=== PATIENT | female | born 1965 | race Caucasian/White ===

== ENCOUNTER → 2017-09-08 11:16 | Outpatient (CLI) | payer MEDICAID, SELFPAY ==
--- NOTE | 2017-09-08 11:21 | XR_ITS ---
XR knee LT 3V HISTORY: ITS.REASON: LEFT KNEE PAIN ORDERING PHYSICIAN: Bruce Ibrahim MD PATIENT AGE: 52 years COMPARISON: FINDINGS: No fracture or dislocation. No lytic or blastic change. Normal mineralization. No significant arthritic changes evident. No other significant findings IMPRESSION: Negative Knee
== END ==
PROVIDERS: PCP Family Medicine; Visit Provider Family Medicine
DX: M25.562 Pain in left knee (principal)
CPT/HCPCS: 73562

== ENCOUNTER → 2017-09-30 09:02 | Outpatient (CLI) | payer MEDICAID, SELFPAY ==
[2017-09-30 13:55] LABS: Alanine Aminotransferase 22 U/L (12-78); Albumin Level 3.8 gm/dL (3.4-5.0); Alkaline Phosphatase 87 U/L (46-116); Aspartate Amino Transferase 7 U/L (15-37); Bilirubin,Direct 0.1 mg/dL (0.0-0.2); Bilirubin,Indirect 0.5 mg/dL (0.0-0.9); Bilirubin,Total 0.6 mg/dL (0.2-1.0); Chol/HDL Ratio 2.7 (1-3.5); Cholesterol 144 mg/dL (140-200); HDL Cholesterol 53 mg/dL (29-89); LDL Cholesterol 63 mg/dL (0-130); Total Protein,Serum 6.8 gm/dL (6.4-8.2); Triglycerides 138 mg/dL (30-200); VLDL Cholesterol 28 mg/dL (0-40)
[2017-09-30 13:58] LABS: Hemoglobin A1C 6.2 % (0.0-7.0)
== END ==
PROVIDERS: PCP Family Medicine; Visit Provider Internal Medicine
DX: I25.10 Atherosclerotic heart disease of native coronary artery without angina pectoris (principal); E11.9 Type 2 diabetes mellitus without complications
CPT/HCPCS: 36415; 80061; 80076; 83036

== ENCOUNTER → 2018-04-13 08:13 | Outpatient (CLI) | payer MEDICAID, SELFPAY ==
[2018-04-13 15:53] LABS: Alanine Aminotransferase 21 U/L (12-78); Albumin Level 3.7 gm/dL (3.4-5.0); Alkaline Phosphatase 88 U/L (46-116); Anion Gap 12.8 mEq/L (5-15); Aspartate Amino Transferase 5 U/L (15-37); Bilirubin,Direct 0.1 mg/dL (0.0-0.2); Bilirubin,Indirect 0.3 mg/dL (0.0-0.9); Bilirubin,Total 0.4 mg/dL (0.2-1.0); Blood Urea Nitrogen 11 mg/dL (7-18); Calcium 9.5 mg/dL (8.5-10.1); Carbon Dioxide 29 mmol/L (21.0-32.0); Chloride 103 mmol/L (98-107); Chol/HDL Ratio 2.6 (1-3.5); Cholesterol 146 mg/dL (140-200); Creatinine,Serum 0.78 mg/dL (0.55-1.02); Estimated Glomerular Filt Rate 78 ml/min (>60); Free Thyroxine Index 3.7 ug/dL (5.93-13.13); GFR (African American) 94 ML/MIN (>60); Glucose 104 mg/dL (74-106); HDL Cholesterol 56 mg/dL (29-89); LDL Cholesterol 60 mg/dL (0-130); Potassium 3.8 mmoL/L (3.5-5.1); Sodium 141 mmol/L (136-145); Total Protein,Serum 6.7 gm/dL (6.4-8.2); Triglycerides 149 mg/dL (30-200); Triiodothryronine (T3) Uptake 34 % (31-39); VLDL Cholesterol 30 mg/dL (0-40)
[2018-04-14 10:20] LABS: Hemoglobin A1C 6.5 % (0.0-7.0)
== END ==
PROVIDERS: PCP Family Medicine; Visit Provider Urology
DX: E03.9 Hypothyroidism, unspecified (principal); E11.9 Type 2 diabetes mellitus without complications; E78.5 Hyperlipidemia, unspecified; I10 Essential (primary) hypertension; I11.9 Hypertensive heart disease without heart failure; I25.10 Atherosclerotic heart disease of native coronary artery without angina pectoris
CPT/HCPCS: 36415; 80048; 80061; 80076; 83036; 84436; 84443; 84479

== ENCOUNTER → 2018-04-14 07:09 | Outpatient (CLI) | payer MEDICAID, SELFPAY ==
--- NOTE | 2018-04-14 07:10 | NM_ITS ---
SPECT MYOCARDIAL PERFUSION SCAN, REST AND STRESS: EXERCISE STRESS: [facility] REVIEW QGS EF AND WALL MOTION EVALUATION: QPS - PERFUSION EVALUATION: HISTORY: CAD, HTN, DM PROCEDURE: Rest imaging performed after administration of10.67 millicuries Tc MIBI. Dose administered at7:20 a.m., with imaging thereafter. Stress imaging was then performed following7 minutes 30 seconds of exercise stress. The patient achieved a heart [id number] with projected heart rate of143 . Resting BP133/67 with stress 164/76. At maximum exercise stress,32.9 millicuries Tc MIBI administered at8:45 a.m. with [id number] minutes thereafter. FINDINGS: Perfusion Evaluation: The single slice spect images as well as the [facility] bull's-eye data summary were reviewed. Wall Motion and Ejection Fraction Evaluation: Gated SPECT review and analysis used to evaluate these features. There is a 48 % left ventricular ejection fraction. There seems to be good wall motion Decreased myocardial activity in the lateral wall with both stress and rest gated images calculated ejection fraction of 48% with lateral wall hypokinesis IMPRESSION: Previous transmural myocardial infarction involving the lateral wall without reversible ischemia accompanied by mild regional wall motion abnormality. Clinical correlation advised
--- NOTE | 2018-04-14 07:24 | HMH.ITSHM ---
Current Home Medications as stated by this patient Sarah Reddy or procurement representative. []LISINOPRIL/HCTZ CRESTOR SYNTHROID ASA METFORMIN VITAMINS LASIX
== END ==
PROVIDERS: PCP Family Medicine; Visit Provider Internal Medicine
DX: I25.10 Atherosclerotic heart disease of native coronary artery without angina pectoris (principal); E11.9 Type 2 diabetes mellitus without complications; E03.9 Hypothyroidism, unspecified; E78.5 Hyperlipidemia, unspecified; I10 Essential (primary) hypertension; I11.9 Hypertensive heart disease without heart failure
CPT/HCPCS: 78452; 93017; A9502

== ENCOUNTER → 2018-05-27 08:47 | Outpatient (CLI) | payer MEDICAID, SELFPAY ==
--- NOTE | 2018-05-27 08:52 | US_ITS ---
US abdomen limited History:Right upper quadrant pain with nausea Ordering Physician:Bruce Ibrahim MD Patient Age: 53 years Comparison:None Findings: Pancreas:Unremarkable. No obvious mass or abnormal fluid collection. No ductal dilatation Liver:Unremarkable. No obvious mass or abnormal fluid collection. No ductal dilatation Right Kidney:Unremarkable. Normal size and echogenicity. No hydronephrosis Gallbladder:No gallstones, gallbladder wall thickening, pericholecystic fluid, or biliary dilatation. Impression:Negative gallbladder/right upper quadrant ultrasound
== END ==
PROVIDERS: PCP Family Medicine; Visit Provider Family Medicine
DX: R10.11 Right upper quadrant pain (principal)
CPT/HCPCS: 76705

== ENCOUNTER → 2018-06-02 10:02 | Outpatient (CLI) | payer MEDICAID, SELFPAY ==
--- NOTE | 2018-06-02 10:06 | NM_ITS ---
NM hepatobiliary wo pharm HISTORY: Right upper quadrant pain ITS.REASON: RUQ PAIN ORDERING PHYSICIAN: Bruce Ibrahim MD PATIENT AGE: 53 years COMPARISON: None DOSE: 8.39 MCI TC Choletec INJ into LT ANT Fatty Meal Ensure FINDINGS: Homogeneous activity is present within the hepatic parenchyma. Activity is present in the gallbladder by 10 minutes. Activity is present in the small bowel by 20 minutes. The gallbladder ejection fraction is calculated to be 49% The patient reported mild pain with fatty meal. IMPRESSION: Unremarkable hepatobiliary scan and gallbladder ejection fraction. No evidence of common or cystic duct obstruction with normal gallbladder ejection fraction Patient did report mild pain with the fatty meal
--- NOTE | 2018-06-02 10:29 | HMH.ITSHM ---
Current Home Medications as stated by this patient Sarah Reddy or telesales representative. []ROSUVASTATIN PANTOPRAZOLE MONTELUKAST METFORMIN MEDROXYPROGESTERONE LISINOPRIL LEVOTHYROXINE FUROSEMIDE ASA
== END ==
PROVIDERS: PCP Family Medicine; Visit Provider Family Medicine
DX: R10.11 Right upper quadrant pain (principal)
CPT/HCPCS: 78226; A9537

== ENCOUNTER → 2018-07-13 10:18 | Outpatient (CLI) | payer MEDICAID, SELFPAY ==
[2018-07-13 13:37] LABS: Basophils # 0.1 K/mm3 (0-0.2); Eosinophils # 0.1 K/mm3 (0.0-0.4); Hematocrit 38.5 % (37.0-47.0); Hemoglobin 12.9 g/dL (12.2-16.2); Lymphocytes # 2.3 K/mm3 (0.7-4.5); Lymphocytes % 37.1 % (10-50); Mean Corpuscular HGB Conc 33.5 g/dL (31.8-35.4); Mean Corpuscular Hemoglobin 29.2 pg (27.0-31.2); Mean Corpuscular Volume 87.1 fl (81-99); Mean Platelet Volume 7.5 fl (7.4-10.4); Monocytes # 0.3 K/mm3 (0.1-1.0); Neutrophils # 3.5 K/mm3 (1.8-7.8); Neutrophils % 54.9 % (37.0-80.0); Platelet Count 454 K/mm3 (142-424); Red Blood Count 4.42 M/mm3 (4.20-5.40); Red Cell Distribution Width 12.9 % (11.5-17.5); White Blood Count 6.3 K/mm3 (4.8-10.8)
[2018-07-13 14:02] LABS: Alanine Aminotransferase 20 U/L (12-78); Albumin Level 3.9 gm/dL (3.4-5.0); Albumin/Globulin Ratio 1.2 (1.1-1.8); Alkaline Phosphatase 82 U/L (46-116); Anion Gap 16.1 mEq/L (5-15); Aspartate Amino Transferase 10 U/L (15-37); Bilirubin,Total 0.5 mg/dL (0.2-1.0); Blood Urea Nitrogen 12 mg/dL (7-18); Calcium 9.9 mg/dL (8.5-10.1); Carbon Dioxide 27 mmol/L (21.0-32.0); Chloride 101 mmol/L (98-107); Creatinine,Serum 0.74 mg/dL (0.55-1.02); Estimated Glomerular Filt Rate 82 ml/min (>60); GFR (African American) 99 ML/MIN (>60); Globulin 3.2 gm/dl (1.3-3.2); Glucose 101 mg/dL (74-106); Potassium 4.1 mmoL/L (3.5-5.1); Sodium 140 mmol/L (136-145); Total Protein,Serum 7.1 gm/dL (6.4-8.2)
== END ==
PROVIDERS: PCP Family Medicine; Visit Provider Surgery
DX: K82.8 Other specified diseases of gallbladder (principal)
CPT/HCPCS: 36415; 80053; 85025

== ENCOUNTER → 2018-10-12 10:19 | Outpatient (CLI) | payer MEDICAID, SELFPAY ==
[2018-10-12 13:58] LABS: Basophils # 0.1 K/mm3 (0-0.2); Basophils % 1.3 % (0.1-2.0); Eosinophils # 0.2 K/mm3 (0.0-0.4); Eosinophils % 3.1 % (0.1-12.0); Hematocrit 36.2 % (37.0-47.0); Hemoglobin 11.7 g/dL (12.2-16.2); Lymphocytes # 2.2 K/mm3 (0.7-4.5); Lymphocytes % 34.5 % (10-50); Mean Corpuscular HGB Conc 32.4 g/dL (31.8-35.4); Mean Corpuscular Hemoglobin 27.6 pg (27.0-31.2); Mean Platelet Volume 8.4 fl (7.4-10.4); Monocytes # 0.3 K/mm3 (0.1-1.0); Neutrophils # 3.5 K/mm3 (1.8-7.8); Neutrophils % 56.1 % (37.0-80.0); Platelet Count 431 K/mm3 (142-424); Red Blood Count 4.26 M/mm3 (4.20-5.40); White Blood Count 6.3 K/mm3 (4.8-10.8)
[2018-10-12 14:30] LABS: Alanine Aminotransferase 23 U/L (12-78); Albumin Level 3.8 gm/dL (3.4-5.0); Alkaline Phosphatase 88 U/L (46-116); Aspartate Amino Transferase 13 U/L (15-37); Bilirubin,Direct 0.1 mg/dL (0.0-0.2); Bilirubin,Indirect 0.3 mg/dL (0.0-0.9); Bilirubin,Total 0.4 mg/dL (0.2-1.0); Blood Urea Nitrogen 10 mg/dL (7-18); Carbon Dioxide 26 mmol/L (21.0-32.0); Chloride 106 mmol/L (98-107); Chol/HDL Ratio 2.7 (1-3.5); Cholesterol 134 mg/dL (140-200); Estimated Glomerular Filt Rate 88 ml/min (>60); Free T4 (Free Thyroxine) 1.25 ng/dl (0.76-1.46); GFR (African American) 106 ML/MIN (>60); Glucose 99 mg/dL (74-106); HDL Cholesterol 50 mg/dL (29-89); LDL Cholesterol 57 mg/dL (0-130); Sodium 142 mmol/L (136-145); Thyroid Stimulating Hormone 1.54 uIU/ml (0.358-3.740); Total Protein,Serum 6.4 gm/dL (6.4-8.2); Triglycerides 137 mg/dL (30-200); VLDL Cholesterol 27 mg/dL (0-40)
[2018-10-12 14:34] LABS: Hemoglobin A1C 6.7 % (0.0-7.0)
== END ==
PROVIDERS: PCP Family Medicine; Visit Provider Nurse Practitioner Family
DX: E07.9 Disorder of thyroid, unspecified (principal); E11.9 Type 2 diabetes mellitus without complications; E78.5 Hyperlipidemia, unspecified
CPT/HCPCS: 36415; 80048; 80061; 80076; 83036; 84439; 84443; 85025

== ENCOUNTER → 2019-04-08 10:05 | Outpatient (CLI) | payer OTHER, SELFPAY ==
--- NOTE | 2019-04-08 10:06 | CA_ITS ---
APPROVED REPORT Principal Librarian: Carol Huitron RVT Laterality: Bilateral Study Quality: Good Indications: DARNELL Risk Factors Diabetes Doppler Spectral Velocity Analysis ECA (R) 116.40/18.40 cm/s ECA (L) 75.80/15.30 cm/s dICA (R) 76.20/23.10 cm/s dICA (L) 97.70/32.10 cm/s Michelle (R) 82.40/34.70 cm/s Michelle (L) 88.90/34.30 cm/s pICA (R) 79.70/29.10 cm/s pICA (L) 75.70/25.80 cm/s dCCA (R) 73.70/24.80 cm/s dCCA (L) 75.80/20.70 cm/s pCCA (R) 97.70/22.30 cm/s pCCA (L) 91.20/24.50 cm/s Vert (R) 53.80/12.90 cm/s Vert (L) 63.40/20.40 cm/s ICA/CCA 1.12 ICA/CCA 1.29 Conclusion Study suggests normal bilateral internal cartoid arteries, no evidence of stenosis. Antegrade flow seen bilateral vertebral arteries. Electronically signed by : Nabor Wu MD 04/08/2019 15:42:07
== END ==
PROVIDERS: PCP Family Medicine; Visit Provider Physician Assistant
DX: I65.23 Occlusion and stenosis of bilateral carotid arteries (principal)
CPT/HCPCS: 93880

== ENCOUNTER → 2019-06-13 09:33 | Outpatient (CLI) | payer OTHER, SELFPAY ==
[2019-06-13 13:43] LABS: Basophils # 0.1 K/mm3 (0-0.2); Basophils % 1.2 % (0.1-2.0); Eosinophils # 0.3 K/mm3 (0.0-0.4); Hematocrit 35.6 % (37.0-47.0); Lymphocytes # 2.3 K/mm3 (0.7-4.5); Lymphocytes % 34.3 % (10-50); Mean Corpuscular HGB Conc 33.7 g/dL (31.8-35.4); Mean Corpuscular Hemoglobin 28.3 pg (27.0-31.2); Mean Platelet Volume 8.3 fl (7.4-10.4); Monocytes # 0.3 K/mm3 (0.1-1.0); Monocytes % 4.6 % (1.7-9.3); Neutrophils # 3.7 K/mm3 (1.8-7.8); Platelet Count 505 K/mm3 (142-424); Red Blood Count 4.24 M/mm3 (4.20-5.40); Red Cell Distribution Width 13.4 % (11.5-17.5); White Blood Count 6.7 K/mm3 (4.8-10.8)
[2019-06-13 13:55] LABS: Alanine Aminotransferase 21 U/L (9-52); Albumin Level 3.8 g/dL (3.4-5.0); Albumin/Globulin Ratio 1.3 (1.1-1.8); Alkaline Phosphatase 81 U/L (46-116); Amylase 63 U/L (25-115); Anion Gap 15.1 mEq/L (5-15); Aspartate Amino Transferase 12 U/L (15-37); Bilirubin,Total 0.4 mg/dL (0.2-1.0); Blood Urea Nitrogen 11 mg/dL (7-18); Calcium 9.6 mg/dL (8.5-10.1); Carbon Dioxide 28 mmol/L (21.0-32.0); Chloride 104 mmol/L (98-107); Creatinine,Serum 0.75 mg/dL (0.55-1.02); Estimated Glomerular Filt Rate 81 ml/min (>60); GFR (African American) 97 ML/MIN (>60); Globulin 2.9 gm/dl (1.3-3.2); Glucose 100 mg/dL (74-106); Lipase 105 u/L (73-393); Potassium 4.1 mmoL/L (3.5-5.1); Sodium 143 mmol/L (137-145); Total Protein,Serum 6.7 g/dL (6.4-8.2)
== END ==
PROVIDERS: Visit Provider Nurse Practitioner Family
DX: R10.11 Right upper quadrant pain (principal); R11.10 Vomiting, unspecified
CPT/HCPCS: 36415; 80053; 82150; 83690; 85025

== ENCOUNTER → 2019-06-14 09:36 | Outpatient (CLI) | payer OTHER, SELFPAY ==
--- NOTE | 2019-06-14 09:38 | MR_ITS ---
PROCEDURE: MR ABDOMEN WO/W CON CLINICAL INDICATION: ABDOMINAL PAIN, VOMITING Nausea COMPARISON: Status post cholecystectomy TECHNIQUE: Routine multiplanar multisequence exam with and without contrast administration was performed. 18 milliliters ProHance was given. FINDINGS: There is some patient motion artifact degradation of images. There is also some associated pulse a mckenzie artifact and artifact associated with bowel peristalsis. No space-occupying organ lesions are apparent. There is some signal loss on the opposed phase images throughout the liver indicating fatty infiltration. No abnormal mass or fluid collection is seen in the gallbladder fossa. No biliary ductal dilatation is apparent. There is no ascites or lymphadenopathy. IMPRESSION: No acute findings status post cholecystectomy. Dictated by: Carl Jensen 06/14/2019 13:22 Electronically signed by Carl Jensen in [place] 06/14/2019 13:22
== END ==
PROVIDERS: PCP Family Medicine; Visit Provider Nurse Practitioner Family
DX: R10.11 Right upper quadrant pain (principal); R11.10 Vomiting, unspecified
CPT/HCPCS: 74183; 76376; A9576

== ENCOUNTER → 2019-10-05 09:51 | Outpatient (CLI) | payer OTHER, SELFPAY ==
[2019-10-05 10:30] LABS: Basophils # 0.1 K/mm3 (0-0.2); Basophils % 0.9 % (0.1-2.0); Eosinophils # 0.1 K/mm3 (0.0-0.4); Eosinophils % 1.6 % (0.1-12.0); Hematocrit 36.8 % (37.0-47.0); Hemoglobin 12.5 g/dL (12.2-16.2); Lymphocytes # 2.5 K/mm3 (0.7-4.5); Lymphocytes % 29.2 % (10-50); Mean Corpuscular Hemoglobin 29.9 pg (27.0-31.2); Mean Platelet Volume 7.5 fl (7.4-10.4); Monocytes # 0.4 K/mm3 (0.1-1.0); Monocytes % 4.9 % (1.7-9.3); Neutrophils # 5.4 K/mm3 (1.8-7.8); Neutrophils % 63.3 % (37.0-80.0); Platelet Count 414 K/mm3 (142-424); Red Blood Count 4.18 M/mm3 (4.20-5.40); Red Cell Distribution Width 13.9 % (11.5-17.5); White Blood Count 8.6 K/mm3 (4.8-10.8)
[2019-10-05 11:18] LABS: Hemoglobin A1C 6.4 % (4.0-6.0)
[2019-10-05 11:32] LABS: Alanine Aminotransferase 18 U/L (12-78); Albumin Level 4.5 g/dl (3.5-5.0); Alkaline Phosphatase 87 U/L (38-126); Anion Gap 14.6 mEq/L (5-15); Aspartate Amino Transferase 17 U/L (14-36); Bilirubin,Indirect 0.4 mg/dL (0.0-0.9); Bilirubin,Total 0.4 mg/dl (0.2-1.3); Bilirubin,Unconjugated 0.4 mg/dL (0.0-1.1); Blood Urea Nitrogen 15 mg/dl (7-17); Calcium 10.7 mg/dl (8.4-10.2); Carbon Dioxide 29 mmol/L (22.0-30.0); Chloride 100 mmol/L (98-107); Chol/HDL Ratio 2.3 (1-3.5); Cholesterol 131 mg/dl (140-200); Estimated Glomerular Filt Rate 75 ml/min (>60); GFR (African American) 90 ML/MIN (>60); Glucose 105 mg/dl (74-100); HDL Cholesterol 58 mg/dl (40-60); Potassium 4.6 mmoL/L (3.5-5.1); Sodium 139 mmol/L (136-145); Triglycerides 208 mg/dl (30-150); VLDL Cholesterol 42 mg/dL (0-40)
[2019-10-05 11:43] LABS: Direct LDL Cholesterol 70.15 mg/dL (100-129)
== END ==
PROVIDERS: Visit Provider Nurse Practitioner Family
DX: E11.9 Type 2 diabetes mellitus without complications (principal); E78.2 Mixed hyperlipidemia; I10 Essential (primary) hypertension; I11.9 Hypertensive heart disease without heart failure; I25.10 Atherosclerotic heart disease of native coronary artery without angina pectoris; I65.23 Occlusion and stenosis of bilateral carotid arteries; Z79.84 Long term (current) use of oral hypoglycemic drugs
CPT/HCPCS: 80048; 80061; 80076; 83036; 85025

== ENCOUNTER → 2019-10-24 14:33 | Outpatient (CLI) | payer OTHER, SELFPAY ==
[2019-10-26 13:30] LABS: Covid-19 Nasal PCR Sendout Lex Not Detected
== END ==
PROVIDERS: Visit Provider Family Medicine
DX: Z03.818 Encounter for observation for suspected exposure to other biological agents ruled out (principal); Z11.59 Encounter for screening for other viral diseases
CPT/HCPCS: U0004

== ENCOUNTER → 2020-10-02 15:21 | Outpatient (CLI) | payer OTHER, SELFPAY ==
--- NOTE | 2020-10-02 15:25 | XR_ITS ---
PROCEDURE: XR HAND LT MIN 3V CLINICAL INDICATION: dropped post on her left hand COMPARISON: No exams were available for comparison FINDINGS: Comminuted fracture involves the tuft of the distal phalanx of the index finger with no displacement. Ring artifact is present along the proximal phalanx of the 4th finger and could obscure an underlying fracture. The joint spaces are well-preserved. No significant degenerative/arthritic changes. No erosive changes evident. Other findings:None. IMPRESSION: Comminuted nondisplaced fracture distal phalanx 2nd digit Dictated by: Nabor Wu MD 10/02/2020 15:56 Nabor Wu MD in [place] 10/02/2020 15:56
== END ==
PROVIDERS: PCP Family Medicine; Visit Provider Urology
DX: M79.642 Pain in left hand (principal)
CPT/HCPCS: 73130

== ENCOUNTER → 2020-10-03 08:24 | Outpatient (CLI) | payer OTHER, SELFPAY ==
[2020-10-03 10:13] LABS: Basophils # 0.1 K/mm3 (0-0.2); Basophils % 1.3 % (0.1-2.0); Eosinophils # 0.2 K/mm3 (0.0-0.4); Eosinophils % 2.4 % (0.1-12.0); Hematocrit 34.9 % (37.0-47.0); Hemoglobin 11.7 g/dL (12.2-16.2); Lymphocytes # 2.4 K/mm3 (0.7-4.5); Lymphocytes % 34.4 % (10-50); Mean Corpuscular HGB Conc 33.6 g/dL (31.8-35.4); Mean Corpuscular Hemoglobin 28.8 pg (27.0-31.2); Mean Corpuscular Volume 85.6 fl (81-99); Mean Platelet Volume 8.6 fl (7.4-10.4); Monocytes # 0.4 K/mm3 (0.1-1.0); Platelet Count 430 K/mm3 (142-424); Red Blood Count 4.07 M/mm3 (4.20-5.40); Red Cell Distribution Width 13.8 % (11.5-17.5); White Blood Count 7.1 K/mm3 (4.8-10.8)
[2020-10-03 10:42] LABS: Hemoglobin A1C 5.8 % (4.0-6.0)
[2020-10-03 10:43] LABS: Chloride 102 mmol/L (98-107); Sodium 138 mmol/L (136-145)
[2020-10-03 10:44] LABS: Potassium 4.3 mmoL/L (3.5-5.1)
[2020-10-03 10:46] LABS: Alanine Aminotransferase 18 U/L (12-78); Albumin Level 4.3 g/dl (3.5-5.0); Alkaline Phosphatase 78 U/L (38-126); Anion Gap 15.3 mEq/L (5-15); Aspartate Amino Transferase 18 U/L (14-36); Bilirubin,Direct 0.2 mg/dl (0.0-0.4); Bilirubin,Indirect 0.4 mg/dL (0.0-0.9); Bilirubin,Total 0.6 mg/dl (0.2-1.3); Bilirubin,Unconjugated 0.4 mg/dL (0.0-1.1); Blood Urea Nitrogen 14 mg/dl (7-17); Carbon Dioxide 25 mmol/L (22.0-30.0); Cholesterol 143 mg/dl (140-200); Estimated Glomerular Filt Rate 74 ml/min (>60); GFR (African American) 90 ML/MIN (>60); Triglycerides 228 mg/dl (30-150); VLDL Cholesterol 46 mg/dL (0-40)
[2020-10-03 10:47] LABS: Calcium 9.5 mg/dl (8.4-10.2); Glucose 94 mg/dl (74-100); HDL Cholesterol 44 mg/dl (40-60); Total Protein,Serum 6.7 g/dl (6.3-8.2)
[2020-10-03 10:58] LABS: Direct LDL Cholesterol 61.48 mg/dL (100-129)
[2020-10-03 11:03] LABS: Free T4 (Free Thyroxine) 1.52 ng/dl (0.78-2.19)
[2020-10-03 11:16] LABS: Thyroid Stimulating Hormone 3.15 uIU/mL (0.465-4.68)
[2020-10-03 12:19] LABS: Hemoglobin A1C 5.9 % (4.0-6.0)
== END ==
PROVIDERS: Visit Provider Urology
DX: I25.10 Atherosclerotic heart disease of native coronary artery without angina pectoris (principal); I11.9 Hypertensive heart disease without heart failure; E78.2 Mixed hyperlipidemia; E11.9 Type 2 diabetes mellitus without complications; Z79.84 Long term (current) use of oral hypoglycemic drugs
CPT/HCPCS: 36415; 80048; 80061; 80076; 83036; 84439; 84443; 85025

== ENCOUNTER → 2020-10-08 12:46 | Outpatient (CLI) | payer OTHER, SELFPAY ==
--- NOTE | 2020-10-08 12:47 | CA_ITS ---
APPROVED REPORT Garment Cutter: LORIN Laterality: Bilateral Study Quality: Good Indications: dizziness, Family hx-DARNELL Doppler Spectral Velocity Analysis ECA (R) 86.00/16.50 cm/s ECA (L) 57.70/14.40 cm/s dICA (R) 86.80/43.40 cm/s dICA (L) 100.20/50.10 cm/s Michelle (R) 88.00/40.00 cm/s Michelle (L) 93.10/44.90 cm/s pICA (R) 75.60/26.90 cm/s pICA (L) 49.70/21.90 cm/s dCCA (R) 72.80/28.30 cm/s dCCA (L) 69.60/28.40 cm/s mCCA (R) 101.60/39.70 cm/s mCCA (L) 93.00/45.00 cm/s pCCA (R) 120.80/34.20 cm/s pCCA (L) 120.50/36.70 cm/s Vert (R) 50.10/19.50 cm/s Vert (L) 57.80/23.10 cm/s ICA/CCA 1.20 ICA/CCA 1.40 Findings Duplex evaluation demonstrates stenosis of the right proximal internal carotid artery in the range of 20-49%. Duplex evaluation demonstrates stenosis of the left proximal internal carotid artery in the range of 20-49%. Spectral broadening present in bilateral Internal Carotid arteries. Duplex evaluation demonstrates antegrade flow of the bilateral Vertebral Arteries. Conclusion Duplex evaluation demonstrates stenosis of the right proximal internal carotid artery in the range of 20-49%. Duplex evaluation demonstrates stenosis of the left proximal internal carotid artery in the range of 20-49%. Spectral broadening present in bilateral Internal Carotid arteries. Duplex evaluation demonstrates antegrade flow of the bilateral Vertebral Arteries. Electronically signed by : Dev Walsh, 10/08/2020 15:25:56
== END ==
PROVIDERS: PCP Family Medicine; Visit Provider Urology
DX: R42 Dizziness and giddiness (principal); I25.10 Atherosclerotic heart disease of native coronary artery without angina pectoris; I11.9 Hypertensive heart disease without heart failure; E78.2 Mixed hyperlipidemia
CPT/HCPCS: 93880

== ENCOUNTER → 2020-10-23 12:22 | Outpatient (CLI) | payer OTHER, SELFPAY ==
--- NOTE | 2020-10-23 12:25 | XR_ITS ---
PROCEDURE: XR FINGER LT MIN 2V CLINICAL INDICATION: left 2nd digit fracture COMPARISON: CR XR HAND LT MIN 3V from 10/02/2020 FINDINGS: There is a nondisplaced comminuted fracture involving the tuft of the distal phalanx the index finger not significantly changed. The joint spaces are well-preserved. No significant degenerative/arthritic changes. No erosive changes evident. Other findings:None. IMPRESSION: No change comminuted fracture distal phalanx index finger Dictated by: Nabor Wu MD 10/23/2020 12:32 Nabor Wu MD in [place] 10/23/2020 12:32
== END ==
PROVIDERS: PCP Family Medicine; Visit Provider Orthopaedic Surgery
DX: S62.609A Fracture of unspecified phalanx of unspecified finger, initial encounter for closed fracture (principal)
CPT/HCPCS: 73140

== ENCOUNTER → 2020-11-16 10:16 | Outpatient (CLI) | payer OTHER, SELFPAY ==
--- NOTE | 2020-11-16 10:20 | XR_ITS ---
PROCEDURE: XR FINGER LT MIN 2V CLINICAL INDICATION: LT 2nd digit fx COMPARISON: CR XR FINGER LT MIN 2V from 10/23/2020 FINDINGS: Healing comminuted undisplaced fracture of the tuft of the distal phalanx of the 2nd digit. Bone density is within normal limits. The interphalangeal joints are unremarkable. No significant soft tissue abnormality is noted. IMPRESSION: Healing comminuted undisplaced fracture of the tuft of the distal phalanx of the 2nd digit. Dictated by: Kathia Andres 11/16/2020 13:52 Kathia Andres in [place] 11/16/2020 13:52
== END ==
PROVIDERS: PCP Family Medicine; Visit Provider Orthopaedic Surgery
DX: S62.609A Fracture of unspecified phalanx of unspecified finger, initial encounter for closed fracture (principal)
CPT/HCPCS: 73140

== ENCOUNTER → 2021-06-06 15:40 | Outpatient (CLI) | payer OTHER, SELFPAY | PROVIDERS: Visit Provider Nurse Practitioner | DX: U07.1 COVID-19 (principal) | CPT/HCPCS: C9803; U0003; U0005 ==

== ENCOUNTER → 2021-07-09 17:07 | Outpatient (CLI) | payer OTHER, SELFPAY ==
--- NOTE | 2021-07-09 17:33 | CT_ITS ---
PROCEDURE INFORMATION: Exam: CTA Chest With Contrast Exam date and time: 07/09/2021 5:33 PM Age: 56 years old Clinical indication: Pain; Chest pressure; Additional info: Chest discomfort TECHNIQUE: Imaging protocol: Computed tomographic angiography of the chest with contrast. 3D rendering (Not supervised by radiologist): MIP and/or 3D reconstructed images were created by the technologist. Radiation optimization: All CT scans at this facility use at least one of these dose optimization techniques: automated exposure control; mA and/or kV adjustment per patient size (includes targeted exams where dose is matched to clinical indication); or iterative reconstruction. Contrast material: ISOVUE 370; Contrast volume: 70 ml; Contrast route: INTRAVENOUS (IV); COMPARISON: CR XR CHEST PORTABLE 05/21/2019 7:01 PM FINDINGS: Pulmonary arteries: No acute pulmonary emboli. There are some motion artifacts. No large, central, or segmental emboli. Aorta: There is no aortic aneurysm. There is no evidence of dissection in the chest. Lungs: No acute findings. There is no pulmonary consolidation. No masses. Pleural spaces: Unremarkable. No significant pleural effusion. No pneumothorax. Heart: The heart is not enlarged. Coronary artery calcification is present. No significant pericardial effusion. Heart RV/LV ratio: RV/LV ratio less than 1, approximate 0.8, within normal limits. There is no reflux of contrast into the IVC and hepatic veins to suggest right heart strain. Lymph nodes: No significantly enlarged lymph nodes by short axis criteria. Gallbladder and bile ducts: Cholecystectomy clips. Biliary tree appears within normal limits, as visualized. Bones/joints: There are spinal degenerative changes, with prominent multilevel disc narrrowing and spondylosis. Mild chronic appearing anterior wedge compression deformities in the mid and lower thoracic spine with mild kyphosis. No acute appearing fracture or high-grade listhesis. Soft tissues: There are no soft tissue masses or fluid collections. IMPRESSION: 1. No acute pulmonary emboli. 2. Coronary artery calcifications. No cardiomegaly or signs of acute right heart strain. 3. No acute cardiopulmonary findings. No pulmonary consolidation or signs of vascular congestion. 4. Prominent thoracic spine degenerative changes. 5. Additional nonemergency and chronic findings as above.
[2021-07-09 18:09] LABS: Blood Urea Nitrogen 15 mg/dl (7-17); Estimated Glomerular Filt Rate 87 ml/min (>60); GFR (African American) 105 ML/MIN (>60)
== END ==
PROVIDERS: PCP Family Medicine; Visit Provider Family Medicine
DX: R06.09 Other forms of dyspnea (principal); U09.9 Post COVID-19 condition, unspecified
CPT/HCPCS: 36415; 71275; 82565; 84520; Q9967

== ENCOUNTER → 2021-08-07 11:45 | Outpatient (CLI) | payer OTHER, SELFPAY ==
--- NOTE | 2021-08-07 11:49 | CT_ITS ---
FINAL REPORT TECHNIQUE: After the administration of oral and intravenous contrast, axial images were obtained through the abdomen and pelvis by computed tomography. The study was performed with techniques to keep radiation dose as low as reasonably achievable, (ALARA). Individual dose reduction techniques using automated exposure control or adjustment of mA and/or kV according to the patient's size were employed. CLINICAL HISTORY: LEFT LOWER QUADRANT ABDOMINAL PAIN COMPARISON: May 21, 2019 FINDINGS: Abdomen: The lung bases are clear. The liver parenchyma is homogeneous. The gallbladder is absent. There are a few scattered calcifications in the pancreas that may be sequela of prior pancreatitis. The spleen, adrenals and kidneys appear unremarkable. The aorta is normal in caliber. There is no free fluid or adenopathy. There is mild prominence of proximal small bowel that is nonspecific. Pelvis: The appendix is not identified. The urinary bladder is unremarkable. There is a 6.6 x 6.2 cm left adnexal cyst that previously measured 5.5 cm. There is abnormal mucosal thickening involving the descending and sigmoid colon junction with pericolonic inflammation and inflammation surrounding a diverticulum consistent with acute uncomplicated diverticulitis. IMPRESSION: Nonspecific prominence of proximal small bowel. Acute uncomplicated diverticulitis at the junction of the descending and sigmoid colon. Interval increase in a left adnexal cyst. Recommend gynecologic evaluation. Endovaginal ultrasound may be of value. Reviewed, Interpreted and Dictated by Lenny Price MD Transcribed by Efren Calderón Authenticated by Lenny Price MD on 08/07/2021 03:26:55 PM [facility]
== END ==
PROVIDERS: PCP Family Medicine; Visit Provider Physician Assistant
DX: R10.32 Left lower quadrant pain (principal)
CPT/HCPCS: 74176

== ENCOUNTER → 2021-08-30 14:08 | Outpatient (CLI) | payer OTHER, SELFPAY ==
[2021-08-30 15:19] LABS: Blood Urea Nitrogen 12 mg/dl (7-17); Estimated Glomerular Filt Rate 74 ml/min (>60); GFR (African American) 90 ML/MIN (>60)
== END ==
PROVIDERS: Internal Medicine Gastroenterology; Visit Provider Nurse Practitioner Family
DX: Z01.812 Encounter for preprocedural laboratory examination (principal)
CPT/HCPCS: 36415; 82565; 84520

== ENCOUNTER → 2021-09-02 10:54 | Outpatient (CLI) | payer OTHER, SELFPAY ==
--- NOTE | 2021-09-02 11:01 | CT_ITS ---
FINAL REPORT CLINICAL HISTORY: LLQ ABD PAIN/BLOATING COMPARISON: August 07, 2021 FINDINGS: CT OF THE ABDOMEN AND PELVIS WITH CONTRAST Axial CT images of the abdomen and pelvis were obtained after the administration of oral and iv contrast. Coronal reformatted images were also obtained and reviewed.This study was performed with techniques to keep radiation doses as low as reasonably achievable (ALARA). Individualized dose reduction techniques using automated exposure control or adjustment of mA and/or kV according to the patient's size were employed. Abdomen: The lung bases are clear. The heart is normal in size. The liver has an unremarkable appearance. There has been cholecystectomy. There is mild biliary duct dilatation favoring post cholecystectomy change. The spleen is unremarkable. No adrenal mass is present. The pancreas has an unremarkable appearance. The kidneys are normal, without evidence of mass or hydronephrosis. The aorta is normal in caliber. There is no free fluid or adenopathy. No mass or abnormal fluid collection is seen. Pelvis: The appendix is not well-visualized. The urinary bladder is unremarkable. There is improved inflammatory change adjacent to the sigmoid colon the consistent with improved diverticulitis with mild persistent stranding. A 6.7 cm left adnexal cystic mass previously measured 6.5 cm. There is no evidence of bowel obstruction. IMPRESSION: Improved sigmoid diverticulitis with mild persistent adjacent fat stranding. 6.7 cm left adnexal cystic mass previously measured 6.5 cm worrisome for cystic neoplasm or other cyst. Reviewed, Interpreted and Dictated by Jassi Graves III, MD Transcribed by Efren Calderón Authenticated by Jassi Graves III, MD on 09/02/2021 12:32:25 PM [facility]
== END ==
PROVIDERS: PCP Family Medicine; Visit Provider Nurse Practitioner Family
DX: R10.32 Left lower quadrant pain (principal); R14.0 Abdominal distension (gaseous); K57.92 Diverticulitis of intestine, part unspecified, without perforation or abscess without bleeding
CPT/HCPCS: 74177; Q9967

== ENCOUNTER → 2021-09-10 14:19 | Outpatient (CLI) | payer OTHER, SELFPAY ==
--- NOTE | 2021-09-10 14:22 | US_ITS ---
FINAL REPORT CLINICAL HISTORY: OVARIAN CYST FINDINGS: Transvaginal sonographic images of the pelvis were obtained. The uterus measures 6.1 x 3.1 x 3.7 cm. The endometrium measures 6 mm, which is mildly thickened in this postmenopausal patient. No uterine mass is identified. The right ovary is not visualized. The left ovary measures 7.4 x 5.9 x 6.6 cm. There is a 6.7 cm cystic left adnexal mass with a small septum within the mass. This may represent a cyst or cystic neoplasm. There is no evidence of free fluid. IMPRESSION: 6.7 cm cystic left adnexal mass may represent a cyst versus cystic neoplasm. Reviewed, Interpreted and Dictated by Jassi Graves III, MD Transcribed by Criss Bear Authenticated by Jassi Graves III, MD on 09/11/2021 08:06:55 AM [facility]
== END ==
PROVIDERS: PCP Family Medicine; Visit Provider Family Medicine
DX: N83.209 Unspecified ovarian cyst, unspecified side (principal)
CPT/HCPCS: 76830

== ENCOUNTER → 2021-09-16 09:56 | Outpatient (CLI) | payer OTHER, SELFPAY | PROVIDERS: Visit Provider Nurse Practitioner Obstetrics & Gynecology | DX: N83.209 Unspecified ovarian cyst, unspecified side (principal) | CPT/HCPCS: 36415; 86316 ==

== ENCOUNTER → 2021-09-18 07:50 | Outpatient (CLI) | payer OTHER, SELFPAY ==
--- NOTE | 2021-09-18 07:51 | MM_ITS ---
PROCEDURE INFORMATION: Exam: MG Bilateral Screening 3D Mammography Exam date and time: 09/18/2021 8:01 AM Age: 56 years old Clinical indication: Screening. No family history of breast cancer. TECHNIQUE: Imaging protocol: Bilateral Screening tomosynthesis and 2D mammography including computer-aided detection (CAD) when performed. COMPARISON: 1. MG DMSB DIGITAL MAMM-SCREEN BILATERAL 07/14/2012 4:06 PM 2. MG DIGMAMMDX MAMMOGRAM DX-SOLE CUTTER N/C 07/14/2005 4:04 PM 3. MG DIGMAMMDX MAMMOGRAM DX-SOLE CUTTER N/C 07/03/2004 4:15 PM 4. MG DIGMAMMDX MAMMOGRAM DX-SOLE CUTTER N/C 03/01/2004 4:15 PM FINDINGS: MAMMOGRAPHY: Breast composition: There are scattered areas of fibroglandular density. Mass: No suspicious mass. X Architectural distortion: None. Calcifications: No suspicious calcifications. Asymmetric density: None. Skin thickening: None. Axillary adenopathy: None. IMPRESSION: No mammographic evidence of malignancy. Annual screening is recommended unless otherwise clinically indicated. ASSESSMENT: BI-RADS Category 1: Negative
== END ==
PROVIDERS: PCP Family Medicine; Visit Provider Nurse Practitioner Obstetrics & Gynecology
DX: Z12.31 Encounter for screening mammogram for malignant neoplasm of breast (principal)
CPT/HCPCS: 77063; 77067

== ENCOUNTER → 2021-10-07 12:42 | Outpatient (CLI) | payer OTHER, SELFPAY ==
--- NOTE | 2021-10-07 12:58 | CA_ITS ---
FINAL REPORT TECHNIQUE: Color Doppler, duplex Doppler and harp scale sonography of the bilateral neck arterial vasculature was performed. Velocities were measured in the carotid arteries. Stenosis evaluation based on the validated velocity criteria. CLINICAL HISTORY: DARNELL FINDINGS: The peak systolic velocity of the right common carotid artery is 95 cm/s. The peak systolic velocity of the right internal carotid artery is 91 cm/s and end diastolic velocity 24 cm/s. The ICA/CCA ratio is 1.16. A mild amount of plaque is present. The right external carotid artery is patent. The right vertebral artery is patent with antegrade flow. The peak systolic velocity of the left common carotid artery is 91 cm/s. The peak systolic velocity of the left internal carotid artery is 106 cm/s and end diastolic velocity 39 cm/s. The ICA/CCA ratio is 1.16. A mild amount of plaque is present. The left external carotid artery is patent.The left vertebral artery is patent with antegrade flow. IMPRESSION: Less than 50% bilateral carotid stenosis. Bilateral patent vertebral arteries with antegrade flow. Reviewed, Interpreted and Dictated by Jassi Graves III, MD Transcribed by Radha Tejada Authenticated and [facility]
== END ==
PROVIDERS: PCP Family Medicine; Visit Provider Nurse Practitioner Family
DX: I65.23 Occlusion and stenosis of bilateral carotid arteries (principal); I25.10 Atherosclerotic heart disease of native coronary artery without angina pectoris; I11.9 Hypertensive heart disease without heart failure; E11.9 Type 2 diabetes mellitus without complications; E78.5 Hyperlipidemia, unspecified; Z79.84 Long term (current) use of oral hypoglycemic drugs
CPT/HCPCS: 93880

== ENCOUNTER → 2021-10-22 08:04 | Outpatient (CLI) | payer OTHER, SELFPAY ==
[2021-10-22 14:27] LABS: Basophils # 0.2 K/mm3 (0-0.2); Basophils % 3.7 % (0.1-2.0); Eosinophils # 0.2 K/mm3 (0.0-0.4); Eosinophils % 3.5 % (0.1-12.0); Hematocrit 37.2 % (37.0-47.0); Hemoglobin 11.9 g/dL (12.2-16.2); Lymphocytes % 33.5 % (10-50); Mean Corpuscular Hemoglobin 29.6 pg (27.0-31.2); Mean Corpuscular Volume 92.6 fl (81-99); Mean Platelet Volume 9.6 fl (7.4-10.4); Monocytes # 0.3 K/mm3 (0.1-1.0); Monocytes % 5.6 % (1.7-9.3); Neutrophils # 3.2 K/mm3 (1.8-7.8); Neutrophils % 53.7 % (37.0-80.0); Platelet Count 451 K/mm3 (142-424); Red Blood Count 4.01 M/mm3 (4.20-5.40); Red Cell Distribution Width 13.9 % (11.5-17.5)
[2021-10-22 15:10] LABS: Alanine Aminotransferase 23 U/L (12-78); Albumin Level 3.7 g/dl (3.5-5.0); Alkaline Phosphatase 74 U/L (38-126); Anion Gap 10.9 mEq/L (5-15); Aspartate Amino Transferase 24 U/L (14-36); Bilirubin,Indirect 0.2 mg/dL (0.0-0.9); Bilirubin,Total 0.2 mg/dl (0.2-1.3); Bilirubin,Unconjugated 0.4 mg/dL (0.0-1.1); Blood Urea Nitrogen 13 mg/dl (7-17); Calcium 9.5 mg/dl (8.4-10.2); Carbon Dioxide 31 mmol/L (22.0-30.0); Chloride 98 mmol/L (98-107); Chol/HDL Ratio 3.1 (1-3.5); Cholesterol 144 mg/dl (140-200); Estimated Glomerular Filt Rate 87 ml/min (>60); GFR (African American) 105 ML/MIN (>60); Glucose 106 mg/dl (74-100); HDL Cholesterol 47 mg/dl (40-60); Magnesium 1.6 mg/dl (1.6-2.3); Potassium 3.9 mmoL/L (3.5-5.1); Sodium 136 mmol/L (136-145); Triglycerides 199 mg/dl (30-150); VLDL Cholesterol 40 mg/dL (0-40)
[2021-10-22 15:20] LABS: Direct LDL Cholesterol 66.19 mg/dL (100-129)
[2021-10-22 15:24] LABS: Free T4 (Free Thyroxine) 1.32 ng/dl (0.78-2.19)
[2021-10-22 15:38] LABS: Thyroid Stimulating Hormone 2.56 uIU/mL (0.465-4.68)
== END ==
PROVIDERS: Visit Provider Nurse Practitioner Family
DX: I25.10 Atherosclerotic heart disease of native coronary artery without angina pectoris (principal); I11.9 Hypertensive heart disease without heart failure; E11.9 Type 2 diabetes mellitus without complications; E78.5 Hyperlipidemia, unspecified; I65.23 Occlusion and stenosis of bilateral carotid arteries; Z79.84 Long term (current) use of oral hypoglycemic drugs
CPT/HCPCS: 36415; 80048; 80061; 80076; 83735; 84439; 84443; 85025

== ENCOUNTER → 2021-10-23 15:51 | Outpatient (CLI) | payer OTHER, SELFPAY ==
--- NOTE | 2021-10-23 17:55 | CT_ITS ---
PROCEDURE INFORMATION: Exam: CT Abdomen And Pelvis Without Contrast Exam date and time: 10/23/2021 6:04 PM Age: 56 years old Clinical indication: Abdominal pain; Localized; Left lower quadrant (llq); Additional info: Llq pain TECHNIQUE: Imaging protocol: Computed tomography of the abdomen and pelvis without contrast. Radiation optimization: All CT scans at this facility use at least one of these dose optimization techniques: automated exposure control; mA and/or kV adjustment per patient size (includes targeted exams where dose is matched to clinical indication); or iterative reconstruction. COMPARISON: CT ABDOMEN PELVIS W CON 09/02/2021 11:35 AM FINDINGS: Liver: Normal. No mass. Gallbladder and bile ducts: Cholecystectomy. Pancreas: Stable mild fullness of the mid body of the pancreas with a 2.4 cm masslike area seen in this region. Spleen: Normal. No splenomegaly. Adrenal glands: Normal. No mass. Kidneys and ureters: Normal. No hydronephrosis. Stomach and bowel: Unremarkable. No obstruction. No mucosal thickening. Appendix: No evidence of appendicitis. Intraperitoneal space: Unremarkable. No free air. No significant fluid collection. Vasculature: Unremarkable. No abdominal aortic aneurysm. Lymph nodes: Unremarkable. No enlarged lymph nodes. Urinary bladder: Unremarkable as visualized. Reproductive: 6.8 cm left ovarian cyst unchanged from previous study. Hysterectomy. Bones/joints: Unremarkable. No acute fracture. Soft tissues: Unremarkable. IMPRESSION: 1. 6.8 cm left ovarian cyst unchanged from previous study. 2. Stable mild fullness of the mid body of the pancreas with a 2.4 cm masslike area seen in this region. Outpatient nonemergent MRI can be obtained to further characterize these findings.
== END ==
PROVIDERS: PCP Family Medicine; Visit Provider Physician Assistant
DX: R10.32 Left lower quadrant pain (principal)
CPT/HCPCS: 74176

== ENCOUNTER → 2021-10-24 10:13 | Outpatient (CLI) | payer OTHER, SELFPAY ==
[2021-10-24 11:27] LABS: Chloride 98 mmol/L (98-107); Potassium 4.4 mmoL/L (3.5-5.1); Sodium 137 mmol/L (136-145)
[2021-10-24 11:29] LABS: Amylase 70 U/L (30-110); Blood Urea Nitrogen 9 mg/dl (7-17); Estimated Glomerular Filt Rate 87 ml/min (>60); GFR (African American) 105 ML/MIN (>60)
[2021-10-24 11:30] LABS: Alanine Aminotransferase 26 U/L (12-78); Albumin Level 4.3 g/dl (3.5-5.0); Alkaline Phosphatase 73 U/L (38-126); Anion Gap 11.4 mEq/L (5-15); Aspartate Amino Transferase 27 U/L (14-36); Bilirubin,Total 0.4 mg/dl (0.2-1.3); Calcium 9.9 mg/dl (8.4-10.2); Carbon Dioxide 32 mmol/L (22.0-30.0); Globulin 2.1 g/dL (1.3-3.2); Glucose 88 mg/dl (74-100); Lipase 68 U/L (23-300); Total Protein,Serum 6.4 g/dl (6.3-8.2)
== END ==
PROVIDERS: PCP Physician Assistant; Visit Provider Physician Assistant
DX: R10.32 Left lower quadrant pain (principal)
CPT/HCPCS: 36415; 80053; 82150; 83690

== ENCOUNTER → 2021-10-30 09:01 | Outpatient (CLI) | payer OTHER, SELFPAY ==
--- NOTE | 2021-10-30 09:05 | MR_ITS ---
FINAL REPORT CLINICAL HISTORY: PANCREATIC MASS ABNORMAL CT SCAN INTERMITTENT ABDOMEN PAIN CHRONIC DIARRHEA 18 ML PROHANCE GVIEN COMPARISON: Abdomen and pelvis CT dated September 02, 2021 FINDINGS: Multiplanar MR imaging of the abdomen was performed without and with contrast. Images of the liver reveal no evidence of mass. There is no evidence of biliary ductal dilatation. There has been cholecystectomy. No pancreatic mass is identified. No other mass or adenopathy is identified. No abnormal fluid collection is seen. No abnormal contrast enhancement is seen on the postcontrast images. IMPRESSION: No mass or abnormal contrast enhancement identified. Reviewed, Interpreted and Dictated by Jassi Graves III, MD Transcribed by Efren Calderón Authenticated and [facility]
== END ==
PROVIDERS: PCP Family Medicine; Visit Provider Physician Assistant
DX: K86.89 Other specified diseases of pancreas (principal)
CPT/HCPCS: 74183; 76376; A9576

== ENCOUNTER → 2021-11-27 12:07 | Outpatient (CLI) | payer OTHER, SELFPAY | PROVIDERS: PCP Family Medicine; Visit Provider Nurse Practitioner Family | DX: Z20.822 Contact with and (suspected) exposure to COVID-19 (principal) | CPT/HCPCS: C9803; U0003; U0005 ==

== ENCOUNTER → 2021-12-02 13:04 | Outpatient (CLI) | payer OTHER, SELFPAY ==
--- NOTE | 2021-12-02 13:54 | CA_ITS ---
APPROVED REPORT EXAM: Comprehensive 2D, Doppler, and color-flow Echocardiogram Warehouse Order Puller: Leisa Walker, LOBITO, RVS Ht: 5 ft 5 in Wt: 203lbs BSA: 1.99 BP: 125/85 mmHg Indications: Pre-op,HTN,HLD,Palpitations,CAD 2D Dimensions Aortic Root 2.77 cm LA Volume 36.40 mL Left Atrium 3.35 cm LA Volume Index 18.838002 mL/m2 (M/F) 16-34 LVOT 1.82 cm (M/F) 1.5-2.5 M-Mode Dimensions RVDd 2.49 cm (0.9-2.6) LA Diam 4.20 cm (1.9-4.0) LVDd 4.21 cm (3.5-5.7) Ao Diam 2.58 cm (2.0-3.7) LVDs 2.91 cm (3.5-5.7) IVSd 0.88 cm (0.6-1.1) PWd 0.92 cm (0.6-1.1) EF (Teich) 56.20% EPSs 0.32 cm FS 29.00% EDV (Teich) 74.20 mL TAPSE 1.11 (<1.7) ESV (Teich) 32.50 mL LV Diastology E Decel Time 193.00 (160-240 msec) E/A Ratio 0.84 MED E' 7.00 (< 7 cm/sec) MED A' 8.20 cm/s E'/MED E' Ratio 8.21 (>14) LAT E' 7.80 (<10 cm/sec) LAT A' 8.90 cm/s E/LAT E' Ratio 7.37 (>14) Aortic Valve LVOT Max 103.00 (70-110 cm/s) LVOT VTI 19.89 cm AoV Peak Waldemar. 148.00 (50-130 cm/s) AO Peak GR. 8.80 mmHg AO Mean GR. 4.80 (<5 mmHg) AO VTI 27.77 (18-25 cm) LEW (VTI) 1.86 (2.5-4.5 cm2) Mitral Valve MV A Velocity 69.00 (40-130 cm/s) E/A Ratio 0.84 MV Decel. Time 193.00 (160-240 ms) MV Mean Gr. 1.10 (<2mmHg) MV PHT 57.00 ms Pulmonary Valve PV Peak Velocity 88.00 (50-150 cm/s) Left Ventricle Technically difficult study because of the patient factors and poor acoustic windows. Left atrium is mildly enlarged, left ventricle is normal size mild concentric left ventricular hypertrophy, estimated ejection fraction 45%, there is moderate hypokinesis involving the basal septum and inferior basal wall. Grade 1 diastolic dysfunction seen without tissue Doppler evidence of reduced left atrial pressure. Right Ventricle Right atrium and right ventricle are normal size and contractility. Aortic Valve Aortic valve is minimally thickened and fibrosed there is no aortic stenosis or aortic insufficiency. Mitral Valve Mitral valve is grossly normal, there is mild mitral regurgitation. Tricuspid Valve Tricuspid valve is grossly normal, there is mild tricuspid regurgitation, tricuspid regurgitation jet velocity is inadequate for calculation of the right ventricular systolic pressure. Pulmonic Valve Pulmonic valve is poorly visualized. Great Vessels Aortic root is normal size. Inferior vena cava is poorly visualized Pericardium No significant pericardial effusion noted. Conclusion 1. Mildly enlarged left ring, normal left ventricular size, estimated ejection fraction 45% with segmental wall motion abnormality described above, grade 1 diastolic dysfunction seen without tissue Doppler evidence of raise left atrial pressure. 2. Mild mitral and tricuspid regurgitation. 3. No significant pericardial effusion. 4. Inferior vena cava is poorly visualized. Electronically signed by : Liam Villaseñor MD 12/03/2021 06:38:48
[2021-12-02 14:04] LABS: Basophils # 0.1 K/mm3 (0-0.2); Basophils % 1.5 % (0.1-2.0); Eosinophils # 0.2 K/mm3 (0.0-0.4); Eosinophils % 1.9 % (0.1-12.0); Hematocrit 39.7 % (37.0-47.0); Hemoglobin 12.6 g/dL (12.2-16.2); Lymphocytes # 2.8 K/mm3 (0.7-4.5); Mean Corpuscular HGB Conc 31.7 g/dL (31.8-35.4); Mean Corpuscular Hemoglobin 28.9 pg (27.0-31.2); Mean Corpuscular Volume 91.4 fl (81-99); Mean Platelet Volume 7.9 fl (7.4-10.4); Monocytes # 0.5 K/mm3 (0.1-1.0); Monocytes % 5.6 % (1.7-9.3); Neutrophils # 5.8 K/mm3 (1.8-7.8); Platelet Count 511 K/mm3 (142-424); Red Blood Count 4.34 M/mm3 (4.20-5.40); Red Cell Distribution Width 14.1 % (11.5-17.5); White Blood Count 9.4 K/mm3 (4.8-10.8)
[2021-12-02 14:30] LABS: Anion Gap 11.8 mEq/L (5-15); Blood Urea Nitrogen 11 mg/dl (7-17); Calcium 10.2 mg/dl (8.4-10.2); Carbon Dioxide 31 mmol/L (22.0-30.0); Chloride 99 mmol/L (98-107); Estimated Glomerular Filt Rate 87 ml/min (>60); GFR (African American) 105 ML/MIN (>60); Glucose 96 mg/dl (74-100); Potassium 3.8 mmoL/L (3.5-5.1); Sodium 138 mmol/L (136-145)
== END ==
PROVIDERS: PCP Family Medicine; Visit Provider Nurse Practitioner Obstetrics & Gynecology
DX: Z01.818 Encounter for other preprocedural examination (principal); Z20.822 Contact with and (suspected) exposure to COVID-19; N83.202 Unspecified ovarian cyst, left side; N92.0 Excessive and frequent menstruation with regular cycle
CPT/HCPCS: 36415; 80048; 85025; 93306; C9803; U0003; U0005

== ENCOUNTER 2021-12-04 06:13 | Day surgery (SDC) | payer OTHER, SELFPAY ==
[2021-11-28 13:50] VITALS: BMI 32.4
[2021-12-04] VITALS (9 sets, daily range): BP systolic 106–150; BP diastolic 64–96; PULSE 83–97; RESP 14–18; TEMP 36.1–43; O2SAT 97–99
[2021-12-04 06:48] LABS: POC Glucose,Bedside 105 (70-110)
[2021-12-04 08:59] LABS: POC Glucose,Bedside 120 (70-110)
--- NOTE | 2021-12-04 09:03 | HMH.OPNOTE ---
Date of procedure: 12/04/21 Pre-op Diagnosis:: Left ovarian cyst, left lower quadrant pain Post-op Diagnosis:: Left ovarian cyst, left lower quadrant pain Procedure performed:: Laparoscopic left ovarian cystectomy, left partial oophorectomy Surgeon:: Serafin Ivan MD HOSPITALIST NOCTURNIST PHYSICIAN:: Other (Dev Valencia) Anesthesia: GETA Estimated blood loss (mL): 25 Clinical Note:: She is a 56-year-old lady who complains of left lower quadrant pain. An ultrasound showed that she had a 6.6 cm left ovarian cyst CA125 was normal. Since she had increasing pain on the left side we elected to perform a laparoscopic left ovarian cystectomy. The risks and benefits of surgery were discussed with the patient prior to surgery. Operative findings:: She had an anteverted small uterus. There were 2 separate fibroids on the uterus. There was a fibroid approximately a centimeter in size on the left cornua and another subserosal fibroid approximately 8 mm in size on the posterior aspect of the uterus. The left ovary was enlarged with a 7 cm simple cyst that was filled with clear serous fluid. The right ovary was normal and atrophic. Both tubes appeared normal. The rest of the pelvis appeared normal. Operative note:: She was taken the operating room where general anesthesia was found to be adequate. She was prepped and draped in normal sterile fashion in the semilithotomy position. A weighted speculum is placed in the vagina and the anterior lip of the cervix was grasped with a tenaculum. The uterus was quite small and anteverted and the os was small so I elected not to place a uterine manipulator. I left the tenaculum on the cervix. I changed gloves and then injected 10 cc of half percent ropivacaine around the umbilicus. I made a small incision and inserted a Veress needle into the abdominal cavity. The abdominal cavity was then insufflated with carbon oxide gas to a pressure of 20 mmHg. I then inserted an 11 mm trocar under direct vision. I injected through and through at the pubic hairline and made a small incision. I then inserted a 5 mm trocar under direct vision. I then injected through and through the left lower quadrant lateral to the inferior epigastric arteries and then placed a 5 mm trocar here under direct vision. The findings were as previously dictated. I then grasped the left ovary and using the active blade of the harmonic scalpel I drilled into the ovarian cyst. I then extended this incision further. The fluid then drained out of the cyst. I then was able to open up the ovary further and stripped out the ovarian cyst wall. There was a tear in the ovarian wall and I elected to remove most of the left ovary with harmonic scalpel. I then inserted an Endo Catch bag through the 11 mm trocar site and placed the ovary and cyst wall in the bag. It was removed through the 11 mm trocar site. We then inspected the pelvis and the remaining base of the left ovary for hemostasis. I then rinsed the pelvis with saline. After assuring hemostasis I then wrapped the left ovarian stop and left tube in Surgicel. The pelvis was completely hemostatic and we then injected approximate 25 cc of ropivacaine into the pelvis. The gas was letter the abdomen and once again hemostasis was assured. We then reinsufflated the abdominal cavity and checked for hemostasis. The secondary trochars were removed under direct vision and the gas was let out of the abdomen. Primary trocar and camera were removed together. No bowel was seen to follow. The primary trocar site was then closed deeply with interrupted 2-0 Vicryl suture after grasping the fascia with a tenaculum. The subcutaneous tissues were then closed with a single 2-0 Vicryl suture. The skin was closed with interrupted subcuticular 4-0 Monocryl sutures. The 5 mm trocar sites were closed with subcuticular 4 Monocryl sutures. Sterile dressings were applied. She tolerated the procedure well and was taken to the [facility]
--- NOTE | 2021-12-04 09:49 | SUR.PHASEI ---
0855- blood sugar at this time is 120. roger Em notfied 0919- detailed report given to vandana guzmán, pt transported to Post op by ramirez at this time in stable condition.
--- NOTE | 2021-12-06 10:49 | HMH.ANESCL ---
[facility] Anesthesia Checklist - Patient Identification Patient Identification: Arm Band - Structural Data Admitted From: Home Planned Operative Procedure/s: laproscopic LSO Consent for Planned Operative Procedure(s) Verified: Yes Verified Documents: Surgical Consent - NPO Status Verified Time NPO: 00:00 - Additional verifications Anesthesia Reactions: No Hx Blood Transfusions: No Blood Transfusion Reaction: No - Airway Assessment C-Spine Mobility Assessed: Yes TMJ Mobility Assessed: Yes Dentition: Good Dentition - Neurological Assessment Level of Consciousness: Awake, Alert, Appropriate Hx Seizures: No Numbness or tingling in extremities: No - Anesthesia Plan Anesthesia Risk discussed: Yes ASA Class: II Anesthesia Type: General [facility] History Medical History: Reports:: Anxiety, Coronary Artery Disease, Diabetes Mellitus Type 2, Gastroesophageal Reflux Disease(GERD), Hyperlipidemia, Hypertension, Palpitations Denies:: Cancer, Diabetes Mellitus Type 1, Internal Pacemaker, MRSA, Seizures *Have you ever received a pneumonia vaccine?: No *Have you received a flu vaccine this season?: No Other Medical History: Reports: Thyroid Disease. Denies: Blood Transfusion Reaction Anesthesia experience/problems:: no problems Laterality Cases: Bilateral: Other Other Surgeries: Yes: Angioplasty, Cholecystectomy, Colonoscopy, Coronary Stent. No: Pacemaker Amputation: No Fractures: No - *Social History Last grade of school completed: Some college Smoking Status: Former smoker Tobacco Type: cigarettes Alcohol Intake: never Alcohol Intake Frequency:: other Substance Use Type: denies use *Occupational Status:: employed Housing: house Household Members: spouse *Travel in the last 8 weeks: Inside the [place] - Psychiatric History Pschychiatric History:: Reports:: Anxiety Family Hx:: Coronary Artery Disease, Diabetes, Heart Attack, Hypertension
--- NOTE | 2021-12-06 12:57 | HMH.ANESI ---
[facility] Anesthesia Record Part I Intake, IV Amount: 900 Estimated blood loss (mL): 25 Urine output (mL): 0 Blood Products used (#): none Blood Pressure: 106/64 SaO2: 98 Pulse Rate: 98 Respiratory Rate: 18 Temperature: 97.4 F Patient is:: Awake, Stable
[2021-12-06 12:59] VITALS: BP 106/64; PULSE 98; RESP 18; TEMP 36.3; O2SAT 98
--- NOTE | 2021-12-06 12:59 | HMH.ANESII ---
[facility] Anesthesia Record Part II Discharge Time: 09:20 Destination: Surgical Day Care (OP Surgery) PACU nurse assessment reviewed?: Yes Patient Condition:: Good Anesthesia Complications:: None Swallowing reflex intact?: Yes Cyanosis?: No Blood Pressure: 141/83 Pulse Rate: 97 Temperature: 97.5 F Mental Status: Alert & Oriented Pain level:: 0 Nausea and/or vomitting:: None Intake, IV Amount: 0
[2021-12-06 13:00] VITALS: BP 141/83; PULSE 97; TEMP 36.4
== END 2021-12-04 10:00 | disposition home or self-care (01) ==
LOC: OR 06:15
PROVIDERS: PCP Family Medicine; Visit Provider Nurse Practitioner Obstetrics & Gynecology
PROC: 0TTB4ZZ Resection of Bladder, Percutaneous Endoscopic Approach (ICD-10-PCS; CPT 51999; principal; 2021-12-04 07:30)
DX: N83.202 Unspecified ovarian cyst, left side (principal); R10.32 Left lower quadrant pain; K21.9 Gastro-esophageal reflux disease without esophagitis; E11.9 Type 2 diabetes mellitus without complications; I10 Essential (primary) hypertension; Z79.899 Other long term (current) drug therapy
CPT/HCPCS: 58662; 58661; 82962; 96374; J2405

== ENCOUNTER → 2022-02-12 11:25 | Outpatient (CLI) | payer OTHER, SELFPAY ==
[2022-02-12 12:25] LABS: Hemoglobin A1C 5.8 % (4.0-6.0)
[2022-02-12 12:46] LABS: Chloride 96 mmol/L (98-107); Potassium 4.2 mmoL/L (3.5-5.1); Sodium 141 mmol/L (136-145)
[2022-02-12 12:48] LABS: Alanine Aminotransferase 15 U/L (12-78); Alkaline Phosphatase 90 U/L (38-126); Anion Gap 17.2 mEq/L (5-15); Aspartate Amino Transferase 18 U/L (14-36); Bilirubin,Total 0.4 mg/dl (0.2-1.3); Blood Urea Nitrogen 19 mg/dl (7-17); Carbon Dioxide 32 mmol/L (22.0-30.0); Estimated Glomerular Filt Rate 87 ml/min (>60); GFR (African American) 105 ML/MIN (>60)
[2022-02-12 12:49] LABS: Albumin Level 4.6 g/dl (3.5-5.0); Albumin/Globulin Ratio 2.1 (1.1-1.8); Calcium 9.9 mg/dl (8.4-10.2); Chol/HDL Ratio 2.5 (1-3.5); Cholesterol 141 mg/dl (140-200); Globulin 2.2 g/dL (1.3-3.2); Glucose 81 mg/dl (74-100); HDL Cholesterol 56 mg/dl (40-60); Total Protein,Serum 6.8 g/dl (6.3-8.2); Triglycerides 167 mg/dl (30-150); VLDL Cholesterol 33 mg/dL (0-40)
[2022-02-12 13:00] LABS: Direct LDL Cholesterol 57.21 mg/dL (100-129)
[2022-02-12 13:19] LABS: Thyroid Stimulating Hormone 2.26 uIU/mL (0.465-4.68)
== END ==
PROVIDERS: PCP Family Medicine; Visit Provider Family Medicine
DX: E11.9 Type 2 diabetes mellitus without complications (principal); E03.9 Hypothyroidism, unspecified; E78.5 Hyperlipidemia, unspecified; I10 Essential (primary) hypertension; Z79.84 Long term (current) use of oral hypoglycemic drugs
CPT/HCPCS: 36415; 80053; 80061; 83036; 84443

== ENCOUNTER → 2022-05-16 12:30 | Outpatient (CLI) | payer OTHER, SELFPAY ==
[2022-05-20 16:39] LABS: Pancreatic Elastase, Fecal >500 (>200)
== END ==
PROVIDERS: PCP Family Medicine; Visit Provider Internal Medicine Gastroenterology
DX: R14.0 Abdominal distension (gaseous) (principal); R19.4 Change in bowel habit
CPT/HCPCS: 82656

== ENCOUNTER 2022-06-09 10:02 | Emergency (ER) | payer OTHER, SELFPAY ==
[2022-06-09 10:52] VITALS: BP 0/0; PULSE 0; RESP 0; TEMP -17.7; TEMP 0
== END 2022-06-09 10:53 | disposition left against medical advice (07) ==
LOC: UTC 10:04
PROVIDERS: Emergency Provider Nurse Practitioner; PCP Family Medicine
DX: Z53.21 Procedure and treatment not carried out due to patient leaving prior to being seen by health care provider (principal)

== ENCOUNTER → 2022-08-25 06:22 | Outpatient (CLI) | payer OTHER, SELFPAY ==
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
--- NOTE | 2022-08-25 | CT_ITS ---
FINAL REPORT TECHNIQUE: Axial CT images were obtained through the sinuses/facial bones. Coronal reformats were obtained. This study was performed with techniques to keep radiation doses as low as reasonably achievable (ALARA). Individualized dose reduction techniques using automated exposure control or adjustment of mA and/or kV according to the patient's size were employed. CLINICAL HISTORY: .chronic sinusitis FINDINGS: There is mucoperiosteal thickening with an air-fluid level in the left maxillary sinus. The left ostiomeatal unit is obstructed. The right ostiomeatal unit is patent. The nasal septum is not significantly deviated. No fractures are identified. IMPRESSION: Left maxillary sinusitis with an air-fluid level and occlusion of the left ostiomeatal unit. Reviewed, Interpreted and Dictated by Lenny Price MD Transcribed by Efren Calderón Authenticated and [facility]
== END ==
PROVIDERS: PCP Family Medicine; Visit Provider Physician Assistant
DX: S06.0X0A Concussion without loss of consciousness, initial encounter (principal); J32.0 Chronic maxillary sinusitis
CPT/HCPCS: 70450; 70486

== ENCOUNTER → 2022-11-21 12:34 | Outpatient (CLI) | payer OTHER, SELFPAY ==
[2022-11-21 13:36] LABS: Blood Urea Nitrogen 15 mg/dl (7-17); Estimated Glomerular Filt Rate 74 ml/min (>60); GFR (African American) 89 ML/MIN (>60)
--- NOTE | 2022-11-21 13:39 | CT_ITS ---
FINAL REPORT TECHNIQUE: Axial images through the abdomen and pelvis were performed without contrast.This study was performed with techniques to keep radiation doses as low as reasonably achievable, (ALARA). Individualized dose reduction techniques using automated exposure control or adjustment of mA and/or kV according to the patient's size were employed. CLINICAL HISTORY: EPIGASTRIC ABD PAIN COMPARISON: 10/23/2021 FINDINGS: Exam is limited without intravenous contrast. ABDOMEN: The lung bases are clear. The heart size is normal. Limited images of the liver are unremarkable. Patient is status post cholecystectomy. The spleen is normal. Previously described fullness in the mid pancreas is stable. No adrenal mass is identified. The aorta is normal in caliber. There is no significant free fluid or adenopathy. There is no nephrolithiasis. There is no hydronephrosis. Bowel is unremarkable. PELVIS: The appendix is normal. Uterus and ovaries are unremarkable. The urinary bladder is unremarkable. There is no significant free fluid or adenopathy. IMPRESSION: No acute process of the abdomen or pelvis. Reviewed, Interpreted and Dictated by Geetha Ibarra MD Transcribed by Cinthya Aguilar Authenticated and [facility]
== END ==
PROVIDERS: PCP Family Medicine; Visit Provider Physician Assistant
DX: R10.13 Epigastric pain (principal)
CPT/HCPCS: 36415; 74176; 82565; 84520

== ENCOUNTER → 2022-12-16 10:33 | Outpatient (CLI) | payer MEDICAID, SELFPAY ==
[2022-12-16 11:13] LABS: Basophils # 0.1 K/mm3 (0-0.2); Eosinophils # 0.1 K/mm3 (0.0-0.4); Eosinophils % 0.9 % (0.1-12.0); Hematocrit 40.9 % (37.0-47.0); Hemoglobin 13.4 g/dL (12.2-16.2); Lymphocytes # 2.5 K/mm3 (0.7-4.5); Lymphocytes % 29.6 % (10-50); Mean Corpuscular HGB Conc 32.8 g/dL (31.8-35.4); Mean Corpuscular Hemoglobin 28.4 pg (27.0-31.2); Mean Corpuscular Volume 86.6 fl (81-99); Mean Platelet Volume 7.8 fl (7.4-10.4); Monocytes # 0.5 K/mm3 (0.1-1.0); Neutrophils # 5.2 K/mm3 (1.8-7.8); Neutrophils % 62.5 % (37.0-80.0); Platelet Count 548 K/mm3 (142-424); Red Blood Count 4.73 M/mm3 (4.20-5.40); Red Cell Distribution Width 15.6 % (11.5-17.5); White Blood Count 8.3 K/mm3 (4.8-10.8)
[2022-12-16 11:40] LABS: Hemoglobin A1C 6.2 % (4.0-6.0)
[2022-12-16 12:20] LABS: Alanine Aminotransferase 30 U/L (12-78); Albumin Level 4.8 g/dl (3.5-5.0); Alkaline Phosphatase 84 U/L (38-126); Aspartate Amino Transferase 26 U/L (14-36); Bilirubin,Indirect 0.4 mg/dL (0.0-0.9); Bilirubin,Total 0.4 mg/dl (0.2-1.3); Bilirubin,Unconjugated 0.5 mg/dL (0.0-1.1); Blood Urea Nitrogen 21 mg/dl (7-17); Calcium 10.2 mg/dl (8.4-10.2); Carbon Dioxide 26 mmol/L (22.0-30.0); Chloride 95 mmol/L (98-107); Chol/HDL Ratio 2.5 (1-3.5); Cholesterol 142 mg/dl (140-200); Estimated Glomerular Filt Rate 65 ml/min (>60); GFR (African American) 78 ML/MIN (>60); Glucose 107 mg/dl (74-100); HDL Cholesterol 56 mg/dl (40-60); Magnesium 1.6 mg/dl (1.6-2.3); Sodium 137 mmol/L (136-145); Total Protein,Serum 7.2 g/dl (6.3-8.2); Triglycerides 159 mg/dl (30-150); VLDL Cholesterol 32 mg/dL (0-40)
[2022-12-16 12:31] LABS: Direct LDL Cholesterol 59.81 mg/dL (100-129)
[2022-12-16 12:36] LABS: Free T4 (Free Thyroxine) 1.45 ng/dl (0.78-2.19)
[2022-12-16 12:52] LABS: Thyroid Stimulating Hormone 3.73 uIU/mL (0.465-4.68)
== END ==
PROVIDERS: PCP Family Medicine; Visit Provider Nurse Practitioner
DX: R00.0 Tachycardia, unspecified (principal); E78.2 Mixed hyperlipidemia; E11.9 Type 2 diabetes mellitus without complications; Z79.84 Long term (current) use of oral hypoglycemic drugs; Z79.899 Other long term (current) drug therapy
CPT/HCPCS: 36415; 80048; 80061; 80076; 83036; 83735; 84439; 84443; 85025

== ENCOUNTER 2023-01-15 10:00 | Outpatient (RCR) | payer OTHER, SELFPAY | END 2023-02-26 10:02 | disposition home or self-care (01) | LOC: PT 10:00 | PROVIDERS: PCP Family Medicine; Visit Provider Podiatrist | DX: M72.2 Plantar fascial fibromatosis (principal); M79.671 Pain in right foot; M79.672 Pain in left foot | CPT/HCPCS: 97010; 97014; 97035; 97110; 97140; 97163; G0283 ==

== ENCOUNTER → 2023-04-17 06:54 | Outpatient (CLI) | payer OTHER, SELFPAY ==
--- NOTE | 2023-04-17 | CA_ITS ---
APPROVED REPORT Exam: Pharmacologic Technologist: Linda Robertson, Ht: 5 ft 5 in Wt: 190 lbs BSA: 1.94 m2 HR: 83 bpm BP: 114/83 mmHg Rhythm: NSR, OLD INFERIOR TN, CANNOT R/O OLD ANT. TN, NS ST ABN IN LEADS I, aVL Medical History Medical History: Hyperlipidemia, Diabetic Medications: Levothyroxine,,,,, Aspirin,,,,, Metformin,,,,, RoSUVASTATIN,,,,, MeDroxyprogesterone,,,,, EMpagliflozin,,,,, Diclofenac Sodium,,,,, Furosemide,,,,, Esomeprazole magnesium,,,,, Lisinopril HYDROCHLOROTHIAZIDE,,,,, Allergies: SULFA, ATORVSTATIN, SIMVASTATIN, DIPHENHYDRAMINE, PEANUTS, BEE VENOM, PENICILLIN Cardiac Risk Factors: Hyperlipidemia, Diabetes , Smoking Stress Test Details Test: LEXISCAN HR Resting HR: 85 bpm Max Heart Rate (APMHR): 163 bpm Max HR Achieved: 106 bpm Target HR (85% APMHR): 139 bpm % of APMHR: 65 Recovery HR: 88 bpm BP Resting BP: 114/83 mmHg Max BP: 146/77 mmHg Recovery BP: 117.0/79.0 mmHg ECG Resting ECG: Normal sinus rhythm, possible old inferior TN, nonspecific ST changes Stress ECG: No significant ST changes Arrhythmia: PVCs Clinical Exercise duration: 04:05 min Highest Stage Achieved: Stress ECG Conclusion PT HAD MILD SOA AND MILD HEAD DISCOMFORT NO CP FREQUENT ISOLATED PVCS NO SIGNIFICANT ST CHANGES CONCLUSION: UNREMARKABLE LEXISCAN STRESS MYOVIEW IMAGES REPORTED SEPARATELY Test Summary REST 04:43 . . 85 . 114/ 83 . . Stage 1 01:00 . . 106 . . . . Stage 2 01:00 . . 88 . . . . Stage 3 01:00 . . 93 . 123/ 82 . . Stage 4 01:00 . . 88 . 146/ 77 . . Stage 4 01:05 . . 93 . 146/ 77 . Stop exercise at 04:05 RECOVERY 01:00 . . 82 . . . . RECOVERY 02:00 . . 87 . 119/ 79 . . RECOVERY 03:00 . . 81 . 144/ 79 . . RECOVERY 04:00 . . 88 . 117/ 79 . . Electronically signed by : Nazanin Tidwell MD 04/21/2023 23:36:47
--- NOTE | 2023-04-17 06:55 | CA_ITS ---
APPROVED REPORT EXAM: Comprehensive 2D, Doppler, and color-flow Echocardiogram Lens Polisher: Kae Berger CRT Ht: 5 ft 5 in Wt: 190lbs BSA: 1.94 BP: 123/88 mmHg Indications: Diabetes, CAD, Hyperlipidemia, Hypertension/HDD 2D Dimensions Left Atrium 4.00 cm LA Volume 25.70 mL LVOT 1.90 cm (M/F) 1.5-2.5 LA Volume Index 13.20 mL/m2 (M/F) 16-34 EF AP4 46.70 % GL Strain -13.7 % M-Mode Dimensions RVDd 2.71 cm (0.9-2.6) LVDd 4.36 cm (3.5-5.7) Ao Diam 3.26 cm (2.0-3.7) LVDs 3.00 cm (3.5-5.7) IVSd 1.79 cm (0.6-1.1) PWd 0.86 cm (0.6-1.1) EF (Teich) 59.20% FS 31.20% EDV (Teich) 85.80 mL ESV (Teich) 35.00 mL LV Diastology E Decel Time 150 (160-240 msec) E/A Ratio 0.93 MED E' 10.2 (>= 7 cm/sec) MED A' 8.90 cm/s E'/MED E' Ratio 7.28 (<= 14) LAT E' 9.4 (>= 10 cm/sec) LAT A' 9.70 cm/s E/LAT E' Ratio 7.90 (<= 14) Mitral Valve MV E Max Waldemar. 74.0 (40-130 cm/s) MV A Velocity 80.0 (40-130 cm/s) E/A Ratio 0.93 MV Decel. Time 150 (160-240 ms) Tricuspid Valve TR P. Velocity 361.00 cm/s RAP Estimate 10.00 mmHg RVSP 62.30 mmHg Left Ventricle The left ventricle is normal size. The left ventricular systolic function is mildly reduced. There is increased LV wall thickness. There is mild global hypokinesis present. There is moderate hypokinesis of the basal anterolateral LV wall. The left ventricular diastolic function is normal. LVEF is 45-50%. Right Ventricle Right ventricle is mildly dilated. The right ventricular systolic function is normal. Atria The left atrium size is normal. The right atrium size is normal. There is no Doppler evidence of interatrial shunt. Aortic Valve The aortic valve is mildly thickened. There is no aortic valvular stenosis. No aortic regurgitation is present. Mitral Valve The mitral valve is normal in structure. No evidence of mitral valve stenosis. Trace mitral regurgitation. Tricuspid Valve The tricuspid valve leaflets are thin and pliable. Trace tricuspid regurgitation. There is insufficient TR jet to estimate RVSP. Pulmonic Valve The pulmonary valve is normal in structure. Trace pulmonic regurgitation. Great Vessels The aortic root is normal in size. The ascending aorta is normal in size. IVC is normal in size and collapses >50% with inspiration. Pericardium There is no pericardial effusion. Other Information Study Quality: Technically Difficult Conclusion Technically difficult study due to poor accoustic windows. Mild reduction in LV systolic function (LVEF 45-50%). Moderate hypokinesis of the basal anterolateral LV wall. Mild RV dilation. No significant valvular stenosis or regurgitation. Electronically signed by : Nazanin Tidwell MD 04/21/2023 19:07:25
--- NOTE | 2023-04-17 07:00 | NM_ITS ---
APPROVED REPORT Exam: Nuclear Stress Test Indication: CAD, 1 STENT, H/O TX, HTN, DM, FM HX, PALPITATIONS Patient Location: Outpatient Stress Tech: Linda Robertson [place] Tech:Sherron FrecnhTIMOTHY RT (R)(N)(M) Ht: 5 ft 5 in Wt: 180 lbs Bra Size: B HR: 83 bpm BP: 114/83 mmHg BSA: 1.89 m2 TID: 0.93 BMI: 29.9 History: CAD, 1 STENT, H/O TX, HTN, DM, FM HX, PALPITATIONS Procedure: Patient received 0.4 mg of intravenous Lexiscan, resting heart rate 83 bpm, resting blood pressure 114/83 mmHg, with Lexiscan maximum heart rate achieved was 106 bpm which is % of the maximum predicted heart rate and blood pressure was 123/82 mmHg. With Lexiscan, patient denied any complaint of chest pain. Cardiac Stress and Resting SPECT Images: Cardiac Stress and Resting SPECT images were obtained using technetium 99m Myoview 31.0 mCi stress and 10.89 mCi at rest. Resting and stress imaging in supine and prone positions demonstrate a medium sized, severe, fixed perfusion defect in the basal to mid lateral LV wall. Gated imaging demonstrates mild reduction in global LV systolic function. There is akinesis in the lateral LV wall. LVEF is calculated at 44%. Conclusion: Medium sized, severe, fixed perfusion defect in the basal to mid lateral LV wall. There is no evidence of reversible ischemia. Gated imaging demonstrates mild reduction in global LV systolic function. There is akinesis in the lateral LV wall. LVEF is calculated at 44%. Electronically signed by : Nazanin Tidwell MD 04/21/2023 23:39:03
== END ==
LOC: RAD 06:55
PROVIDERS: PCP Family Medicine; Visit Provider Nurse Practitioner Family
DX: I11.9 Hypertensive heart disease without heart failure (principal); I25.10 Atherosclerotic heart disease of native coronary artery without angina pectoris; I42.9 Cardiomyopathy, unspecified; I65.29 Occlusion and stenosis of unspecified carotid artery; R00.2 Palpitations; E78.5 Hyperlipidemia, unspecified; E11.9 Type 2 diabetes mellitus without complications; Z79.84 Long term (current) use of oral hypoglycemic drugs; Z87.891 Personal history of nicotine dependence
CPT/HCPCS: 78452; 93017; 93018; 93306; A9502; J2785

== ENCOUNTER 2023-06-05 07:59 | Outpatient (CLI) | payer OTHER, SELFPAY ==
[2023-06-05 08:26] LABS: Basophils # 0.1 K/mm3 (0-0.2); Basophils % 0.9 % (0.1-2.0); Eosinophils # 0.1 K/mm3 (0.0-0.4); Eosinophils % 1.5 % (0.1-12.0); Hematocrit 38.3 % (37.0-47.0); Hemoglobin 12.6 g/dL (12.2-16.2); Lymphocytes # 2.4 K/mm3 (0.7-4.5); Lymphocytes % 29.4 % (10-50); Mean Corpuscular Hemoglobin 28.1 pg (27.0-31.2); Mean Corpuscular Volume 85.2 fl (81-99); Mean Platelet Volume 7.3 fl (7.4-10.4); Monocytes # 0.4 K/mm3 (0.1-1.0); Monocytes % 4.9 % (1.7-9.3); Neutrophils # 5.2 K/mm3 (1.8-7.8); Neutrophils % 63.4 % (37.0-80.0); Platelet Count 434 K/mm3 (142-424); Red Cell Distribution Width 15.5 % (11.5-17.5); White Blood Count 8.2 K/mm3 (4.8-10.8)
[2023-06-05 08:52] LABS: Chloride 102 mmol/L (98-107); Potassium 4.2 mmoL/L (3.5-5.1); Sodium 138 mmol/L (136-145)
[2023-06-05 08:54] LABS: Alanine Aminotransferase 18 U/L (12-78); Aspartate Amino Transferase 20 U/L (14-36); Bilirubin,Unconjugated 0.3 mg/dL (0.0-1.1); Blood Urea Nitrogen 12 mg/dl (7-17); Estimated Glomerular Filt Rate 74 ml/min (>60); GFR (African American) 89 ML/MIN (>60)
[2023-06-05 08:55] LABS: Albumin Level 4.2 g/dl (3.5-5.0); Alkaline Phosphatase 74 U/L (38-126); Anion Gap 9.2 mEq/L (5-15); Bilirubin,Direct 0.1 mg/dl (0.0-0.4); Bilirubin,Indirect 0.3 mg/dL (0.0-0.9); Bilirubin,Total 0.4 mg/dl (0.2-1.3); Calcium 9.6 mg/dl (8.4-10.2); Carbon Dioxide 31 mmol/L (22.0-30.0); Chol/HDL Ratio 3.3 (1-3.5); Cholesterol 142 mg/dl (140-200); Glucose 98 mg/dl (74-100); HDL Cholesterol 43 mg/dl (40-60); Total Protein,Serum 6.2 g/dl (6.3-8.2); Triglycerides 179 mg/dl (30-150); VLDL Cholesterol 36 mg/dL (0-40)
[2023-06-05 09:06] LABS: Direct LDL Cholesterol 67.18 mg/dL (100-129)
[2023-06-05 09:11] LABS: Free T4 (Free Thyroxine) 1.59 ng/dl (0.78-2.19)
[2023-06-05 09:26] LABS: Thyroid Stimulating Hormone 4.65 uIU/mL (0.465-4.68)
== END 2023-06-05 23:59 ==
LOC: LAB 08:00
PROVIDERS: PCP Family Medicine; Visit Provider Nurse Practitioner Family
DX: E11.9 Type 2 diabetes mellitus without complications (principal); E78.5 Hyperlipidemia, unspecified; I11.0 Hypertensive heart disease with heart failure; I25.10 Atherosclerotic heart disease of native coronary artery without angina pectoris; I50.20 Unspecified systolic (congestive) heart failure; I65.29 Occlusion and stenosis of unspecified carotid artery; R06.00 Dyspnea, unspecified; Z79.84 Long term (current) use of oral hypoglycemic drugs; Z87.891 Personal history of nicotine dependence
CPT/HCPCS: 36415; 80048; 80061; 80076; 83036; 84439; 84443; 85025

== ENCOUNTER 2023-07-07 09:38 | Emergency (ER) | payer OTHER, SELFPAY ==
[2023-07-07 09:39] VITALS: BP 141/89; PULSE 100; RESP 16; TEMP 36.4; O2SAT 99; BMI 28.3
[2023-07-07 09:42] VITALS: BP 141/89; PULSE 101; O2SAT 100
[2023-07-07 09:46] VITALS: BP 134/109; PULSE 97; O2SAT 100
[2023-07-07 09:58] VITALS: BP 119/75; PULSE 94; O2SAT 98
[2023-07-07] MEDS: LACTATED RINGERS 1000ML 1,000 ML 999 ML IV (10:13)
[2023-07-07 10:17] LABS: Basophils # 0.2 K/mm3 (0-0.2); Basophils % 1.3 % (0.1-2.0); Eosinophils # 0.2 K/mm3 (0.0-0.4); Eosinophils % 1.7 % (0.1-12.0); Hemoglobin 15.1 g/dL (12.2-16.2); Lymphocytes # 2.2 K/mm3 (0.7-4.5); Lymphocytes % 19.3 % (10-50); Mean Corpuscular HGB Conc 32.9 g/dL (31.8-35.4); Mean Corpuscular Hemoglobin 29.3 pg (27.0-31.2); Mean Corpuscular Volume 88.9 fl (81-99); Mean Platelet Volume 7.5 fl (7.4-10.4); Monocytes # 0.5 K/mm3 (0.1-1.0); Monocytes % 4.3 % (1.7-9.3); Neutrophils # 8.3 K/mm3 (1.8-7.8); Neutrophils % 73.4 % (37.0-80.0); Platelet Count 540 K/mm3 (142-424); Red Blood Count 5.17 M/mm3 (4.20-5.40); Red Cell Distribution Width 15.2 % (11.5-17.5); White Blood Count 11.3 K/mm3 (4.8-10.8)
[2023-07-07] MEDS: METOCLOPRAMIDE HCL 10MG/2ML VIAL 10 MG IVP (10:18)
[2023-07-07 10:26] LABS: Chloride 95 mmol/L (98-107)
[2023-07-07 10:27] LABS: Potassium 4.4 mmoL/L (3.5-5.1); Sodium 134 mmol/L (136-145)
[2023-07-07 10:29] LABS: Alanine Aminotransferase 32 U/L (12-78); Alkaline Phosphatase 89 U/L (38-126); Anion Gap 12.4 mEq/L (5-15); Aspartate Amino Transferase 27 U/L (14-36); Bilirubin,Total 0.7 mg/dl (0.2-1.3); Blood Urea Nitrogen 17 mg/dl (7-17); Carbon Dioxide 31 mmol/L (22.0-30.0); Creatinine Clearance Estimated 68 mL/min (50-200); Estimated Glomerular Filt Rate 51 ml/min (>60); GFR (African American) 62 ML/MIN (>60); Lactic Acid 1.8 mmol/L (0.7-2.1)
[2023-07-07 10:30] LABS: Albumin Level 4.7 g/dl (3.5-5.0); Albumin/Globulin Ratio 1.9 (1.1-1.8); Calcium 10.2 mg/dl (8.4-10.2); Globulin 2.5 g/dL (1.3-3.2); Glucose 114 mg/dl (74-100); Lipase 95 U/L (23-300); Magnesium 1.7 mg/dl (1.6-2.3); Total Protein,Serum 7.2 g/dl (6.3-8.2)
--- NOTE | 2023-07-07 10:33 | HMH.EDGENADL ---
Discharge Plan Disposition Patient Disposition: Home, Self-Care Prescriptions Prescriptions: New ondansetron 4 mg tablet,disintegrating 4 mg PO Q6H PRN (Reason: nausea and vomiting) Qty: 10 0RF metoclopramide HCl [Reglan] 10 mg tablet 10 mg PO Q6H PRN (Reason: nausea and vomiting) Qty: 20 0RF No Action furosemide 40 mg tablet 40 mg PO DAILY Qty: 90 3RF rosuvastatin 10 mg tablet 10 mg PO DAILY Qty: 90 3RF Jardiance 10 mg tablet 10 mg PO DAILY omeprazole 40 mg capsule,delayed release(DR/EC) PO montelukast 10 mg tablet PO Entresto 49-51 mg tablet 1 tab PO BID Qty: 60 6RF diclofenac sodium 75 mg tablet,delayed release (DR/EC) 75 mg PO BID Patient Comments: TAKE ONE TABLET BY MOUTH TWICE DAILY --TAKE WITH FOOD-- esomeprazole magnesium [Nexium] 40 mg capsule,delayed release(DR/EC) 40 mg PO DAILY metformin 1,000 mg tablet 1,000 mg PO BID Qty: 180 4RF lisinopril-hydrochlorothiazide 10-12.5 mg tablet 1 tab PO DAILY Qty: 90 3RF levothyroxine 100 mcg capsule 100 mcg PO DAILY Qty: 90 4RF medroxyprogesterone 10 mg tablet 10 mg PO DAILY Qty: 90 3RF aspirin 81 mg tablet,delayed release (DR/EC) See Rx Instructions .ROUTE .COMPLEX Qty: 90 5RF Dose Instruction: TAKE ONE TABLET BY MOUTH EVERY DAY Rx Instructions: TAKE ONE TABLET BY MOUTH EVERY DAY Referrals Follow up/Referrals: Bruce Ibrahim MD [Primary Care Provider] - See instructions Activity Restrictions/Add. Instructions Additional Instructions/Restrictions: Talk your wildlife conservationist about decreasing your tirzepatide or your Jardiance, versus spacing out the doses up to his appetite. Zofran and Reglan have both been sent to the pharmacy. Try Reglan first if you are not actively vomiting. If you are actively vomiting, just move straight to Zofran and stick it on your tongue and allow it to dissolve to decrease nausea. You can do either 1 of these medications every 6 hours. Call your family doctor to establish care for this visit to the emergency department and schedule follow-up within 48 hours to ensure improvement. If you have any worsening of your condition or any other concerning signs or symptoms, return to the emergency department or your primary care doctor for further evaluation. Reglan can cause restlessness and anxiety. If you start exhibiting the symptoms, discontinue taking Reglan, or space out the doses to every 8-10 hours. Clinical Impressions Clinical Impression: Gastroparesis, Medication side effect, Dehydration, mild, Vomiting Instructions Patient Instructions: DI for Diarrhea and Traveler's Diarrhea -- Adult, DI for Diarrhea and Traveler's Diarrhea -- Child, DI for Nausea -- Adult, DI for Nausea -- Child Discharge ED Provider: Rhys Atkinson General Adult HPI General Chief complaint: Nausea/Vomiting/Diarrhea Stated complaint: allergic reaction to medicine Time Seen by Provider: 07/07/23 09:39 Mode of Arrival: Ambulatory Source of Information: Patient Limitations: No Limitations Description of Symptoms (Recalled from ER Triage Doc. by RN): Patient states that she began taking Monjauro on June 25. Complaint of vomiting and nausea for 12 days and her head not feeling right. States her physician told her to come to the ER if she began having these symptoms. History of Present Illness HPI narrative: 58-year-old female history of hypertension, hyperlipidemia, diabetes, CAD who recently started taking tirzepatide injections presenting with abdominal pain and vomiting. Patient states that she got her first injections of tirzepatide on 06/25. At that time, also went up and her Jardiance. Since that time, patient states that she is had vomiting with very little p.o. intake. She states that over the past 12 days she is basically eaten 3 tablespoons or less of food a day, but is tolerating liquid p.o. intake intermittently. Vomiting is always nonbloody, nonbilious, looks like what she has ingested. Still having bowel movements and urinating without issue. Denies fevers, chills, or any infectious symptoms. No urinary symptoms. She has epigastric fullness without overt pain or pressure. States that since this time, she is also been feeling lightheaded and weak and sleeping more than usual. Related Data Home Medications Medication Instructions Recorded Confirmed diclofenac sodium 75 mg 75 mg PO BID . 10/04/19 06/08/23 tablet,delayed release esomeprazole magnesium 40 mg 40 mg PO DAILY GERD 10/04/19 06/08/23 capsule,delayed release (Nexium) empagliflozin 10 mg tablet 10 mg PO DAILY 12/16/22 06/08/23 (Jardiance) montelukast 10 mg tablet mg PO 04/30/23 06/08/23 omeprazole 40 mg capsule,delayed mg PO 04/30/23 06/08/23 release Previous Rx's Medication Instructions Recorded metformin 1,000 mg tablet 1,000 mg PO BID SUAGR #180 tabs 10/04/19 levothyroxine 100 mcg capsule 100 mcg PO DAILY THYROID #90 caps 08/22/20 medroxyprogesterone 10 mg tablet 10 mg PO DAILY HORMONES #90 tabs 08/25/22 aspirin 81 mg tablet,delayed See Rx Instructions .Route 09/08/22 release .COMPLEX #90 tabs furosemide 40 mg tablet 40 mg PO DAILY Edema #90 tabs 10/08/22 rosuvastatin 10 mg tablet 10 mg PO DAILY Cholesterol #90 tabs 10/08/22 sacubitril 49 mg-valsartan 51 mg 1 tab PO BID #60 tabs 04/30/23 tablet (Entresto) lisinopril 10 1 tab PO DAILY #90 tabs 06/08/23 mg-hydrochlorothiazide 12.5 mg tablet metoclopramide HCl 10 mg tablet 10 mg PO Q6H PRN nausea and 07/07/23 (Reglan) vomiting #20 tabs ondansetron 4 mg disintegrating 4 mg PO Q6H PRN nausea and 07/07/23 tablet vomiting #10 tabs Allergies Allergy/AdvReac Type Severity Reaction Status Date / Time diphenhydramine Allergy Mild Drowsy Verified 06/08/23 08:38 [From Benadryl] peanut Allergy Mild Verified 06/08/23 08:38 bee venom protein (honey bee) Allergy Verified 06/08/23 08:38 Penicillins Allergy Verified 06/08/23 08:38 Sulfa (Sulfonamide Allergy Verified 06/08/23 08:38 Antibiotics) atorvastatin AdvReac Intermediate Verified 06/08/23 08:38 simvastatin AdvReac Verified 06/08/23 08:38 [facility] Disclaimer: The information contained in this section may have been updated after the patient was seen, as this information can be updated by other users. Medical History CAD (coronary artery disease) Carotid artery stenosis Coronary arteriosclerosis Diabetes mellitus Disorder of thyroid gland Hyperlipidemia Hypertensive disorder Hypertensive heart disease Hypokalemia Palpitations Sinus tachycardia Surgical History H/O oophorectomy History of ovarian cystectomy History of partial hysterectomy Family History Other No significant family history Social History Smoking Status: Never smoker second hand exposure: No alcohol intake: never substance use type: denies use current occupational status: employed Travel in the last 8 weeks: None household members: spouse housing: house lives independently: No marital status: education level: high school service: No [place] [facility]: No current occupation: [employer] current occupational exposures/hazards: No caffeine: Yes special saira needs: No agree to transfusion: No do you feel safe at home: Yes victim of physical abuse: No victim of emotional abuse: No victim of sexual abuse: No would you like helpful sources: No ROS Obtained: Yes All systems reviewed & no additional complaints except as documented Physical Exam General General appearance: alert and in no apparent distress Head Head exam: atraumatic and normocephalic Eye Eye exam: Present normal appearance, PERRL and EOMI ENT ENT exam: Present mucous membranes moist Neck Neck exam: Present normal inspection, full ROM and trachea midline Respiratory Respiratory exam: Present normal lung sounds bilaterally; Absent respiratory distress, wheezes, stridor, accessory muscle use or prolonged expiratory phase Cardiovascular Cardiovascular exam: Present normal rhythm and tachycardia Abdominal Exam Abdominal exam: Present soft; Absent distention, tenderness, guarding, rebound or rigidity Extremities Exam Extremities exam: Absent edema Neurological Exam Neurological exam: Present alert, oriented X3, CN II-XII intact and normal gait; Absent motor sensory deficit Skin Skin exam: Present warm and dry; Absent diaphoresis or erythema Medical Decision Making Medical Records Medical records reviewed: Yes I reviewed the patient's medical records. Kirk Inquiry Pt receiving controlled substance: No Kirk was queried for this patient: No Vital Signs: 07/07/23 09:39 07/07/23 09:42 07/07/23 09:46 Temperature 97.5 F L Temperature Source Oral Pulse Rate 101 H 97 H Pulse Rate [Radial] 100 H Respiratory Rate 16 Blood Pressure 141/89 H 134/109 H Blood Pressure [Right Arm] 141/89 H Blood Pressure Mean [Right Arm] 106 Blood Pressure Source [Right Arm] Automatic Cuff Blood Pressure Position [Right Arm] Sitting 02 Sat by Pulse Oximetry 99 100 100 Oxygen Delivery Method Room Air Room Air Room Air 07/07/23 09:58 Temperature Temperature Source Pulse Rate 94 H Pulse Rate [Radial] Respiratory Rate Blood Pressure 119/75 Blood Pressure [Right Arm] Blood Pressure Mean [Right Arm] Blood Pressure Source [Right Arm] Blood Pressure Position [Right Arm] 02 Sat by Pulse Oximetry 98 Oxygen Delivery Method Room Air Lab Data Lab Results 07/07/23 10:07: WBC 11.3 H, RBC 5.17, Hgb 15.1, Hct 46.0, MCV 88.9, MCH 29.3, MCHC 32.9, RDW 15.2, Plt Count 540 H, MPV 7.5, Neut % (Auto) 73.4, Lymph % (Auto) 19.3, Ross % (Auto) 4.3, Eos % (Auto) 1.7, Baso % (Auto) 1.3, Neut # (Auto) 8.3 H, Lymph # (Auto) 2.2, Ross # (Auto) 0.5, Eos # (Auto) 0.2, Baso # (Auto) 0.2, Sodium 134 L, Potassium 4.4, Chloride 95 L, Carbon Dioxide 31 H, Anion Gap 12.4, BUN 17, Creatinine 1.10 H, Estimated Creat Clear 68, Estimated GFR 51 L, Est GFR ( Amer) 62, Glucose 114 H, Lactate 1.8, Calcium 10.2, Magnesium 1.7, Total Bilirubin 0.7, AST 27, ALT 32, Alkaline Phosphatase 89, Total Protein 7.2, Albumin 4.7, Globulin 2.5, Albumin/Globulin Ratio 1.9 H, Lipase 95, 25-OH Vitamin D Total 60.1 07/07/23 10:07 07/07/23 10:07 Orders (Tests/Meds): ED MEDICATIONS Discontinued Medications Generic Name Dose Route Start Last Admin Trade Name Freq PRN Reason Stop Dose Admin Lactated Ringer's 1,000 mls @ 999 mls/hr 07/07/23 09:57 07/07/23 10:13 Lactated Ringer's 1000 Ml Bag IV 07/07/23 10:57 999 mls/hr .Q1H1M ONE Administration Metoclopramide HCl 10 mg 07/07/23 09:57 07/07/23 10:18 Metoclopramide Hcl 10mg/2ml Vial IVP 07/07/23 09:58 10 mg ONCE ONE Administration ORDERS Category Date Time Status 25-OH Vitamin D, Total Stat Lab 07/07/23 10:07 Completed CBC w/Auto Diff [Complete Blood Count Auto Diff] Stat Lab 07/07/23 10:07 Completed CK [Creatine Kinase] Stat Lab 07/07/23 10:07 Received CMP [Comprehensive Metabolic Panel] Stat Lab 07/07/23 10:07 Completed Lactic Acid Stat Lab 07/07/23 10:07 Completed Lipase Stat Lab 07/07/23 10:07 Completed Magnesium Stat Lab 07/07/23 10:07 Completed Trop I [Troponin I] Stat Lab 07/07/23 10:07 Received Troponin I Q3H Lab 07/07/23 13:45 Ordered Troponin I Q3H Lab 07/07/23 16:45 Ordered HEART Score History (anamnesis): Slightly suspicious ECG: Non-specific disturbance Age: 45-65 years Risk factors: 1-2 risk factors Troponin: </= normal limit HEART Score: 3 Medical Decision Narrative: 58-year-old female history of hypertension, hyperlipidemia, diabetes, CAD who recently started taking tirzepatide injections presenting with abdominal pain and vomiting. Patient states that she got her first injections of tirzepatide on 06/25. At that time, also went up and her Jardiance. Since that time, patient states that she is had vomiting with very little p.o. intake. She states that over the past 12 days she is basically eaten 3 tablespoons or less of food a day, but is tolerating liquid p.o. intake intermittently. Vomiting is always nonbloody, nonbilious, looks like what she has ingested. Still having bowel movements and urinating without issue. Denies fevers, chills, or any infectious symptoms. No urinary symptoms. She has epigastric fullness without overt pain or pressure. States that since this time, she is also been feeling lightheaded and weak and sleeping more than usual. History was obtained via conversation with patient and . On arrival, patient hemodynamically stable, alert, oriented x4, appropriate, GCS 15, moving all extremities spontaneously, pupils equal and reactive to light. Full physical exam performed and significant for well-appearing woman in no acute distress. Abdomen is soft, nontender, nondistended. No flank tenderness. No overlying skin changes. Patient is mildly tachycardic and normotensive. Afebrile. Differential includes medication side effect, gastritis, enteritis, medication intolerance, UTI, pancreatitis, ACS, AL, chronic mesenteric ischemia, gastroparesis, among others. Patient was give fluids, Reglan, fluids, Pepcid for symptomatic management and correction of underlying abnormalities. Workup independently interpreted and significant for nonactionable CBC. Chemistry with hypochloremic metabolic alkalosis with respiratory compensation. Creatinine 1.1, A1c 6.0 on last check just last month, so not deemed necessary today. Lactate was negative, calcium and magnesium are also normal. LFTs nonactionable and lipase normal. Troponin and CK nonactionable. See radiology read for full review of final results. Independent interpretation of EKG shows sinus rhythm 84 beats a minute with T wave inversions in 1 and aVL without reciprocal change. TN, QRS, QT intervals within normal limits. Normal axis Heart score 3. On reevaluation, patient resting comfortably, requesting to leave stating she feels much better after Reglan and fluids. Given patient presentation, workup, history, this most likely represents gastroparesis in the setting of numerous diabetic medication changes. Because patient at baseline without signs or symptoms of clinical decompensation, deemed appropriate for discharge. Results were relayed to patient who voiced understanding and were agreeable to outpatient management and follow up. At the time of discharge the patient was hemodynamically stable, tolerating PO, and mobilizing appropriately. Critical Care Critical Care Time Critical Care Time: No
--- NOTE | 2023-07-07 10:41 | ECG_ITS ---
APPROVED REPORT Exam: Resting ECG HR:84 bpm ECG Measurements Heart Rate 84 AXES DE 122 P 135 QRSd 97 QRS 203 QT 394 T 149 QTc 435 Conclusion SINUS RHYTHM T wave inversions in I and aVL, consider subendocardial ischemia. No reciprocal change Electronically signed by : VIRIDIANA GREENFIELD, 07/08/2023 11:27:28
[2023-07-07 10:48] LABS: 25-OH Vitamin D, Total 60.1 ng/mL (30-100)
[2023-07-07 11:20] VITALS: BP 122/82; PULSE 88; RESP 15; TEMP 36.4; O2SAT 100
[2023-07-07 11:22] LABS: Troponin I < 0.01 ng/ml (0.00-0.034)
[2023-07-07 11:32] LABS: Creatine Kinase 87 U/L (30-135)
== END 2023-07-07 11:21 | disposition home or self-care (01) ==
PROVIDERS: Emergency Provider Emergency Medicine; PCP Family Medicine
DX: R10.9 Unspecified abdominal pain (principal); R11.2 Nausea with vomiting, unspecified; E86.0 Dehydration; E11.43 Type 2 diabetes mellitus with diabetic autonomic (poly)neuropathy; K31.84 Gastroparesis; I25.10 Atherosclerotic heart disease of native coronary artery without angina pectoris; I65.29 Occlusion and stenosis of unspecified carotid artery; I11.9 Hypertensive heart disease without heart failure; E78.5 Hyperlipidemia, unspecified; E07.9 Disorder of thyroid, unspecified; T38.3X5A Adverse effect of insulin and oral hypoglycemic [antidiabetic] drugs, initial encounter
CPT/HCPCS: 80053; 82306; 82550; 83605; 83690; 83735; 84484; 85025; 93005; 96361; 96374; 99285

== ENCOUNTER 2023-11-05 07:42 | Outpatient (CLI) | payer OTHER, SELFPAY ==
--- NOTE | 2023-11-05 07:43 | CA_ITS ---
FINAL REPORT TECHNIQUE: Color Doppler, duplex Doppler and harp scale sonography of the bilateral neck arterial vasculature was performed. Velocities were measured in the carotid arteries. Stenosis evaluation based on the validated velocity criteria. CLINICAL HISTORY: DM, family H/O-DARNELL COMPARISON: None FINDINGS: The peak systolic velocity of the right common carotid artery is 82 cm/s. The peak systolic velocity of the right internal carotid artery is 100 cm/s and end diastolic velocity 25 cm/s. The ICA/CCA ratio is 1.49. A mild amount of plaque is present. The right external carotid artery is patent. The right vertebral artery is patent with antegrade flow. The peak systolic velocity of the left common carotid artery is 71 cm/s. The peak systolic velocity of the left internal carotid artery is 121 cm/s and end diastolic velocity 51 cm/s. The ICA/CCA ratio is 1.78. A mild amount of plaque is present. The left external carotid artery is patent.The left vertebral artery is patent with antegrade flow. IMPRESSION: Less than 50% bilateral carotid stenoses. Bilateral patent vertebral arteries with antegrade flow. If indicated, CTA or MRA could further evaluate. Reviewed, Interpreted and Dictated by Jassi Graves III, MD Transcribed by Louise Lloyd Authenticated and [facility]
== END 2023-11-05 23:59 | disposition home or self-care (01) ==
LOC: RT 07:43
PROVIDERS: PCP Family Medicine; Visit Provider Nurse Practitioner Family
DX: I65.23 Occlusion and stenosis of bilateral carotid arteries (principal)
CPT/HCPCS: 93880

== ENCOUNTER 2024-11-29 08:47 | Outpatient (CLI) | payer OTHER, SELFPAY ==
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
--- OUTSIDE RECORDS SUMMARY | 2024-11-08 07:41 | XMS_ITS ---
Author Organization [facility] Address [address] [facility] [address] [facility] [address] [place] [id number] Care Team Providers Care Hvac Installer Name Role Phone Norma Ibrahim Primary Care Provider [phone] REASON FOR VISIT due chidi Encounters Encounter Location Date Provider Diagnosis [facility] [address] [place] [id number] 11/08/2024 Norma Ibrahim Screening for breast cancer Z12.39 Assessments Encounter Date Diagnosis (ICD Code) Assessment Notes Treatment Notes Treatment Clinical Notes Section Notes 11/08/2024 Screening for breast cancer (ICD-10 - Z12.39) Plan Of Treatment Pending Test Test Name Order Date Mammogram 11/08/2024 Next Appt Details Provider Name:Norma Julio et, 11/29/2024 11:45:00 AM, [address], [address], [place], [id number], Progress Notes * MEGGRISELDACRISTINOB:1965 (59 yo F)Acc No.[id number]:11/08/2024 Patient: CINDA BERRIOS :1965 A ge:59 Y S ex:Female Address:[address] [place] [address] [place] [address] Subjective: * Chief Complaints: * D ue chidi * Medical History: * Surgical History: * Hospitalization/Major Diagno stic Procedure: * Medications: Objective: * Vitals: * Physical Examination: Assessment: * Assessment: 1. S creening for breast cancer - Z12.39 (Primary) Plan: * Treatment: * Procedure Codes: * true * Date: Generated for Char kevin/Nanci/Aman on: 0 11/29/2024 08:49 AM EDT
--- NOTE | 2024-11-29 08:45 | CA_ITS ---
APPROVED REPORT EXAM: Comprehensive 2D, Doppler, and color-flow Echocardiogram Open Hearth Worker: Kae Berger CRT Ht: 5 ft 5 in Wt: 172lbs BSA: 1.86 BP: 117/83 mmHg Indications: Diabetes, CAD, Hyperlipidemia, Cardiomyopathy, Hypertension/HDD 2D Dimensions LA Volume 34.20 mL LA Volume Index 18.00 mL/m2 (M/F) 16-34 M-Mode Dimensions RVDd 2.85 cm (0.9-2.6) LA Diam 3.16 cm (1.9-4.0) LVDd 4.59 cm (3.5-5.7) LVDs 3.67 cm (3.5-5.7) IVSd 1.14 cm (0.6-1.1) PWd 0.96 cm (0.6-1.1) EF (Teich) 41.10% FS 20.00% EDV (Teich) 96.80 mL TAPSE 1.72 (<1.7) ESV (Teich) 57.00 mL LV Diastology E Decel Time 183 (160-240 msec) E/A Ratio 0.83 MED A' 11.80 cm/s LAT A' 9.20 cm/s Aortic Valve AO Peak GR. 7.90 mmHg Mitral Valve MV E Max Waldemar. 71.0 (40-130 cm/s) MV A Velocity 85.0 (40-130 cm/s) E/A Ratio 0.83 MV PHT 54.0 ms Pulmonary Valve PV Peak Velocity 85.0 (50-150 cm/s) Tricuspid Valve TR P. Velocity 176.00 cm/s RAP Estimate 10.00 mmHg RVSP 22.40 mmHg Left Ventricle The left ventricle is normal size. Left ventricular systolic function is normal. The left ventricular ejection fraction is within the normal range. There is increased left ventricular wall thickness. There is normal LV segmental wall motion. Transmitral Doppler flow pattern suggests impaired LV relaxation. LVEF is 55%. Right Ventricle The right ventricle is normal size. The right ventricular systolic function is normal. Atria The left atrium size is normal. The right atrium size is normal. There is no color Doppler evidence of interatrial shunt. Aortic Valve The aortic valve is mildly thickened. There is no hemodynamically significant aortic valvular stenosis. No aortic regurgitation is present. Mitral Valve The mitral valve is normal in structure. No evidence of mitral valve stenosis. Trace mitral regurgitation is present. Tricuspid Valve The tricuspid valve leaflets are thin and pliable. Trace tricuspid regurgitation. There is insufficient TR jet to estimate RVSP. Pulmonic Valve The pulmonary valve is grossly normal in structure. Trace pulmonic valve regurgitation is present. Great Vessels The aortic root is normal in size. IVC is normal in size and collapses >50% with inspiration. Pericardium There is no pericardial effusion. Other Information Study Quality: Fair Conclusion Normal biventricular systolic function. No significant valvular stenosis or regurgitation. Electronically signed by : Nazanin Tidwell MD 11/29/2024 20:05:32
--- OUTSIDE RECORDS SUMMARY | 2024-11-29 08:49 | XMS_ITS | Clinical Summary ---
Author Organization [facility] Address [address] [place] [address] Care Team Providers Care Planning Technician Name Role Phone Bruce Ibrahim MD Primary Care Provider [phone] Allergies Active Allergy Reactions Criticality Noted Date Comments Penicillins Hives Medium 06/24/2023 Sacubitril-Valsartan Nausea And Vomiting 2023 Sulfa Drugs Hives Medium 06/24/2023 Tirzepatide Nausea And Vomiting High 07/28/2023 Medications Aspirin Low Dose 81 MG EC tablet 5 Active lisinopril-hyd roCHLOROthiazi de 10-12.5 MG tablet Take 1 tablet by mouth daily. 5 Active Trulicity 0.75 MG/0.5ML solution auto-injector inject 0.5 ml (0.75 mg) subcutaneously once a week 5 Active Jardiance 25 MG 5 Active metFORMIN (Glucophage) 1000 MG tablet 5 Active levothyroxine (Synthroid, Levoxyl) 100 MCG tablet 5 Active rosuvastatin (Crestor) 10 MG tablet Take 1 tablet by mouth daily. for cholesterol 5 Active furosemide (Lasix) 40 MG tablet TAKE ONE TABLET BY MOUTH EVERY DAY FOR EDEMA 5 Active diclofenac (Voltaren) 75 MG EC tablet 5 Active potassium chloride ER (Micro-K) 10 MEQ ER capsule Take 1 capsule by mouth daily. with food 5 Active fluticasone (Flonase) 50 MCG/ACT nasal spray instill 1 spray in each nostril twice daily 5 Active MEDROL, ANDRES, 4 MG tablets take according to package instructions 5 Active montelukast (Singulair) 10 MG tablet 5 Active Active Problems Problem Noted Date Diagnosed Date Venous reflux 09/28/2024 Symptomatic varicose veins of both lower extremi ties 09/21/2024 Primary hypertension 09/21/2024 Coronary artery disease invo lving [place] heart without angina pectoris 09/21/2024 Encounters Date Type Department Care Team Description 09/28/2024 10:00 AM EDT Office Visit [facility] [address] [place] [address] Rossy Fernandez PA Symptomatic varicose veins of both lower extremities (Primary Dx); Venous reflux 09/28/2024 8:52 AM EDT - 09/28/2024 11:59 PM EDT Hospital Encounter [facility] [address] [place] [address] Symptomatic varicose veins of both lower extremities Discharge Disposition: Home or Self Care 09/28/2024 Travel 09/21/2024 8:20 AM EDT Office Visit [facility] [address] [place] [address] Rossy Fernandez PA Symptomatic varicose veins of both lower extremities (Primary Dx); Coronary artery disease involving [place] heart without angina pectoris, unspecified vessel or lesion type 09/21/2024 Travel from Last 3 Months Family History Medical History Relation Name Comments Heart disease Father Diabetes Mother Relation Name Status Comments Father Mother Social History Tobacco Use Types Packs/Day Years Used Date Smoking Tobacco: Former Cigarettes Smokeless Tobacco: Never Tobacco Cessation:Counseling Given: Not Answered Alcohol Use Standard Drinks/Week Comments Not Currently 0 (1 standard drink = 0.6 oz pur e alcohol) AUDIT-C Answer Date Recorded Q1: How often do you have a drink containing alcohol? Never 09/28/2024 Q2: How many drinks containi ng alcohol do you have on a typical day when you are drinking? Patient does not drink Q3: How often do you have si x or more drinks on one occasion? Never 09/28/2024 Comments Unknown Sex and Gender Information Value Date Recorded Sex Assigned at Not on file Legal Sex Female 8:41 PM EDT Gender Identity Not on file Sexual Orientation Not on file Last Filed Vital Signs Vital Sign Reading Time Taken Comments Blood Pressure 113/78 09/28/2024 9:57 AM EDT Pulse 80 09/28/2024 9:53 AM EDT Temperature 37.1 C (98.8 F) 09/28/2024 9:53 AM EDT Respiratory Rate - - Oxygen Saturation 99% 09/28/2024 9:53 AM EDT Inhaled Oxygen Concentration - - Weight 81.3 kg (179 lb 3.7 oz) 09/28/2024 9:53 A M EDT Height 165.1 cm (5' 5 ) 09/28/2024 9:53 AM EDT Body Mass Index 29.83 09/28/2024 9:53 AM EDT Plan of Treatment Health Maintenance Due Date Last Done Comments [facility]-Depression Screening 1965 [facility]-Diabetes: Hemoglobin A1C 1965 [facility]-HIV Screening 1965 [facility]-Hepatitis C Screening 1965 [facility]-/Child/Adol SDOH Screenings 1965 Diabetes: Dental Exam 1975 [facility]- SDOH Screenings 1983 [facility]-Adult SDOH Screenings 1983 [facility]-Pneumococcal Vaccine: 50+ Years (1 of 2 - PCV) 1984 CT Colonography 2010 Colonoscopy 2010 FIT-DNA 2010 FIT 2010 FOBT 2010 Sigmoidoscopy 2010 [facility]-Colorectal Cancer Screening 2010 [facility]-Breast Cancer Screening 2015 [facility]-Zoster Vaccines (1 of 2) 2015 LMB-SCHBO-00 Vaccine ( season) 2023 05/02/2023, 03/11/2022, 01/10/2021, Additional history exists [facility]-Influenza Vaccine (#1) 2024 [facility]-DTaP,Tdap,and Td Vaccines (2 - Td or Tdap) 05/24/2028 05/24/2018 [facility]-Cervical Cancer Screening Discontinued [facility]-HPV/Cotest Discontinued 06/20/1994, 07/1993, 12/13/1993, Additional history exists [facility]-Pap Smear Discontinued 06/20/1994, 07/1993, 12/13/1993, Additional history exists [facility]-Hepatitis B Vaccines Completed 005, 12/11/2003, 11/09/2003 [facility]-Obesity Intervention Completed 09/28/2024, 08/26 HPV Vaccines Aged Out No longer eligi ble based on patient's age to complete this topic [facility]-HIB Vaccines Aged Out No longer e ligible based on patient's age to complete this topic [facility]-Hepatitis A Vaccines Aged Out No longer eligible based on patient's age to complete this topic [facility]-IPV Vaccines Aged Out No longer e ligible based on patient's age to complete this topic [facility]-Rotavirus Vaccines Aged Out No lo nger eligible based on patient's age to complete this topic Procedures Procedure Name Priority Date/Time Associated Diagnosis Comments VAS US VENOUS DUPLEX LOWER EXTREMITY BILATERAL Routine 09/28/2024 9:44 AM EDT Symptomatic varicose veins of both lower extremities CYTO DATA CONVERSION Routine 06/20/1994 12:00 AM EST from Last 3 Months or Most Recently Relevant to Health Maintenance Results * VAS US Venous Duplex Lower Extremity Bilateral Reflux (09/28/2024 9:44 AM EDT) Anatomical Region Laterality Modality Lower Extremities Bilateral Ultrasound Impressions 09/28/2024 10:33 PM EDT Right: Limited, abnormal study; Greater saphenous venous valvular insufficiency is noted at the segment of the prox thigh and knee. No evidence of DVT is identified. Left: Normal study; No greater saphenous venous valvular insufficiency is noted. No evidence of DVT is identified. COMMUNICATION: Per this written report. Preliminary report signed by Julia Horan RVT on 09/28/2024 9:59 AM By electronically signing this report, I, the attending physician, attest that I have personally reviewed the images/data for the above examination(s) and I agree with the final edited report. Drafted by Julia Horan RVT on 09/28/2024 9:54 AM Final report signed by Anupam Chappell MD on 09/28/2024 10:33 PM Narrative 09/28/2024 10:33 PM EDT CLINICAL INDICATION: Symptomatic Varicose Veins. TECHNIQUE: Non-invasive, real time duplex exam of the lower extremity venous circulation with Doppler ultrasonic waveform and spectral analysis was performed with the patient in a reverse Trendelenburg position using valsalva maneuver. COMPARISON: None. FINDINGS: Right: Venous duplex demonstrates compressible common femoral, femoral, popliteal, posterior tibial and peroneal veins. The venous spectral analysis demonstrates a spontaneous, phasic, augmentable and nonpulsatile flow signal. Valsalva maneuvers demonstrate abnormal venous valvular function. The GSV courses straight throughout the thigh and calf and does not cross the superficial fascial plane. The following transverse measurements in cm and insufficiency times in seconds were obtained: GSV AT SFJ: 0.90 x 0.96 cm; 0 sec GSV PROX THIGH: 0.41 x 0.59 cm cm; 4.6 sec GSV AT KNEE: 0.33 x 0.39 cm; 4.0 sec GSV MID CALF: 0.10 x 0.16 cm; 0 sec SSV AT SPJ: not visualized cm; not visualized sec Left: Venous duplex demonstrates compressible common femoral, femoral, popliteal, posterior tibial and peroneal veins. The venous spectral analysis demonstrates a spontaneous, phasic, augmentable and nonpulsatile flow signal. Valsalva maneuvers demonstrate normal venous valvular function. The GSV courses straight throughout the thigh and calf and does not cross the superficial fascial plane. The following transverse measurements in cm and insufficiency times in seconds were obtained: GSV AT SFJ: 0.61 x 0.67 cm; 0 sec GSV PROX THIGH: 0.33 x 0.34 cm; 0 sec GSV AT KNEE: 0.27 x 0.29 cm; 0 sec GSV MID CALF: 0.08 x 0.12 cm; 0 sec SSV AT SPJ: 0.17 x 0.16 cm; 0 sec Procedure Note Anupam Chappell MD - 09/28/2024 CLINICAL INDICATION: Symptomatic Varicose Veins. TECHNIQUE: Non-invasive, real time duplex exam of the lower extremity venouscirculation with Doppler ultrasonic waveform and spectral analysis wasperformed with the patient in a reverse Trendelenburg position usingvalsalva maneuver. COMPARISON: None. FINDINGS: Right: Venous duplex demonstrates compressible common femoral, femoral,popliteal, posterior tibial and peroneal veins. The venous spectralanalysis demonstrates a spontaneous, phasic, augmentable and nonpulsatileflow signal. Valsalva maneuvers demonstrate abnormal venous valvular function. The GSV courses straight throughout the thigh and calf and does not crossthe superficial fascial plane. The following transverse measurements in cm and insufficiency times inseconds were obtained: GSV AT SFJ: 0.90 x 0.96 cm; 0 sec GSV PROX THIGH: 0.41 x 0.59 cm cm; 4.6 sec GSV AT KNEE: 0.33 x 0.39 cm; 4.0 sec GSV MID CALF: 0.10 x 0.16 cm; 0 sec SSV AT SPJ: not visualized cm; not visualized sec Left: Venous duplex demonstrates compressible common femoral, femoral,popliteal, posterior tibial and peroneal veins. The venous spectralanalysis demonstrates a spontaneous, phasic, augmentable and nonpulsatileflow signal. Valsalva maneuvers demonstrate normal venous valvular function. The GSV courses straight throughout the thigh and calf and does not crossthe superficial fascial plane. The following transverse measurements in cm and insufficiency times inseconds were obtained: GSV AT SFJ: 0.61 x 0.67 cm; 0 sec GSV PROX THIGH: 0.33 x 0.34 cm; 0 sec GSV AT KNEE: 0.27 x 0.29 cm; 0 sec GSV MID CALF: 0.08 x 0.12 cm; 0 sec SSV AT SPJ: 0.17 x 0.16 cm; 0 sec IMPRESSION: Right: Limited, abnormal study; Greater saphenous venous valvularinsufficiency is noted at the segment of the prox thigh and knee. Noevidence of DVT is identified. Left: Normal study; No greater saphenous venous valvular insufficiency isnoted. No evidence of DVT is identified. COMMUNICATION: Per this written report. Preliminary report signed by Julia Horan RVT on 09/28/2024 9:59 AM By electronically signing this report, I, the attending physician, attestthat I have personally reviewed the images/data for the aboveexamination(s) and I agree with the final edited report. Drafted by Julia Horan RVT on 09/28/2024 9:54 AM Final report signed by Anupam Chappell MD on 09/28/2024 10:33 PM Rossy RESTREPO CV VASCULAR PROCEDURES Final Result * Cytology (06/20/1994 12:00 AM EST) 06/20/1994 06/23/1994 Narrative SUNQUEST - 07/01/1994 12:00 AM EST [facility] MR #: [facility] [address] [place], [place] [address] 1965 (Age: 29) F Collect Date: 06/20/1994 00:00 Receipt Date: 06/23/1994 00:00 Page 1 DEPARTMENT OF PATHOLOGY AND LABORATORY MEDICINE CYTOPATHOLOGY REPORT Email: [email or web address] * Converted Case * This report may not match the original report format ATTENDING MD/Practitioner: Carli Ramsey MD Service: Location: Reported: 07/01/1994 00:00 Collected: 06/20/1994 00:00 INTERPRETATION CERVICAL SCRAPE/ENDOCERVICAL SWAB WITHIN NORMAL LIMITS. SATISFACTORY BUT LIMITED BY SPARSE TO NO ENDOCERVICAL CELLS. Electronically Signed Out By Carline Snyder GLORIA Nix (ASCP) MD Geetha Soliman CT (ASCP) Cervical cytology is a screening test primarily for squamous cancers and precursors and has associated false negative and positive results. New technologies such as liquid based sampling may decrease but will not eliminate all false negative results. Regular screening and follow-up of unexplained clinical signs and symptoms are recommended to minimize false negative results. Please see the ASCCP website (www.asccp.org) for followup recommendations. If HPV testing was requested, correlation with the results is suggested (please call Microbiology at [phone] for results). CLINICAL INFORMATION: Menstrual History: {Not Provided} Date of Last Menstrual Period: {Not Provided} SPECIMEN DESCRIPTION: A: CERVICAL/VAGINAL SMEAR, PAP ICD: F: {Not Entered} SNOMED CODES: 1; G2S162 [id number] In cases where a pathologist has signed out the report, the service has been rendered in part by a resident. The signing pathologist has performed and is responsible for the reported pathologic evaluation. us Historical Provider MD LAB PATHOLOGY ORDERABLES Final Result SUNQUEST from Last 3 Months or Most Recently Relevant to Health Maintenance Insurance [place] [id number] [employer] [facility] MEDICAID Care Teams Planning Technician Relationship Specialty Start Date End Date Bruce Ibrahim MD [address] [place] [id number] PCP - General 08/30/24
--- OUTSIDE RECORDS SUMMARY | 2024-11-29 08:49 | XMS_ITS | Clinical Summary ---
[facility] Address [address] [place] [address] Care Team Providers Care Security Compliance Specialist Name Role Phone Provider, No Known Primary Care Provider Unavail able Immunizations Immunization Administration Dates Next Due COVID-19 (PFIZER) Purple Cap Monovalent 07/12/19 21,06/20/2020 Social History Tobacco Use Types Packs/Day Years Used Date Smoking Tobacco: Never Assessed Abuse Screen Answer Date Recorded Unsafe at Home or Work/School Not on file Feels Threatened by Someone? Not on file 03/2023 Does Anyone Keep You from Co ntacting Others or Doint Things Outside the Home? Not on file 02/05/2023 Physical Sign of Abuse Present Not on file 1 Housing Stability Answer Date Recorded Current Living Arrangements Not on file 01/25 Potentially Unsafe Housing Conditions Not on liz e 02/05/2023 Family and Community Support Answer Augustus e Recorded Help with Day-to-Day Activities Not on file 02/05/2023 Lonely or Isolated Not on file 02/05/2023 Employment Answer Date Recorded Do you want help finding or keeping work or a sveta b? Not on file 02/05/2023 Disabilities Answer Date Recorded Concentrating, Remembering, or Making Decisions Difficulty Not on file 02/05/2023 Doing Errands Independently Difficulty Not on fi le 02/05/2023 Education Answer Date Recorded Help with school or training? Not on file Preferred Language Not on file 02/05/2023 Comments Unknown Sex and Gender Information Value Date Recorded Sex Assigned at Not on file Legal Sex Female 11:02 PM EST Gender Identity Not on file Sexual Orientation Not on file Plan of Treatment Health Maintenance Due Date Last Done Comments ANNUAL PHYSICAL 1965 Annual Gynecologic Pelvic and Breast Exam 1965 HEPATITIS C SCREENING 1965 MAMMOGRAM 2005 COLOGUARD 2010 COLON CANCER SCREENING 5 YEA R SIGMOIDOSCOPY 2010 COLONOSCOPY 2010 [address]AL CANCER SCREENING 2010 CT COLONOGRAPHY 2010 FECAL OCCULT BLOOD TEST 2010 FIT Testing (1 year) 2010 Pneumococcal Vaccine 50+ (1 of 1 - PCV) 2015 ZOSTER VACCINE (1 of 2) 2015 COVID-19 Vaccine (3 - season) 2023, 06/20/2020 INFLUENZA VACCINE 01/25/2025 TDAP/TD VACCINES (2 - Td or Tdap) 05/24/[address] [place] [address] Care Teams Security Compliance Specialist Relationship Specialty Start Date End Date Provider, [place] [address] PCP - General 06/20/20
--- OUTSIDE RECORDS SUMMARY | 2024-11-29 08:49 | XMS_ITS | Clinical Summary ---
Author Organization [facility] Address [address] [place] [address] Phone Care Team Providers Care Program Evaluation Consultant Name Role Phone Norma Ibrahim Primary Care Provider [phone] Allergies Active Allergy Reactions Criticality Noted Date Comments Sacubitril-Valsartan Nausea And Vomiting 2023 Tirzepatide Nausea And Vomiting High 07/28/2023 Penicillins Hives 06/24/2023 Sulfa (Sulfonamide Antibiotics) Hives 05/29 Medications aspirin 81 mg Oral Tablet, Delayed Release (E.C.) Take 81 mg by mouth daily. 4 Active LEVOthyroxine (SYNTHROID) 100 mcg Oral Tablet Take 100 mcg by mouth daily. 4 Active lisinopriL-hydr ochlorothiazide (PRINZIDE;ZESTO RETIC) 10-12.5 mg Oral Tablet Take 1 Tablet by mouth daily. 4 Active rosuvastatin (CRESTOR) 10 mg Oral Tablet Take 10 mg by mouth daily. for cholesterol 4 Active diclofenac (VOLTAREN) 75 mg Oral Tablet, Delayed Release (E.C.) Take 75 mg by mouth 2 times daily. 4 Active fUROsemide (LASIX) 40 mg Oral Tablet Take 40 mg by mouth daily. for edema 3 Active medroxyPROGESTE [place] (PROVERA) 10 mg Oral Tablet First 10 days of every month 4 Active metFORMIN (GLUCOPHAGE) 1,000 mg Oral Tablet Take 1,000 mg by mouth 2 times daily. 4 Active omeprazole (PRILOSEC) 40 mg Oral Capsule, Delayed Release(E.C.) Take 40 mg by mouth daily. 4 Active empagliflozin (JARDIANCE) 25 mg Oral Tablet Take 1 Tablet by mouth daily. 30 Tablet 11 4 Active Active Problems Problem Noted Date Diagnosed Date Type 2 diabetes mellitus wit h hyperglycemia, without long-term current use of insulin 06/24/2023 Primary hypothyroidism 06/24/2023 Hypertension associated with type 2 diabetes alexey litus 06/24/2023 Hyperlipidemia associated with type 2 diabetes m ellitus 06/24/2023 Surgical History Surgery Date Site/Laterality Comments CHOLECYSTECTOMY HYSTERECTOMY CORONARY ANGIOPLASTY WITH STENT PLACEMENT Medical History Medical History Date Comments Heart attack (HCC) Diabetes mellitus (HCC) Family History Medical History Relation Name Comments High Blood Pressure Father Diabetes Maternal Aunt Diabetes Maternal Grandmother Diabetes Maternal Uncle Diabetes Mother High Blood Pressure Mother Diabetes Paternal Grandfather High Blood Pressure Paternal Grandfather Relation Name Status Comments Father Maternal Aunt Maternal Grandmother Maternal Uncle Mother Paternal Grandfather Social History Tobacco Use Types Packs/Day Years Used Date Smoking Tobacco: Never Smokeless Tobacco: Never Tobacco Cessation:Counseling Given: Not Answered Alcohol Use Standard Drinks/Week Comments Not Currently 0 (1 standard drink = 0.6 oz pur e alcohol) Comments Unknown Sex and Gender Information Value Date Recorded Sex Assigned at Not on file Legal Sex Female 1:38 PM EST Gender Identity Not on file Sexual Orientation Not on file Obstetrics History Last Filed Vital Signs Vital Sign Reading Time Taken Comments Blood Pressure 100/68 06/24/2023 7:58 AM EST Pulse 83 06/24/2023 7:58 AM EST Temperature - - Respiratory Rate 16 06/24/2023 7:58 AM EST Oxygen Saturation - - Inhaled Oxygen Concentration - - Weight 83.7 kg (184 lb 8 oz) 06/24/2023 7:58 AM EST Height 165.1 cm (5' 5 ) 06/24/2023 7:58 AM EST Body Mass Index 30.7 06/24/2023 7:58 AM EST Plan of Treatment Health Maintenance Due Date Last Done Comments Annual Wellness Exam 1968 Kidney Health: uACR 1975 Lipids 1975 Diabetic Eye Exam 1983 Hemoglobin A1c 1983 Pneumococcal Vaccine 50+ (1 of 2 - PCV) 1984 Cervical Cancer Screening 1986 Pap Smear 1986 HPV/Pap Cotest 1995 Breast Cancer Screening 2005 Cologuard 2010 Colon Cancer Screening 2010 Colonoscopy 2010 FIT 2010 Sigmoidoscopy 2010 Virtual Colonography 2010 Zoster (1 of 2) 2015 COVID-19 Vaccine ( season) 2023 05/02/2023, 03/11/2022, 01/10/2021, Additional history exists Kidney Health: eGFR 06/24/2024 06/24/2023 Influenza Vaccine (#1) 2024 DTaP/TDaP/Td (2 - Td or Tdap) 05/24/2028 05/24/2018 Hepatitis B Vaccine Completed 05/15/2004, 12/11/2003, 11/09/2003 Meningococcal B Vaccine Aged Out No l onger eligible based on patient's age to complete this topic Procedures Procedure Name Priority Date/Time Associated Diagnosis Comments BASIC METABOLIC PANEL Routine 06/24/2023 9:04 AM EST Type 2 diabetes mellitus with hyperglycemia, without long-term current use of insulin (HCC) from Last 3 Months or Most Recently Relevant to Health Maintenance Results * (ABNORMAL) BASIC METABOLIC PANEL (06/24/2023 9:04 AM EST) Sodium 141 136 - 145 mmol/L 06/24/2023 2:04 PM EST [facility] Potassium 4.2 3.5 - 5.0 mmol/L 06/24/2023 2:04 PM EST [facility] Chloride 98 98 - 107 mmol/L 06/24/2023 2:04 PM EST [facility] Total CO2 30(H) 22 - 29 mmol/L 06/24/2023 2:04 PM EST [facility] Anion Gap 13 7 - 16 mmol/L 06/24/2023 2:04 PM EST [facility] Calcium 10.8(H) 8.6 - 10.4 mg/dL 06/24/2023 2:04 PM EST [facility] Glucose Lvl 103(H) 70 - 99 mg/dL 06/24/2023 2:04 PM EST [facility] BUN 14 6 - 20 mg/dL 06/24/2023 2:04 PM EST [facility] Creatinine 0.90 0.51 - 1.30 mg/dL 06/24/2023 2:04 PM EST [facility], [facility] eGFR (CKD-EPIcr 2020) 74 >=60 mL/min/1.7 3 m2 06/24/2023 2:04 PM EST [facility] Comment:Estimated GFR was ca lculated using the CKD-EPIcr (2020) equation refit without race. The equation is recommended by the [employer] Kid[employer] - [place] [employer] Task Force. Blood VENOUS BLOOD / Unknown Venipuncture / Unknown 06/24/2023 9:04 AM EST 06/24/2023 9:04 AM EST us Edd Garcia MD CHEMISTRY ORDERABLES Final Re sult [facility], [facility] [address] [facility], [place] [address] [facility] [address] [place] [address] from Last 3 Months or Most Recently Relevant to Health Maintenance Insurance [facility] [address] [facility] Care Teams Program Evaluation Consultant Relationship Specialty Start Date End Date Norma Ibrahim [address] [place] [address] [address] [place] [id number] PCP - General Family Medicine 06/24/23
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
== END 2024-11-29 23:59 | disposition home or self-care (01) ==
LOC: RT 08:47
PROVIDERS: PCP Family Medicine; Visit Provider Nurse Practitioner Family
DX: I25.10 Atherosclerotic heart disease of native coronary artery without angina pectoris (principal); I42.9 Cardiomyopathy, unspecified; I11.9 Hypertensive heart disease without heart failure; E11.9 Type 2 diabetes mellitus without complications; E78.5 Hyperlipidemia, unspecified
CPT/HCPCS: 93306

== ENCOUNTER 2025-01-11 15:52 | Outpatient (CLI) | payer OTHER, SELFPAY ==
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
--- OUTSIDE RECORDS SUMMARY | 2024-12-20 06:00 | XMS_ITS ---
Author Organization [facility] Address [address] [place] [phone] Care Team Providers Care Diabetes Trainer Name Role Phone Norma Ibrahim Primary Care [...] food Active Mupirocin 2 % 1 application Assistant Women'S Tennis Coach ally Twice a day 07/20/2024 Active Jardiance [...] 12/20/2024 Encounters Encounter Location Date Provider Diagnosis [facility] [address] [facility] [address] [place] [address], [place] [phone] 12/20/2024 Norma Ibrahim Seasonal allergies J30.2 and [...] Appt Details Follow Up: 1 Week, Reason: Progress Notes * DIONE WEAVEROB:1965 (59 yo F)Acc No.[id number]:12/20/2024 Patient: CINDA BERRIOS Provider: Norma Ibrahim M.D. :1965 A ge:59 Y S ex:Female Date:12/20/2024 Address:[address] [place] [address], [place], [id number] Subjective: * Chief Complaints: * 1 . [...] * Images: Billing Information: * Visit Code: 58541 Office Visit, Est Pt., Level 3. * Procedure Codes: * Electronic signature of Norma Ibrahim MD on 01/11/2025 at 03:55 PM EDT Sign off status: Pending * Provider: Norma Ibrahim M.D. Date: 0 12/20/2024 Generated for Bradeni dorita/Nanci/eTransmitting on: 0 01/11/2025 03:55 PM EDT History [...]
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
--- OUTSIDE RECORDS SUMMARY | 2025-01-11 15:55 | XMS_ITS | Clinical Summary ---
Author Organization [facility] Address [address] [place] [address] Phone Care Team Providers Care Hose Inspector Name Role Phone Norma Ibrahim Primary Care Provider [phone] Allergies Active Allergy Reactions Criticality Noted Date [...] Release(E.C.) Take 40 mg by mouth daily. Active empagliflozin (JARDIANCE) 25 mg Oral Tablet [...] Last Done Comments Annual Wellness Exam 1968 Lipids 1975 Diabetic Eye Exam 1983 Hemoglobin A1c 1983 Kidney Health: uACR 1983 Pneumococcal Vaccine 50+ (1 of 2 - PCV) 1984 Cervical Cancer Screening 1986 Pap Smear 1986 HPV/Pap Cotest 1995 Breast Cancer Screening 2005 Cologuard 2010 Colon Cancer Screening 2010 Colonoscopy 2010 FIT 2010 Sigmoidoscopy 2010 Virtual Colonography 2010 Zoster (1 of 2) 2015 Kidney Health: eGFR 06/24/2024 06/24/2023 COVID-19 Vaccine ( season) 2024 05/02/2023, 03/11/2022, 01/10/2021, Additional history exists Influenza Vaccine (#1) 2024 DTaP/TDaP/Td (2 - [...] mg/dL 06/24/2023 2:04 PM EST PREFERRED LAB [facility], [facility] Glucose Lvl 103(H) 70 - 99 mg/dL 06/24/2023 2:04 PM EST PREFERRED LAB [facility], [facility] BUN 14 6 - 20 mg/dL 06/24/2023 2:04 PM EST PREFERRED LAB [facility], [facility] Creatinine 0.90 0.51 - 1.30 mg/dL 06/24/2023 2:[address] [facility], [facility] eGFR (CKD-EPIcr 2020) 74 >=60 mL/min/1.7 3 m2 06/24/2023 2:04 PM EST [facility] Comment:Estimated GFR was ca lculated using the CKD-EPIcr (2020) equation refit without race. The equation is recommended by the National Kidney Foundation - [place] [employer] of Nephrology Task Force. Blood VENOUS BLOOD / Unknown Venipuncture / Unknown 06/24/2023 9:04 AM EST 06/24/2023 9:04 AM EST us Edd Garcia MD CHEMISTRY ORDERABLES Final Re sult PREFERRED LAB [facility], [facility] [address] [facility], [place] [address] [facility] [address] [place] [address] from Last 3 Months or Most Recently Relevant to Health Maintenance Insurance [facility] [address] [facility] [place] Care Teams Hose Inspector Relationship Specialty Start Date End Date Norma Ibrahim [address] [place] [address] [address] [place] [address] PCP - General Family Medicine 06/24/23
--- OUTSIDE RECORDS SUMMARY | 2025-01-11 15:55 | XMS_ITS | Clinical Summary ---
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 09/21/2024 Encounters Date Type Department Care Team Description 01/11/2025 Telephone [facility] [address] [facility] 5th Floor [address] [place] [address] Rossy Fernandez PA from Last 3 Months Family History Medical [...] [facility]-HIV Screening 1965 [facility]-Hepatitis C Screening 1965 [facility]-Infant/Child/Adol SDOH Screenings 1965 Diabetes: Dental Exam 1975 [facility]- SDOH Screenings 1983 [facility]-Adult SDOH Screenings 1983 [facility]-Pneumococcal Vaccine: 50+ Years (1 of 2 - PCV) 1984 CT Colonography 2010 Colonoscopy 2010 FIT-DNA 2010 FIT 2010 FOBT 2010 Sigmoidoscopy 2010 [facility]-Colorectal Cancer Screening 2010 [facility]-Breast Cancer Screening 2015 [facility]-Zoster Vaccines (1 of 2) 2015 [id number]-37 Vaccine ( season) 2024 05/02/2023, 03/11/2022, 01/10/2021, Additional history exists [facility]-Influenza Vaccine (#1) 2024 [facility]-DTaP,Tdap,and Td Vaccines (2 - Td or Tdap) 05/24/2028 05/24/2018 [facility]-Cervical Cancer Screening Discontinued [facility]-HPV/Cotest Discontinued 06/20/1994, 0 07/1993, 12/13/1993, Additional history exists [facility]-Pap Smear Discontinued 06/20/1994, 0 07/1993, 12/13/1993, Additional history exists [facility]-Hepatitis B [...] Procedure Name Priority Date/Time Associated Diagnosis Comments CYTO DATA CONVERSION Routine 06/20/1994 12:00 AM EST from Last 3 Months or Most Recently Relevant to Health Maintenance Results * Cytology (06/20/1994 12:00 AM EST) 06/20/1994 06/23/1994 Narrative SUNQUEST - 07/01/1994 12:00 AM EST [facility] MR #: [facility] [address] [place], [place] [address] 1965 (Age: 29) F Collect Date: 06/20/1994 00:00 Receipt Date: 06/23/1994 00:00 Page 1 DEPARTMENT OF PATHOLOGY AND LABORATORY MEDICINE CYTOPATHOLOGY REPORT Email: [email or web address] [phone] * Converted Case * This report may [...] results is suggested (please call Microbiology at [phone] for results). CLINICAL INFORMATION: Menstrual History: {Not Provided} Date of Last Menstrual Period: {Not Provided} SPECIMEN DESCRIPTION: A: CERVICAL/VAGINAL SMEAR, PAP ICD: F: {Not Entered} SNOMED CODES: 1; [id number] In cases where a pathologist has signed out the report, the service has been rendered in part by a resident. The signing pathologist has performed and is responsible for the reported pathologic evaluation. us Historical Provider LAB PATHOLOGY ORDERABLES Fin al Result SUNQUEST from Last 3 Months or Most Recently Relevant to Health Maintenance Insurance [employer] [facility] MEDICAID Care Teams Pan Tank Worker Relationship Specialty Start Date End Date Bruce Ibrahim MD [address] [place] [address] PCP - General 08/30/24
--- OUTSIDE RECORDS SUMMARY | 2025-01-11 15:55 | XMS_ITS | Clinical Summary ---
[facility] Organization [facility] Address [address] [place] [address] Care Team Providers Care Lamination Spinner Name Role Phone Provider, No Known Primary [...] of 2) 2015 COVID-19 Vaccine (3 - 2024- season) 2024, 06/20/2020 INFLUENZA VACCINE 01/25/2025 TDAP/TD VACCINES (2 - Td or Tdap) 05/24/[address] [place] [address] Care Teams Lamination Spinner Relationship Specialty Start Date End Date Provider, [place] [address] PCP - General 06/20/20
--- OUTSIDE RECORDS SUMMARY | 2025-01-11 15:55 | XMS_ITS | Encounter Summary ---
Author Organization Healthcare Address [address] [place] [address] Care Team Providers Care Buckle Attacher Name Role Phone Bruce Ibrahim MD Primary Care Provider [phone]- [phone] Encounter Details Date Type Department Care Team (Late st Contact Info) Description 01/11/2025 Telephone [place] [facility] [address] [facility] 5th Floor [address], [address] [place] [address] Rossy Fernandez, LAURO [address] [facility] [address] [place] [address] Social History Tobacco Use Types Packs/Day Years Used Date Smoking Tobacco: Former Cigarettes Smokeless Tobacco: Never Alcohol Use Standard Drinks/Week Comments Not Currently [...] on file Sexual Orientation Not on file documented as of this encounter Miscellaneous Notes * Telephone Encounter - Torrie Beltre - 01/11/2025 10:35 AM EDT Spoke w/pt. She is not ready to schedule surgery yet. Set appt schedule reminder out 6 months. Let her know that if she is ready to schedule before we contact her, she is welcome to call us. No otherneeds at this time. documented in this encounter Plan of Treatment Not on file documented as of this encounter Visit Diagnoses Not on filedocumented in this encounter Additional Health Concerns Assessment Noted Time A Body Mass Index follow-up plan has been documented for the patient 09/28/2024 10:24 AM EDT documented as of this encounter Care Teams Buckle Attacher Relationship Specialty Start Date End Date Bruce Ibrahim MD [address] [place] [address] PCP - General 08/30/24 documented as of this encounter
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
[2025-01-11 16:46] LABS: Magnesium 1.6 mg/dl (1.6-2.3)
== END 2025-01-11 23:59 | disposition home or self-care (01) ==
LOC: LAB 15:53
PROVIDERS: PCP Family Medicine; Visit Provider Family Medicine
DX: E83.42 Hypomagnesemia (principal)
CPT/HCPCS: 36415; 83735

== ENCOUNTER 2025-01-26 09:59 | Outpatient (CLI) | payer OTHER, SELFPAY ==
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
--- OUTSIDE RECORDS SUMMARY | 2024-12-13 11:00 | XMS_ITS ---
Author Organization [facility] [address] [place] [phone] Care Team Providers Care Sterile Supply Technician Name Role Phone Norma Ibrahim Primary Care [...] 09/27/2013 Active Mupirocin 2 % 1 application Lead Javascript Engineer ally Twice a day 07/20/2024 Active Rosuvastatin [...] once a day prn Active Vital Signs Blood pressure systolic 116 mm Hg 12/14/19 25 Blood pressure diastolic 76 mm Hg 025 Heart Rate 70 /min 12/13/2024 Height 64.50 in 12/13/2024 Weight 171.8 lbs 12/13/2024 BMI 29.03 kg/m2 12/13/2024 Encounters Encounter Location Date Provider Diagnosis [facility] [address] [phone] 12/13/2024 Norma Ibrahim Sebaceous cyst L72.3 ; [...] Appt Details Follow Up: 1 week, Reason: Procedure Notes * Category Sub-Category Detail Notes [...] Notes * DIONE WEAVEROB:1965 (59 yo F)Acc No.[id number]:12/13/2024 Progress Notes Patient: CINDA BERRIOS Provider: Norma Ibrahim M.D. :1965 A ge:59 Y S ex:Female Date:12/13/2024 Address:[address] [place] [address], [place], [id number] Subjective: * Chief Complaints: * 1 . [...] with no induration or drainage today. Is table tender to palpation. Just above this area there is a 3 mm skin tag.. Assessment: * Assessment: 1. S ebaceous cyst - L72.3 (Primary) 2 . L ocal infection of the skin and subcutaneous tissue, unspecified - L08.9 3 . I rritation symptom of skin - R23.8? 4. B MN 29.0-29.9,adult - Z68.29 Plan: * Treatment: * [...] was snipped at the base. . Post-op: Johnny resendiz post-procedure care instructions were reviewed. * Procedure Codes: 1 1401 EXCISION BENIGN LESION, TRUNK,ARMS,LEG, 0.6 TO 1.0 CM, 33604 SHAVE LESION,TRUNK,ARMS,LEGS 0.5 CM OR LESS, 1036F TOBACCO NON-USER, 3074F SYST BP LT 130 MM HG, 3078F DIAST BP < 80 MM HG * Follow Up: 1 week * Images: Billing Information: * Visit Code: 62608 Office Visit, Est Pt., Level 2. Modifiers: 25 * Procedure Codes: 38376 EXCISION BENIGN LESION, TRUNK,ARMS,LEG, 0.6 TO 1.0 CM. 35579 SHAVE LESION,TRUNK,ARMS,LEGS 0.5 CM OR LESS. 1036F TOBACCO NON-USER. 3074F SYST BP LT 130 MM HG. 3078F DIAST BP < 80 MM HG. * Electronic signature of Norma Ibrahim MD on 01/26/2025 at 10:02 AM EDT Sign off status: Pending * Provider: Norma Ibrahim M.D. Date: 0 12/13/2024 Generated for Char kevin/Nanci/Sherryitting on: 10:02 AM EDT History and Physical [...] with no induration or drainage today. Is table tender to palpation. Just above this area there is a 3 mm skin tag.
--- OUTSIDE RECORDS SUMMARY | 2024-12-20 06:00 | XMS_ITS ---
[facility] Organization [facility] Address [address] [place] [phone] Care Team Providers Care Records Assistant Name Role Phone Norma Ibrahim Primary [...] food Active Mupirocin 2 % 1 application Press Service Reader ally Twice a day 07/20/2024 Active Jardiance [...] Duration: 30 days 11/03/2024 Active Vital Signs Blood pressure systolic 124 mm Hg 12/21/19 25 Blood pressure diastolic 70 mm Hg 025 Heart Rate 88 /min 12/20/2024 Height 64.50 in 12/20/2024 Weight 171.4 lbs 12/20/2024 BMI 28.96 kg/m2 12/20/2024 Encounters Encounter Location Date Provider Diagnosis [facility] [address], [place] [phone] 12/20/2024 Norma Ibrahim Seasonal allergies J30.2 and [...] Notes * DIONE WEAVEROB:1965 (59 yo F)Acc No.[id number]:12/20/2024 Patient: CINDA BERRIOS Provider: Norma Ibrahim M.D. :1965 A ge:59 Y S ex:Female Date:12/20/2024 Address:[address] [place] [address], [place], [phone] Subjective: * Chief Complaints: * 1 . [...] * Images: Billing Information: * Visit Code: 51473 Office Visit, Est Pt., Level 3. * Procedure Codes: * Electronic signature of Norma Ibrahim MD on 01/26/2025 at 10:02 AM EDT Sign off status: Pending * Provider: Norma Ibrahim M.D. Date: 0 12/20/2024 Generated for Bradeni dorita/Nanci/eTransmitting on: 10:02 AM EDT History and Physical [...]
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
--- OUTSIDE RECORDS SUMMARY | 2025-01-26 10:02 | XMS_ITS | Clinical Summary ---
[facility] Address [address] [place] [address] Care Team Providers Care Food Service Lead Name Role Phone Provider, No Known Primary [...] 2005 COLOGUARD 2010 COLON CANCER SCREENING 5 YEAR SIGMOIDOSCOPY 2010 COLONOSCOPY 2010 [address] CANCER SCREENING 2010 CT COLONOGRAPHY 2010 FECAL OCCULT BLOOD TEST 2010 FIT Testing (1 year) 2010 Pneumococcal Vaccine 50+ (1 of 1 - PCV) 2015 ZOSTER VACCINE (1 of 2) 2015 INFLUENZA VACCINE 11/25/2024 TDAP/TD VACCINES (2 - Td or Tdap) 05/24/[address] [place] [address] Care Teams Food Service Lead Relationship Specialty Start Date End Date Provider, No Known [facility] [place] [address] PCP - General 06/20/20
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
--- OUTSIDE RECORDS SUMMARY | 2025-01-26 10:03 | XMS_ITS | Encounter Summary ---
Author Organization Healthcare Address [address] [place] [address] Care Team Providers Care Laborer Operator Name Role Phone Bruce Ibrahim MD Primary Care Provider [phone]- [phone] Encounter Details Date Type Department Care Team (Late st Contact Info) Description 01/11/2025 Telephone [facility] [address] [facility] 5th Floor [address] [place] [address] Rossy Fernandez, LAURO [address] [facility] [address] [place] [address] Social History Tobacco Use Types [...] documented as of this encounter Care Teams Laborer Operator Relationship Specialty Start Date End Date Bruce Ibrahim MD [address] [place] [address] PCP - General 08/30/24 documented as of this encounter
--- OUTSIDE RECORDS SUMMARY | 2025-01-26 10:03 | XMS_ITS | Clinical Summary ---
Author Organization [facility] Address [address] [place] [address] Care Team Providers Care Sewage Disposal Worker Name Role Phone Bruce Ibrahim MD Primary Care Provider [phone]- [phone] Allergies Active Allergy Reactions Criticality Noted Date [...] hypertension 09/21/2024 Coronary artery disease invo lving [place] heart without angina pectoris 09/21/2024 Encounters Date Type Department Care Team Description 01/11/2025 Telephone [place] [facility] [address] [facility] 5th Floor [address] [place] [address] Rossy Fernandez PA from Last [...] 2015 UKY-Zoster Vaccines (1 of 2) 2015 [id number] Vaccine ( season) 2024 05/02/2023, 03/11/2022, 01/10/2021, [...] Narrative SUNQUEST - 07/01/1994 12:00 AM EST [facility] MR #: [facility] SARAH WEAVER [place], [place] [address] 1965 (Age: 29) F Collect Date: 06/20/1994 00:00 Receipt Date: 06/23/1994 00:00 Page 1 DEPARTMENT OF PATHOLOGY AND LABORATORY MEDICINE CYTOPATHOLOGY REPORT Email: [email or web address] [phone] * Converted Case * This report may [...] results is suggested (please call Microbiology at [phone] for results). CLINICAL INFORMATION: Menstrual History: {Not Provided} Date of Last Menstrual Period: {Not Provided} SPECIMEN DESCRIPTION: A: CERVICAL/VAGINAL SMEAR, PAP ICD: F: {Not Entered} SNOMED CODES: 1; A5A313 [id number] In cases where a pathologist has signed out the report, the service has been rendered in part by a resident. The signing pathologist has performed and is responsible for the reported pathologic evaluation. us Historical Provider LAB PATHOLOGY ORDERABLES Fin al Result SUNQUEST from Last 3 Months or Most Recently Relevant to Health Maintenance Insurance AETNA [facility] MEDICAID Care Teams Sewage Disposal Worker Relationship Specialty Start Date End Date Bruce Ibrahim MD [address] [place] [address] PCP - General 08/30/24
--- OUTSIDE RECORDS SUMMARY | 2025-01-26 10:03 | XMS_ITS | Clinical Summary ---
Author Organization [facility] Address [address] [place] [address] Phone Care Team Providers Care Occupational Therapy Aide Name Role Phone Norma Ibrahim Primary Care Provider Allergies Active Allergy Reactions Criticality Noted Date [...] Tablet by mouth daily. 30 Tablet 11 Active Active Problems Problem Noted Date Diagnosed [...] mg/dL 06/24/2023 2:04 PM EST [facility] Glucose Lvl 103(H) 70 - 99 mg/dL 06/24/2023 2:04 PM EST [facility] BUN 14 6 - 20 mg/dL 06/24/2023 2:04 PM EST [facility] Creatinine 0.90 0.51 - 1.30 mg/dL 06/24/2023 2:04 PM EST [facility] eGFR (CKD-EPIcr 2020) 74 >=60 mL/min/1.7 3 m2 06/24/2023 2:04 PM EST [facility] Comment:Estimated GFR was ca lculated using the CKD-EPIcr (2020) equation refit without race. The equation is recommended by the National Kidney Foundation - [place] Society of Nephrology Task Force. Blood VENOUS BLOOD / Unknown Venipuncture / Unknown 06/24/2023 9:04 AM EST 06/24/2023 9:04 AM EST us Edd Garcia MD CHEMISTRY ORDERABLES Final Re sult [facility] [address] [facility], [place] [address] [facility] [address] [place] [phone] from Last 3 Months or Most Recently Relevant to Health Maintenance Insurance AETNA [facility] [place] [address] [facility] [address] Care Teams Occupational Therapy Aide Relationship Specialty Start Date End Date Norma Ibrahim [address] [place] [address] [address] [place] [address] PCP - General Family Medicine 06/24/23
[2025-01-26 10:33] LABS: Hematocrit 39.2 % (37.0-47.0); Hemoglobin 12.4 g/dL (12.2-16.2); Immature Granulocytes % 0.3 %; Mean Corpuscular HGB Conc 31.6 g/dL (31.8-35.4); Mean Corpuscular Hemoglobin 28.1 pg (27.0-31.2); Mean Corpuscular Volume 88.9 fl (81-99); Nucleated Red Blood Cells % 0 %; Platelet Count 473 K/mm3 (142-424); Red Blood Count 4.41 M/mm3 (4.20-5.40); Red Cell Distribution Width-SD 45.3 fL; White Blood Count 8.8 K/mm3 (4.8-10.8)
[2025-01-26 11:15] LABS: Alanine Aminotransferase 26 U/L (12-78); Albumin Level 4.2 g/dl (3.5-5.0); Alkaline Phosphatase 86 U/L (38-126); Anion Gap 15.1 mEq/L (5-15); Aspartate Amino Transferase 21 U/L (14-36); Bilirubin,Direct 0.2 mg/dl (0.0-0.4); Bilirubin,Indirect 0.3 mg/dL (0.0-0.9); Bilirubin,Total 0.5 mg/dl (0.2-1.3); Bilirubin,Unconjugated 0.3 mg/dL (0.0-1.1); Blood Urea Nitrogen 17 mg/dl (7-17); Calcium 9.9 mg/dl (8.4-10.2); Carbon Dioxide 31 mmol/L (22.0-30.0); Chloride 95 mmol/L (98-107); Cholesterol 126 mg/dl (140-200); Creatinine,Serum 0.80 mg/dl (0.52-1.04); Estimated Glomerular Filt Rate 73 ml/min (>60); GFR (African American) 89 ML/MIN (>60); Glucose 96 mg/dl (74-100); HDL Cholesterol 55 mg/dl (40-60); Magnesium 2.3 mg/dl (1.6-2.3); Potassium 4.1 mmoL/L (3.5-5.1); Sodium 137 mmol/L (136-145); Total Protein,Serum 6.2 g/dl (6.3-8.2); Triglycerides 164 mg/dl (30-150)
[2025-01-26 11:29] LABS: Free T4 (Free Thyroxine) 1.74 ng/dl (0.78-2.19)
[2025-01-26 11:32] LABS: 25-OH Vitamin D, Total 50.8 ng/mL (30-100)
[2025-01-26 11:44] LABS: Thyroid Stimulating Hormone 2.57 uIU/mL (0.465-4.68)
[2025-01-26 12:03] LABS: Vitamin B12 211 pg/mL (239-931)
== END 2025-01-26 23:59 | disposition home or self-care (01) ==
LOC: LAB 10:00
PROVIDERS: PCP Family Medicine; Visit Provider Nurse Practitioner Family
DX: I25.10 Atherosclerotic heart disease of native coronary artery without angina pectoris (principal); E78.5 Hyperlipidemia, unspecified; E11.9 Type 2 diabetes mellitus without complications
CPT/HCPCS: 80048; 80061; 80076; 82306; 82607; 83735; 84439; 84443; 85025

== ENCOUNTER 2025-02-22 12:33 | Outpatient (CLI) | payer OTHER, SELFPAY ==
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
--- OUTSIDE RECORDS SUMMARY | 2024-12-08 07:15 | XMS_ITS ---
Author Organization [facility] Address [facility] [address] [place] [phone] Care Team Providers Care Pyrotechnist Name Role Phone Norma Ibrahim Primary Care [...] Unknown Drug Allergy Active REASON FOR VISIT cyst on inside of thigh Medications Medication SIG (Take, Route, Frequency, Duration) Notes Start Date End Date Status Clindamycin HCl 300 MG 1 capsule Orally twice a day 12/08/2024 Active Montelukast Sodium 10 mg TAKE ONE TABLET BY MOUTH EVERY DAY Active Trulicity 0.75 MG/0.5ML 0.5 mL Subcutane ous once a week; Duration: 28 days Active metFORMIN HCl 1000 MG 1 tablet with a me al Orally twice a day; Duration: 30 days Active Fluticasone Propionate 50 MCG/ACT instill 1 SPRAY IN EACH NOSTRIL TWICE DAILY Active Diclofenac Sodium 75 mg TAKE ONE TABLET BY MOUTH TWICE DAILY - TAKE WITH FOOD-; Duration: 90 Active Jardiance 25 mg 1 tablet Orally Once a day; Duration: 90 days Active Medrol 4 MG as directed Orally 11/29/2024 Not-Taking Magnesium Oxide 400 MG 1 tablet with tiffany d Orally Once a day; Duration: 30 days 11/03/2024 Active Doxycycline Hyclate 100 MG 1 capsule Orally twice a day; Duration: 10 days 11/01/2024 Active Mupirocin 2 % 1 application Block Trimmer ally Twice a day 07/20/2024 Active Potassium Chloride ER 10 mEq take one capsule by mouth every day with food Active Levothyroxine Sodium 100 mcg take one tablet by mouth every day in the morning on an empty stomach Active EPINEPHrine 0.3 MG/0.3ML INJECT THE CONT ENTS OF 1 AUTO-INJECTOR INTRAMUSCULARLY ONCE NEEDED FOR ANAPHYLAXIS REACTION; Duration: 1 Active Lisinopril-hydroCHLOROth iazide 10-12.5 MG 1 tab(s) orally once a day 09/27/2013 Active Omeprazole 40 mg TAKE ONE CAPSULE BY MOUTH 30 minutes BEFORE morning meal EVERY DAY; Duration: 30 Active Metoclopramide HCl 10 MG 1 tablet before meals Orally q6h prn nausea 07/23/2023 Active Ondansetron HCl 4 MG 1 tablet Orally thr ee times a day as needed 06/30/2023 Active Provera 10 MG 1 tab(s) orally firs t 10 days of each month; Duration: 10 Active Rosuvastatin Calcium 10 MG 1 tab(s) orally once a day (at bedtime) 12/16/2016 Active Lasix 40 MG 1 tab(s) orally once a day prn Active Aspirin 81 MG 1 tab(s) orally once a day 06/03/2013 Active Vital Signs Weight 169.8 lbs 12/08/2024 Blood pressure systolic 118 mm Hg 12/09/19 25 Blood pressure diastolic 70 mm Hg 025 Heart Rate 97 /min 12/08/2024 Height 64.50 in 12/08/2024 BMI 28.69 kg/m2 12/08/2024 Encounters Encounter Location Date Provider Diagnosis [facility] [address], [place] [phone] 12/08/2024 R Naga Ibrahim Sebaceous cyst L72.3 and BMI 28.0-28.9,adult Z68.28 Assessments Encounter Date Diagnosis (ICD Code) Assessment Notes Treatment Notes Treatment Clinical Notes Section Notes 12/08/2024 Sebaceous cyst (ICD-10 - L72.3) Schedule follow-up for excision 12/08/2024 BMI 28.0-28.9,adult (ICD-10 - Z68.28) Plan Of Treatment Medication Medication Name Sig Start Date Stop Date Notes Clindamycin HCl 300 MG 1 capsule Orally twice a day 2024 Treatment Notes Assessment Notes Sebaceous cyst Schedule follow-up f or excision Next Appt Details Follow Up: 30 min for proced ure, Reason: Provider Name:Norma Nielson Walterelvin calixto, 02/23/2025 10:15:00 AM, [address], [address], [place], [place], [phone], Progress Notes * DIONE WEAVEROB:1965 (59 yo F)Acc No.[id number]:12/08/2024 Progress Notes Patient: CINDA BERRIOS Provider: Norma Ibrahim M.D. :1965 A ge:59 Y S ex:Female Date:12/08/2024 Address:[address] [place] [address], [place], [id number] Subjective: * Chief Complaints: * 1 . Cyst on inside of thigh. * HPI: D ermatology: 59 year old female presents with c/o cyst O n right proximal thigh that she noticed 6 days ago. It has gotten slightly larger and more tender and had some drainage yesterday.. * ROS: D ERMATOLOGY: no R palmira. [...] meals Orally q6h prn nausea , Taking Omeprazole 40 mg Capsule Delayed [...] tablet Orally Once a day , Taking Diclofenac Sodium 75 mg Tablet Delayed Release TAKE ONE TABLET BY MOUTH TWICE DAILY - TAKE WITH FOOD- , Taking Doxycycline Hyclate 100 MG Capsule 1 capsule Orally twice a day , Taking Magnesium Oxide 400 MG Tablet 1 tablet with food Orally Once a day , Taking Montelukast Sodium 10 mg Tablet TAKE ONE TABLET BY MOUTH EVERY DAY , Taking Fluticasone Propionate 50 MCG/ACT Suspension instill 1 SPRAY IN EACH NOSTRIL TWICE DAILY , Taking metFORMIN HCl 1000 MG Tablet 1 tablet with a meal Orally twice a day , Taking Trulicity 0.75 MG/0.5ML Solution Auto-injector 0.5 mL Subcutaneous once a week , Not-Taking Medrol 4 MG Tablet Therapy Pack as directed Orally , Medication List reviewed and reconciled with the patient * Allergies: P enicillin, Sulfa Antibiotics, Peanut (Diagnostic): anaphylaxis, Cefdinir: nausea - Side Effects, Levaquin: stomach upset - Side Effects. Objective: * Vitals: W t: 169.8, Temp: 98.4, BP: 118/70, HR: 97, Nurse: tavon, Ht: 64.50, BMI:28.69. * Examination: G eneral Examination: M ildly tender sebaceous cyst on the right proximal thigh measuring about 1 cm in size. No drainage. Assessment: * Assessment: 1. S ebaceous cyst - L72.3 (Primary) 2 . B MN 28.0-28.9,adult - Z68.28 Plan: * Treatment: * Procedure Codes: 1 036F TOBACCO NON-USER, 3074F SYST BP LT 130 MM HG, 3078F DIAST BP < 80 MM HG * Follow Up: 3 0 min for procedure * Images: Billing Information: * Visit Code: 88977 Office Visit, Est Pt., Level 3. * Procedure Codes: 1036F TOBACCO NON-USER. 3074F SYST BP LT 130 MM HG. 3078F DIAST BP < 80 MM HG. * Electronic signature of Norma Ibrahim MD on 02/22/2025 at 12:38 PM EDT Sign off status: Pending * Provider: Norma Ibrahim M.D. Date: 0 12/08/2024 Generated for Char kevin/Nanci/Brianaransmitting on: 1 12:38 PM EDT History and Physical Notes * HPI (History of Present Illness) Category Sub-Category Detail Notes Category Not es Dermatology cyst On right proxima l thigh that she noticed 6 days ago. It has gotten slightly larger and more tender and had some drainage yesterday. Examination Category Sub-Category Detail Notes Category Not es General Examination Mildly t caitlin sebaceous cyst on the right proximal thigh measuring about 1 cm in size. No drainage
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
--- OUTSIDE RECORDS SUMMARY | 2025-02-02 06:05 | XMS_ITS ---
Author Organization [facility] Address [facility] [address] [place] [id number] Care Team Providers Care Clinical Engineering Director Name Role Phone Norma Ibrahim Primary Care [...] DAY Active Mupirocin 2 % 1 application Tube Turner ally Twice a day 07/20/2024 Active Potassium [...] Active Encounters Encounter Location Date Provider Diagnosis [facility] 1210 [facility] 36 [facility] [address] [place] [phone] 02/02/2025 Norma Ibrahim Vitamin B12 deficien cy E53.8 Assessments Encounter Date Diagnosis (ICD Code) Assessment Notes Treatment Notes Treatment Clinical Notes Section Notes 02/02/2025 Vitamin B12 deficiency (ICD-10 - E53.8) Plan Of Treatment Next Appt Details Provider Name:Norma Ortiz, 02/23/2025 10:15:00 AM, 1210 [facility] 36 [facility], [address], [place], [phone], Medications Administered Medication Instructions Date of Administration Dosage Notes B-12 02/02/2025 1 mL Progress Notes * DIONE WEAVEROB:1965 (59 yo F)Acc No.[id number]:02/02/2025 Patient: CINDA BERRIOS Provider: Norma Ibrahim M.D. :1965 A ge:59 Y S ex:Female Date:02/02/2025 Address:[address] [place] [address], [place], [id number] Subjective: * Chief Complaints: * 1 . [...] deficiency) * Procedure Codes: J 3420 B-12, 64891 ADMINISTRATION OF INJECTION * Images: Billing Information: * Visit Code: * Procedure Codes: J3420 B-12. 00066 ADMINISTRATION OF INJECTION. * Electronic signature of Norma Ibrahim MD on 02/22/2025 at 12:37 PM EDT Sign off status: Pending * Provider: Norma Ibrahim M.D. Date: 1 Generated for Char kevin/Nanci/Aman on: 12:37 PM EDT
--- OUTSIDE RECORDS SUMMARY | 2025-02-09 06:00 | XMS_ITS ---
Author Organization [facility] Address 1210 [facility] 36 [facility] [address] [place] [phone] Care Team Providers Care Certified Medication Aide Name Role Phone Norma Ibrahim Primary Care Provider REASON FOR VISIT B12 Encounters Encounter Location Date Provider Diagnosis [facility] [address] [facility] [address] [place] [phone] 02/09/2025 Norma Ibrahim Vitamin B12 deficien cy E53.8 Assessments Encounter Date Diagnosis (ICD Code) Assessment Notes Treatment Notes Treatment Clinical Notes Section Notes 02/09/2025 Vitamin B12 deficiency (ICD-10 - E53.8) Plan Of Treatment Next Appt Details Follow Up: 1 Week, Reason: Provider Name:Norma Ortiz, 02/23/2025 10:15:00 AM, [address] [facility], [address], [place], [phone], Medications Administered Medication Instructions Date of Administration Dosage Notes B-12 02/09/2025 1 mL Progress Notes * DIONE WEAVEROB:1965 (59 yo F)Acc No.[id number]:02/09/2025 Patient: CINDA BERRIOS Provider: Norma Ibrahim M.D. :1965 A ge:59 Y S ex:Female Date:02/09/2025 Address:[address] [place] [address] [place] [id number] Subjective: * Chief Complaints: * 1 . B12. * Medical History: Objective: * Vitals: Assessment: * Assessment: 1. V itamin B12 deficiency - E53.8 (Primary) Plan: * Treatment: * Therapeutic Injections: B-12 : 1 mL (Route: Intramuscular) given by KENDAL Oliveira on right deltoid (Vitamin B12 deficiency) * Procedure Codes: J 3420 B-12, 52420 ADMINISTRATION OF INJECTION * Follow Up: 1 Week * Images: Billing Information: * Visit Code: * Procedure Codes: J3420 B-12. 16417 ADMINISTRATION OF INJECTION. * Electronic signature of Norma Ibrahim MD on 02/22/2025 at 12:37 PM EDT Sign off status: Pending * Provider: Norma Ibrahim M.D. Date: Generated for Char kevin/Nanci/Aman on: 12:37 PM EDT
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
--- OUTSIDE RECORDS SUMMARY | 2025-02-21 11:26 | XMS_ITS ---
Author Organization [facility] Address 1210 [facility] 36 [facility] [address] [place] [phone] Care Team Providers Care Junior Sales Representative Name Role Phone Norma Ibrahim Primary Care Provider REASON FOR VISIT Lab Order Encounters Encounter Location Date Provider Diagnosis [facility] 1210 [facility] 36 [facility] [address] [place] [phone] 02/21/2025 Norma Ibrahim Hypomagnesemia E83.4 2 and Vitamin B12 deficiency E53.8 Assessments Encounter Date Diagnosis (ICD Code) Assessment Notes Treatment Notes Treatment Clinical Notes Section Notes 02/21/2025 Hypomagnesemia (ICD-10 - E83.42) 02/21/2025 Vitamin B12 deficiency (ICD-10 - E53.8) Plan Of Treatment Pending Test Test Name Order Date H-Magnesium 02/21/2025 H-VITAMIN B12 02/21/2025 Next Appt Details Provider Name:Norma Julio et, 02/23/2025 10:15:00 AM, [address] [facility], [address], [place], [phone], Progress Notes * MEG DIONEOB:1965 (59 yo F)Acc No.[id number]:02/21/2025 Patient: CINDA BERRIOS :1965 A ge:59 Y S ex:Female Address:[address] [place], [place] [address] [address] Subjective: * Chief Complaints: * L ab Order * Medical History: * Surgical History: * Hospitalization/Major Diagno stic Procedure: * Medications: Objective: * Vitals: * Physical Examination: Assessment: * Assessment: 1. H ypomagnesemia - E83.42 2 . V itamin B12 deficiency - E53.8 ? Plan: * Treatment: 2. V itamin B12 deficiency L AB: H-VITAMIN B12 * Procedure Codes: * true * Date: Generated for Char kevin/Nanci/Sherryitting on: 12:37 PM EDT
--- OUTSIDE RECORDS SUMMARY | 2025-02-22 12:37 | XMS_ITS | Clinical Summary ---
Author Organization [facility] Address [address] [place] [address] Phone Care Team Providers Care Drafter Automotive Design Layout Name Role Phone Norma Ibrahim Primary Care Provider [phone] Allergies Active Allergy Reactions Criticality Noted Date [...] mg/dL 06/24/2023 2:04 PM EST [facility]REFERRED [facility], [facility] Glucose Lvl 103(H) 70 - 99 mg/dL 06/24/2023 2:04 PM EST [facility], [facility] BUN 14 6 - 20 mg/dL 06/24/2023 2:04 PM EST [facility], [facility] Creatinine 0.90 0.51 - 1.30 mg/dL 06/24/2023 2:04 PM EST [facility], [facility] eGFR (CKD-EPIcr 2020) 74 >=60 mL/min/1.7 3 m2 06/24/2023 2:04 PM EST [facility] Comment:Estimated GFR was ca lculated using the CKD-EPIcr (2020) equation refit without race. The equation is recommended by the National Kidney Foundation - [place] Society of Nephrology Task Force. Blood VENOUS BLOOD / Unknown Venipuncture / Unknown 06/24/2023 9:04 AM EST 06/24/2023 9:04 AM EST us Edd Garcia MD CHEMISTRY ORDERABLES Final Re sult [facility]REFERRED [facility], [facility] [address] [facility] [place] [address] [facility] [address] [place] [phone] from Last 3 Months or Most Recently Relevant to Health Maintenance Insurance [employer] [facility] [place] [address] [facility] [address] Care Teams Drafter Automotive Design Layout Relationship Specialty Start Date End Date Norma Ibrahim [address] [place] [address] [address] [place] [address] PCP - General Family Medicine 06/24/23
--- OUTSIDE RECORDS SUMMARY | 2025-02-22 12:37 | XMS_ITS | Clinical Summary ---
[facility] Address [address] [place] [address] Care Team Providers Care Boilermaker Mechanic Name Role Phone Provider, No Known Primary [...] - Td or Tdap) 05/24/[address] [place] [address] Care Teams Boilermaker Mechanic Relationship Specialty Start Date End Date Provider, No Known [facility] [place] [address] PCP - General 06/20/20
--- OUTSIDE RECORDS SUMMARY | 2025-02-22 12:37 | XMS_ITS | Encounter Summary ---
Author Organization Healthcare Address [address] [place] [address] Care Team Providers Care Mixer Operator Raw Salt Name Role Phone Bruce Ibrahim MD Primary Care Provider +1- [phone] Encounter Details Date Type Department Care Team (Late st Contact Info) Description 01/11/2025 Telephone [place] [facility] [address] [facility] 5th Floor [address], [address] [place] [address] Rossy Fernandez, LAURO [address] [facility] [address] [place] [address] Social History Tobacco Use Types [...] documented as of this encounter Care Teams Mixer Operator Raw Salt Relationship Specialty Start Date End Date Bruce Ibrahim MD [address] [place] [address] PCP - General 08/30/24 documented as of this encounter
--- OUTSIDE RECORDS SUMMARY | 2025-02-22 12:39 | XMS_ITS | Clinical Summary ---
Author Organization [facility] Address [address] [place] [address] Care Team Providers Care Natural Resource Officer Name Role Phone Bruce Ibrahim MD Primary Care Provider +1- [phone] Allergies Active Allergy Reactions Criticality Noted Date [...] hypertension 09/21/2024 Coronary artery disease invo lving [place] heart without angina pectoris 09/21/2024 Encounters Date Type Department Care Team Description 01/11/2025 [facility]phone [facility] [address] [place] [facility] 5th Floor [address], [address] [place] [address] Rossy Fernandez PA from Last [...] 2015 UKY-Zoster Vaccines (1 of 2) 2015 [id number] Vaccine ( season) 2024 05/02/2023, 03/11/2022, 01/10/2021, [...] Narrative SUNQUEST - 07/01/1994 12:00 AM EST [facility] MR #: [facility] SARAH WE[place], [place] [address] 1965 (Age: 29) F Collect Date: 06/20/1994 00:00 Receipt Date: 06/23/1994 00:00 Page 1 DEPARTMENT OF PATHOLOGY AND LABORATORY MEDICINE CYTOPATHOLOGY REPORT Email: [email or web address] [phone] * Converted Case * This report may [...] results is suggested (please call Microbiology at [phone] for results). CLINICAL INFORMATION: Menstrual History: {Not Provided} Date of Last Menstrual Period: {Not Provided} SPECIMEN DESCRIPTION: A: CERVICAL/VAGINAL SMEAR, PAP ICD: F: {Not Entered} SNOMED CODES: 1; I8M482 [id number] [id number] In cases where a pathologist has signed out the report, the service has been rendered in part by a resident. The signing pathologist has performed and is responsible for the reported pathologic evaluation. us Historical Provider LAB PATHOLOGY ORDERABLES Fin al Result SUNQUEST from Last 3 Months or Most Recently Relevant to Health Maintenance Insurance AETNA [facility] MEDICAID Care Teams Natural Resource Officer Relationship Specialty Start Date End Date Bruce Ibrahim MD [address] [place] [address] PCP - General 08/30/24
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
[2025-02-22 14:14] LABS: Magnesium 1.5 mg/dl (1.6-2.3)
[2025-02-22 15:07] LABS: Vitamin B12 936 pg/mL (239-931)
== END 2025-02-22 23:59 | disposition home or self-care (01) ==
LOC: LAB 12:35
PROVIDERS: PCP Family Medicine; Visit Provider Family Medicine
DX: E83.42 Hypomagnesemia (principal); E53.8 Deficiency of other specified B group vitamins
CPT/HCPCS: 82607; 83735

== ENCOUNTER 2025-04-11 08:55 | Outpatient (CLI) | payer OTHER, SELFPAY ==
--- OUTSIDE RECORDS SUMMARY | 2024-12-13 10:00 | XMS_ITS ---
Author Organization [facility] [address] [place] [phone] Care Team Providers Care Call Center Manager Name Role Phone Norma Ibrahim Primary Care Provider Allergies Allergen (clinical drug ingredient) Drug/Non Drug Allergy documented on EMR Reaction Allergy Type Onset Date Status Cefdinir nausea Drug Allergy Active Levaquin stomach upset Drug Allergy Act ita peanut allergenic extract Peanut (Diagnostic) anaphylaxis Drug Allergy Active Penicillin Unknown Drug Allergy Active Substance with sulfonamide structure and antibacterial mechanism of action (substance) Sulfa Antibiotics Unknown Drug Allergy Active REASON FOR VISIT Cyst Removal from Thigh Medications Medication SIG (Take, Route, Frequency, Duration) Notes Start Date End Date Status Clindamycin HCl 300 MG 1 capsule Orally twice a day 12/08/2024 Active Fluticasone Propionate 50 MCG/ACT instill 1 SPRAY IN EACH NOSTRIL TWICE DAILY Active Trulicity 0.75 MG/0.5ML 0.5 mL Subcutane ous once a week; Duration: 28 days Active metFORMIN HCl 1000 MG 1 tablet with a me al Orally twice a day; Duration: 30 days Active Montelukast Sodium 10 mg TAKE ONE TABLET BY MOUTH EVERY DAY Active Diclofenac Sodium 75 mg TAKE ONE TABLET BY MOUTH TWICE DAILY - TAKE WITH FOOD-; Duration: 90 Active Jardiance 25 mg 1 tablet Orally Once a day; Duration: 90 days Active Magnesium Oxide 400 MG 1 tablet with tiffany d Orally Once a day; Duration: 30 days 11/03/2024 Active Potassium Chloride ER 10 mEq take one capsule by mouth every day with food Active Levothyroxine Sodium 100 mcg take one tablet by mouth every day in the morning on an empty stomach Active EPINEPHrine 0.3 MG/0.3ML INJECT THE CONT ENTS OF 1 AUTO-INJECTOR INTRAMUSCULARLY ONCE NEEDED FOR ANAPHYLAXIS REACTION; Duration: 1 Active Lisinopril-hydroCHLOROthia zide 10-12.5 MG 1 tab(s) orally once a day 09/27/2013 Active Mupirocin 2 % 1 application Lump Maker ally Twice a day 07/20/2024 Active Rosuvastatin Calcium 10 MG 1 tab(s) oral ly once a day (at bedtime) 12/16/2016 Active Omeprazole 40 mg TAKE ONE CAPSULE BY MOUTH 30 minutes BEFORE morning meal EVERY DAY; Duration: 30 Active Provera 10 MG 1 tab(s) orally firs t 10 days of each month; Duration: 10 Active Metoclopramide HCl 10 MG 1 tablet before meals Orally q6h prn nausea 07/23/2023 Active Ondansetron HCl 4 MG 1 tablet Orally thr ee times a day as needed 06/30/2023 Active Aspirin 81 MG 1 tab(s) orally once a day 4 Active Lasix 40 MG 1 tab(s) orally once a day prn Active Vital Signs Weight 171.8 lbs 12/13/2024 Blood pressure systolic 116 mm Hg 12/14/19 25 Blood pressure diastolic 76 mm Hg 025 Heart Rate 70 /min 12/13/2024 Height 64.50 in 12/13/2024 BMI 29.03 kg/m2 12/13/2024 Encounters Encounter Location Date Provider Diagnosis [facility] [address] [phone] 12/13/2024 R Naga Ibrahim Sebaceous cyst L72.3 ; Local infection of the skin and subcutaneous tissue, unspecified L08.9 ; Irritation symptom of skin R23.8 and BMI 29.0-29.9,adult Z68.29 Assessments Encounter Date Diagnosis (ICD Code) Assessment Notes Treatment Notes Treatment Clinical Notes Section Notes 12/13/2024 Sebaceous cyst (ICD-10 - L72.3) 12/13/2024 Local infection of the skin and subcutaneous tissue, unspecified (ICD-10 - L08.9) 12/13/2024 Irritation symptom of skin (ICD-10 - R23.8) 12/13/2024 BMI 29.0-29.9,adult (ICD-10 - Z68.29) Plan Of Treatment Next Appt Details Follow Up: 1 week, Reason: Provider Name:Norma Ortiz, 04/25/2025 09:45:00 AM, [address], [place], [place], [phone], Procedure Notes * Category Sub-Category Detail Notes Excision, skin lesion Consent: informed c onsent obtained, Photo taken of lesion Prep: usual sterile fashio n, Betadine Anesthesia: 1% lidocaine w epine phrine, local Incision type: full thickness ellip tical, full thickness elliptical, cyst dissected out in it's entirety and excised Hemostasis: direct pressure Reapproximated with: nylon suture 4-0, i nterrupted Number of sutures placed: 2 Post-procedure: JOSE ANGEL Cohen appli ed, instructed in wound care, patient tolerated procedure well Scissor Snip Indication(s): Acrochordon (ski n tag) Locations: Right proximal inner thigh Method: The area was prepped with Betadine. 1% Lidocaine with epi. Utilizing an Adson's forceps and curved scissor, the lesion was snipped at the base. Post-op: The post-procedure c are instructions were reviewed Progress Notes * DIONE WEAVEROB:1965 (59 yo F)Acc No.[id number]:12/13/2024 Progress Notes Patient: CINDA BERRIOS Provider: Norma Ibrahim M.D. :1965 A ge:59 Y S ex:Female Date:12/13/2024 Address:[address] [place] [address], [place], [id number] Subjective: * Chief Complaints: * 1 . Cyst Removal from Thigh. * HPI: D ermatology: 59 year old female presents with c/o cyst P t here for minor surgery to remove a sebaceous cyst of the right thigh. Pt states the cyst is not as tender. Pt states she has finished the antibiotic. However, because of the location of the cyst it constantly rubs on her clothing and is irritating when walking.. * ROS: D ERMATOLOGY: no R palmira. [...] DAILY - TAKE WITH FOOD- , Taking Magnesium Oxide 400 MG Tablet [...] day , Taking Trulicity 0.75 MG/0.5ML Solution Auto- injector 0.5 mL Subcutaneous once a week , Taking Clindamycin HCl 300 MG Capsule 1 capsule Orally twice a day , Discontinued Doxycycline Hyclate 100 MG Capsule 1 capsule Orally twice a day , Discontinued Medrol 4 MG Tablet Therapy Pack as directed Orally , Medication List reviewed and reconciled with the patient * Allergies: P enicillin, Sulfa Antibiotics, Peanut (Diagnostic): anaphylaxis, Cefdinir: nausea - Side Effects, Levaquin: stomach upset - Side Effects. Objective: * Vitals: W t: 171.8, Temp: 98.5, BP: 116/76, HR: 70, Nurse: pauline, Ht: 64.50, BMI:29.03. * Examination: G eneral Examination: Skin: 1 cm sebaceous cyst on right inner proximal thigh with no induration or drainage today. Is press tender smoke signal to palpation. Just above this area there is a 3 mm skin tag.. Assessment: * Assessment: 1. S ebaceous cyst - L72.3 (Primary) 2 . L ocal infection of the skin and subcutaneous tissue, unspecified - L08.9 3 . I rritation symptom of skin - R23.8? 4. B MD 29.0-29.9,adult - Z68.29 Plan: * Treatment: * Procedures: E xcision, skin lesion: Consent: i nformed consent obtained, Photo taken of lesion.?Prep: u sual sterile fashion, Betadine. A nesthesia: 1 % lidocaine w epinephrine, local. I ncision type: f ull thickness elliptical, full thickness elliptical, cyst dissected out in it's entirety and excised. H emostasis: d irect pressure. R eapproximated with:?nylon suture 4-0, interrupted. N umber of sutures placed: 2 . P ost-procedure: N eosporin, DSD applied, instructed in wound care, patient tolerated procedure well. ? S cissor Snip: Indication(s): A crochordon (skin tag). L ocations:?Right proximal inner thigh. M ethod: T he area was prepped with Betadine. 1% Lidocaine with epi. Utilizing an Adson's forceps and curved scissor, the lesion was snipped at the base. . Post-op: T martín post-procedure care instructions were reviewed. * Procedure Codes: 1 1401 EXCISION BENIGN LESION, TRUNK,ARMS,LEG, 0.6 TO 1.0 CM, 44595 SHAVE LESION,TRUNK,ARMS,LEGS 0.5 CM OR LESS, 1036F TOBACCO NON-USER, 3074F SYST BP LT 130 MM HG, 3078F DIAST BP < 80 MM HG * Follow Up: 1 week * Images: Billing Information: * Visit Code: 64397 Office Visit, Est Pt., Level 2. Modifiers: 25 * Procedure Codes: 50200 EXCISION BENIGN LESION, TRUNK,ARMS,LEG, 0.6 TO 1.0 CM. 48212 SHAVE LESION,TRUNK,ARMS,LEGS 0.5 CM OR LESS. 1036F TOBACCO NON-USER. 3074F SYST BP LT 130 MM HG. 3078F DIAST BP < 80 MM HG. * Electronic signature of Norma Ibrahim MD on 04/11/2025 at 08:58 AM EST Sign off status: Pending * Provider: Norma Ibrahim M.D. Date: 0 12/13/2024 Generated for Char kevin/aNnci/Sherryitting on: 1 06/12/2024 08:58 AM EST History and Physical Notes * HPI (History of Present Illness) Category Sub-Category Detail Notes Category Not es Dermatology cyst Pt here for matilde r surgery to remove a sebaceous cyst of the right thigh. Pt states the cyst is not as tender. Pt states she has finished the antibiotic. However, because of the location of the cyst it constantly rubs on her clothing and is irritating when walking. Examination Category Sub-Category Detail Notes Category Not es General Examination Skin: 1 cm sebaceo us cyst on right inner proximal thigh with no induration or drainage today. Is press tender smoke signal to palpation. Just above this area there is a 3 mm skin tag.
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
--- OUTSIDE RECORDS SUMMARY | 2025-02-02 05:05 | XMS_ITS ---
Author Organization [facility] Address [facility] [address] [place] [phone] Care Team Providers Care Plate Drying Machine Tender Name Role Phone Norma Ibrahim Primary Care Provider REASON FOR VISIT B12 injection Medications Medication SIG (Take, Route, Frequency, Duration) Notes Start Date End Date Status Levothyroxine Sodium 100 mcg 1 tablet orally once a day; Duration: 90 days Active Trulicity 0.75 MG/0.5ML 0.5 mL Subcutane ous once a week; Duration: 28 days Active metFORMIN HCl 1000 MG 1 tablet with a me al Orally twice a day; Duration: 30 days Active Fluticasone Propionate 50 MCG/ACT instill 1 SPRAY IN EACH NOSTRIL TWICE DAILY Active Montelukast Sodium 10 mg TAKE ONE TABLET BY MOUTH EVERY DAY Active Mupirocin 2 % 1 application Enterprise Integration Architect ally Twice a day 07/20/2024 Active Potassium Chloride ER 10 mEq take one capsule by mouth every day with food Active EPINEPHrine 0.3 MG/0.3ML INJECT THE CONT ENTS OF 1 AUTO-INJECTOR INTRAMUSCULARLY ONCE NEEDED FOR ANAPHYLAXIS REACTION; Duration: 1 Active Diclofenac Sodium 75 mg TAKE ONE TABLET BY MOUTH TWICE DAILY - TAKE WITH FOOD-; Duration: 90 Active Jardiance 25 mg 1 tablet Orally Once a day; Duration: 90 days Active Lisinopril-hydroCHLOROthia zide 10-12.5 MG 1 tab(s) [...] times a day as needed 06/30/2023 Active Vitamin B-12 1000 MCG 1 tablet Orally Once a day 1 Active Magnesium Oxide 400 MG 1 tablet with tiffany d Orally twice a day 11/03/2024 Active Provera 10 MG 1 tab(s) orally firs t 10 days of each month; Duration: 10 Active Lasix 40 MG 1 tab(s) orally once a day prn Active Aspirin 81 MG 1 tab(s) orally once a day 4 Active Encounters Encounter Location Date Provider Diagnosis [facility] 1210 [facility] 36 [facility] [address] [place] [id number] 02/02/2025 Norma Ibrahim Vitamin B12 deficien cy E53.8 Assessments Encounter Date Diagnosis (ICD Code) Assessment Notes Treatment Notes Treatment Clinical Notes Section Notes 02/02/2025 Vitamin B12 deficiency (ICD-10 - E53.8) Plan Of Treatment Next Appt Details Provider Name:Norma Ortiz, 04/25/2025 09:45:00 AM, 1210 [facility] 36 [facility], [address], [place], [phone], Medications Administered Medication Instructions Date of Administration Dosage Notes B-12 02/02/2025 1 mL Progress Notes * DIONE WEAVEROB:1965 (59 yo F)Acc No.[id number]:02/02/2025 Patient: CINDA BERRIOS Provider: Norma Ibrahim M.D. :1965 A ge:59 Y S ex:Female Date:02/02/2025 Address:[address] [place] [address], [place], [id number] Subjective: * Chief Complaints: * 1 . B12 injection. * Medical History: * Medications: T aking Aspirin 81 MG [...] with food Orally twice a day , Taking Vitamin B-12 1000 MCG Tablet 1 tablet Orally Once a day , Notes: OTC, Medication List reviewed and reconciled with the patient Objective: * Vitals: Assessment: * Assessment: 1. V itamin B12 deficiency - E53.8 (Primary) Plan: * Treatment: * Therapeutic Injections: B-12 : 1 mL (Route: Intramuscular) given by KENDAL Oliveira on left deltoid (Vitamin B12 deficiency) * Procedure Codes: J 3420 B-12, 28452 ADMINISTRATION OF INJECTION * Images: Billing Information: * Visit Code: * Procedure Codes: J3420 B-12. 21704 ADMINISTRATION OF INJECTION. * Electronic signature of Norma Ibrahim MD on 04/11/2025 at 08:57 AM EST Sign off status: Pending * Provider: Norma Ibrahim M.D. Date: 1 Generated for Char kevin/Nanci/Aman on: 1 06/12/2024 08:57 AM EST
--- OUTSIDE RECORDS SUMMARY | 2025-02-09 05:00 | XMS_ITS ---
Author Organization [facility] Address 1210 [facility] 36 [facility] [address] [place] [phone] Care Team Providers Care Special Inspector Name Role Phone Norma Ibrahim Primary Care Provider REASON FOR VISIT B12 Encounters Encounter Location Date Provider Diagnosis [facility] [address] [facility] [address] [place] [id number] 02/09/2025 Norma Ibrahim Vitamin B12 deficien cy E53.8 Assessments Encounter Date Diagnosis (ICD Code) Assessment Notes Treatment Notes Treatment Clinical Notes Section Notes 02/09/2025 Vitamin B12 deficiency (ICD-10 - E53.8) Plan Of Treatment Next Appt Details Follow Up: 1 Week, Reason: Provider Name:Norma Ortiz, 04/25/2025 09:45:00 AM, [address] [facility], [address], [place], [phone], Medications Administered Medication Instructions Date of Administration Dosage Notes B-12 02/09/2025 1 mL Progress Notes * DIONE WEAVEROB:1965 (59 yo F)Acc No.[id number]:02/09/2025 Patient: CINDA BERRIOS Provider: Norma Ibrahim M.D. :1965 A ge:59 Y S ex:Female Date:02/09/2025 Address:[address] [place] [address] [id number] Subjective: * Chief Complaints: * 1 . B12. * Medical History: Objective: * Vitals: Assessment: * Assessment: 1. V itamin B12 deficiency - E53.8 (Primary) Plan: * Treatment: * Therapeutic Injections: B-12 : 1 mL (Route: Intramuscular) given by KENDAL Oliveira on right deltoid (Vitamin B12 deficiency) * Procedure Codes: J 3420 B-12, 44506 ADMINISTRATION OF INJECTION * Follow Up: 1 Week * Images: Billing Information: * Visit Code: * Procedure Codes: J3420 B-12. 11093 ADMINISTRATION OF INJECTION. * Electronic signature of Norma Ibrahim MD on 04/11/2025 at 08:57 AM EST Sign off status: Pending * Provider: Norma Ibrahim M.D. Date: Generated for Char kevin/Nanci/Aman on: 06/12/2024 08:57 AM EST
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
--- OUTSIDE RECORDS SUMMARY | 2025-02-21 10:26 | XMS_ITS ---
Author Organization [facility] Address 1210 [facility] 36 [facility] [address] [place] [phone] Care Team Providers Care Channel Installer Name Role Phone Norma Ibrahim Primary Care Provider Results Component Value Reference Range Notes H-Magnesium Reviewed date:02/23/2025 12:49:11 PM Interpretation:1.5 Performing Lab: Notes/Report: MG 1.5 1.6-2.3 mg/dl H-VITAMIN B12 Reviewed date:02/23/2025 12:49:11 PM Interpretation:936 Performing Lab: Notes/Report: VITB12 936 239-931 pg/mL REASON FOR VISIT Lab Order Encounters Encounter Location Date Provider Diagnosis [facility] 1210 [facility] 36 [facility] [address] [place] [phone] 02/21/2025 Norma Ibrahim Hypomagnesemia E83.4 2 and Vitamin B12 deficiency E53.8 Assessments Encounter Date Diagnosis (ICD Code) Assessment Notes Treatment Notes Treatment Clinical Notes Section Notes 02/21/2025 Hypomagnesemia (ICD-10 - E83.42) 02/21/2025 Vitamin B12 deficiency (ICD-10 - E53.8) Plan Of Treatment Next Appt Details Provider Name:Norma Ortiz, 04/25/2025 09:45:00 AM, 1210 [facility] 36 [facility], [address], [place], [phone], Progress Notes * DIONE WEAVEROB:1965 (59 yo F)Acc No.[id number]:02/21/2025 Patient: S CINDA SINGH :1965 A ge:59 Y S ex:Female Address:[address] [place] [address], [place] [address] Subjective: * Chief Complaints: * L ab Order * Medical History: * Surgical History: * Hospitalization/Major Diagno stic Procedure: * Medications: Objective: * Vitals: * Physical Examination: Assessment: * Assessment: 1. H ypomagnesemia - E83.42 2 . V itamin B12 deficiency - E53.8 ? Plan: * Treatment: Value Reference Range M G 1.5 L 1.6-2.3 - mg/dl * Norma Ibrahim 02/23/2025 12:48:19 PM EDT > discussed with patient during office visitThis lab was reviewed by Norma Ibrahim on 02/23/2025 at 12:49 PM EDT 2.?Vitamin B12 deficiency?LAB: H-VITAMIN B12* Value Reference Range V ITB12 936 H 239-931 - pg/mL * Norma Ibrahim 02/23/2025 12:48:19 PM EDT > discussed with patient during office visitThis lab was reviewed by Norma Ibrahim on 02/23/2025 at 12:49 PM EDT * Procedure Codes: * true * Date: Generated for Char kevin/Nanci/Aman on: 06/12/2024 08:57 AM EST
--- OUTSIDE RECORDS SUMMARY | 2025-02-23 05:15 | XMS_ITS ---
[facility] Address [address] [place] [id number] Care Team Providers Care Rand Maker Name Role Phone Norma Ibrahim Primary [...] Unknown Drug Allergy Active REASON FOR VISIT 4 weeks Medications Medication SIG (Take, Route, Frequency, Duration) Notes Start Date End Date Status Aspirin 81 MG 1 tab(s) orally once [...] once a week; Duration: 28 days Active Montelukast Sodium 10 mg TAKE ONE TABLET BY MOUTH EVERY DAY Active metFORMIN HCl 1000 MG 1 tablet with a me al Orally twice a day; Duration: 30 days Active Levothyroxine Sodium 100 mcg 1 tablet orally once a day; Duration: 90 days Active Vitamin B-12 1000 MCG 1 tablet Orally Once a day 1 Active Fluticasone Propionate 50 MCG/ACT 1 spray in each nostril Nasally Twice a day; Duration: 30 days Active Diclofenac Sodium 75 mg TAKE ONE TABLET BY MOUTH TWICE DAILY - TAKE WITH FOOD-; Duration: 90 Active Magnesium Glycinate 120 MG 1 cap Orally twice a day 02/23/2025 Active Mupirocin 2 % 1 application Director Marketing ally Twice a day 07/20/2024 Active Jardiance 25 mg 1 tablet Orally Once a day; Duration: 90 days Active Omeprazole 40 mg TAKE ONE CAPSULE BY MOUTH 30 minutes BEFORE morning meal EVERY DAY; Duration: 30 Active EPINEPHrine 0.3 MG/0.3ML INJECT THE CONT ENTS OF 1 AUTO-INJECTOR INTRAMUSCULARLY ONCE NEEDED FOR ANAPHYLAXIS REACTION; Duration: 1 Active Potassium Chloride ER 10 mEq take one capsule by mouth every day with food Active Rosuvastatin Calcium 10 MG 1 tab(s) oral ly once a day (at bedtime) 12/16/2016 Active Lisinopril-hydroCHLOROthia zide 10-12.5 MG 1 tab(s) orally once a day 09/27/2013 Active Metoclopramide HCl 10 MG 1 tablet before meals Orally q6h prn nausea 07/23/2023 Active Vital Signs Weight 166.0 lbs 02/23/2025 Blood pressure systolic 120 mm Hg 02/24/20 25 Blood pressure diastolic 70 mm Hg 025 Heart Rate 101 /min 02/23/2025 Height 64.50 in 02/23/2025 BMI 28.05 kg/m2 02/23/2025 Encounters Encounter Location Date Provider Diagnosis [facility] [address] [id number] 02/23/2025 R Naga Ibrahim Hypomagnesemia E83.4 2 and Vitamin B 12 deficiency E53.8 Assessments Encounter Date Diagnosis (ICD Code) Assessment Notes Treatment Notes Treatment Clinical Notes Section Notes 02/23/2025 Hypomagnesemia (ICD-10 - E83.42) 02/23/2025 Vitamin B 12 deficiency (ICD-10 - E53.8) Continue OTC supplement Plan Of Treatment Medication Medication Name Sig Start Date Stop Date Notes Magnesium Oxide 400 MG 1 tablet with tiffany d Orally twice a day 11/03/2024 Magnesium Glycinate 120 MG 1 cap Orally twice a day 2024 Treatment Notes Assessment Notes Vitamin B 12 deficiency Continue OTC sup plement Pending Test Test Name Order Date H-TSH 02/23/2025 H-CBC 02/23/2025 H-Lipid Panel 02/23/2025 H-CMP 02/23/2025 H-Glycohemoglobin A1C 02/23/2025 H-Magnesium 02/23/2025 H-VITAMIN B12 02/23/2025 Next Appt Details Follow Up: 2 Months with lab s, Reason: Provider Name:Norma Julio et, 04/25/2025 09:45:00 AM, [address], [place], [place], [id number], Progress Notes * DIONE WEAVEROB:1965 (59 yo F)Acc No.[id number]:02/23/2025 Progress Notes Patient: CINDA BERRIOS Provider: Norma Ibrahim M.D. :1965 A ge:59 Y S ex:Female Date:02/23/2025 Address:[address] [place] [address], [facility], [id number] Subjective: * Chief Complaints: * 1 . 4 weeks. * HPI: H PI: She returns for follow-up on her low B12 and magnesium. She has completed four weekly B12 injections and has been taking her OTC B12 supplement. She has also continued on magnesium replacement but notes it does cause some nausea. Generally she is feeling somewhat better but still complains of fatigue. She has difficulty falling asleep at night. No reported sleep apnea. * ROS: D ERMATOLOGY: no R palmira. [...] meal Orally twice a day , Taking Levothyroxine Sodium 100 mcg Tablet 1 tablet orally once a day , Taking Magnesium Oxide 400 MG Tablet 1 tablet with food Orally twice a day , Taking Vitamin B-12 1000 MCG Tablet 1 tablet Orally Once a day , Notes: OTC, Taking Fluticasone Propionate 50 MCG/ACT Suspension 1 spray in each nostril Nasally Twice a day , Taking Trulicity 0.75 MG/0.5ML Solution Auto-injector 0.5 mL Subcutaneous once a week , Medication List reviewed and reconciled with the patient * Allergies: P enicillin, Sulfa Antibiotics, Peanut (Diagnostic): anaphylaxis, Cefdinir: nausea - Side Effects, Levaquin: stomach upset - Side Effects. Objective: * Vitals: W t: 166.0, Temp: 98.6, BP: 120/70, HR: 101, Nurse: , Ht: 64.50, BMI:28.05. Assessment: * Assessment: 1. H ypomagnesemia - E83.42 (Primary) 2 . V itamin B 12 deficiency - E53.8? Plan: * Treatment: 2. V itamin B 12 deficiency Notes: Continue OTC supplement * Labs: * L ab: H-Lipid Panel L ab: H-Magnesium L ab: H-VITAMIN B12 L ab: H-CMP L ab: H-CBC L ab: H-TSH L ab: H-Glycohemoglobin A1C * Follow Up: 2 Months with labs * Images: Billing Information: * Visit Code: 81015 Office Visit, Est Pt., Level 3. * Procedure Codes: * Electronic signature of Norma Ibrahim MD on 04/11/2025 at 08:58 AM EST Sign off status: Pending * Provider: Norma Ibrahim M.D. Date: Generated for Char kevin/Nanci/Sherryitting on: 06/12/2024 08:58 AM EST
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
--- OUTSIDE RECORDS SUMMARY | 2025-04-11 08:57 | XMS_ITS | Clinical Summary ---
[facility] Address [address] [place] [address] Care Team Providers Care Extra Hand Name Role Phone Provider, No Known Primary [...] - Td or Tdap) 05/24/[address] [place] [address] Care Teams Extra Hand Relationship Specialty Start Date End Date Provider, No Known [facility] [place] [place] [address] PCP - General 06/20/20
--- OUTSIDE RECORDS SUMMARY | 2025-04-11 08:57 | XMS_ITS | Clinical Summary ---
Author Organization [facility] Address [address] [place] [address] Phone Care Team Providers Care Ela Teacher Name Role Phone Norma Ibrahim Primary Care Provider [phone] Allergies Active Allergy Reactions Criticality Noted Date [...] mg/dL 06/24/2023 2:04 PM EST [facility] Glucose Lvl 103(H) 70 - 99 mg/dL 06/24/2023 2:04 PM EST [facility] BUN 14 6 - 20 mg/dL 06/24/2023 2:04 PM EST [facility] Creatinine 0.90 0.51 - 1.30 mg/dL 06/24/2023 2:04 PM EST [facility] eGFR (CKD-EPIcr 2020) 74 >=60 mL/min/1.7 3 m2 06/24/2023 2:04 PM EST [facility] Comment:Estimated GFR was ca lculated using the CKD-EPIcr (2020) equation refit without race. The equation is recommended by the National Kidney Foundation - [place] [employer] of Nephrology Task Force. Blood VENOUS BLOOD / Unknown Venipuncture / Unknown 06/24/2023 9:04 AM EST 06/24/2023 9:04 AM EST us Edd Garcia MD CHEMISTRY ORDERABLES Final Re sult [facility] [address] [facility], [place] [address] [facility] [address] [place] [phone] from Last 3 Months or Most Recently Relevant to Health Maintenance Insurance [employer] [facility] [place] [address] [facility] [address] Care Teams Ela Teacher Relationship Specialty Start Date End Date Norma Ibrahim [address] [place] [address] [address] [place] [address] PCP - General Family Medicine 06/24/23
--- OUTSIDE RECORDS SUMMARY | 2025-04-11 08:59 | XMS_ITS | Clinical Summary ---
Author Organization [facility] Address [address] [place] [address] Care Team Providers Care Credit Historian Name Role Phone Bruce Ibrahim MD Primary Care Provider [phone] Allergies Active Allergy Reactions Criticality Noted Date [...] hypertension 09/21/2024 Coronary artery disease invo lving [place] [facility] without angina pectoris 09/21/2024 Encounters Date Type Department Care Team Description 01/11/2025 [facility]phone [facility] [address] [facility] [address] [place] [address] Rossy Fernandez PA from Last [...] 2015 [facility]-Zoster Vaccines (1 of 2) 2015 DIT-KIIVI-76 Vaccine ( season) 2024 05/02/2023, 03/11/2022, 01/10/2021, Additional history exists [facility]-Influenza Vaccine (#1) 2024 [facility]-DTaP,Tdap,and Td Vaccines (2 - Td or Tdap) 05/24/2028 05/24/2018 [facility]-Cervical Cancer Screening Discontinued [facility]-HPV/Cotest Discontinued 06/20/1994, 0 07/1993, 12/13/1993, Additional history exists [facility]-Pap Smear Discontinued 06/20/1994, 0 07/1993, 12/13/1993, Additional history exists [facility]-Hepatitis B Vaccines Completed 005, 12/11/2003, 11/09/2003 [facility]-Obesity Intervention Completed 09/28/2024, 08/26 HPV Vaccines (No Doses Required) Completed [facility]-HIB Vaccines Aged Out No longer e [...] Narrative [facility] - 07/01/1994 12:00 AM EST [facility] MR #: [facility] [address] [place], [place] [address] 1965 (Age: 29) F Collect Date: 06/20/1994 00:00 Receipt Date: 06/23/1994 00:00 Page 1 DEPARTMENT OF PATHOLOGY AND LABORATORY MEDICINE CYTOPATHOLOGY REPORT Email: [email or web address] * Converted Case * This report may [...] results is suggested (please call Microbiology at [phone] for results). CLINICAL INFORMATION: Menstrual History: {Not Provided} Date of Last Menstrual Period: {Not Provided} SPECIMEN DESCRIPTION: A: CERVICAL/VAGINAL SMEAR, PAP ICD: F: {Not Entered} SNOMED CODES: 1; [id number] In cases where a pathologist has signed out the report, the service has been rendered in part by a resident. The signing pathologist has performed and is responsible for the reported pathologic evaluation. us Historical Provider LAB PATHOLOGY ORDERABLES Fin al Result SUNQUEST from Last 3 Months or Most Recently Relevant to Health Maintenance Insurance [place] [id number] [employer] [facility] MEDICAID Care Teams Credit Historian Relationship Specialty Start Date End Date Bruce Ibrahim MD [address] [place] [address] PCP - General 08/30/24
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
[2025-04-11 10:07] LABS: Hematocrit 35.8 % (37.0-47.0); Hemoglobin 11.5 g/dL (12.2-16.2); Immature Granulocytes % 0.1 %; Mean Corpuscular HGB Conc 32.1 g/dL (31.8-35.4); Mean Corpuscular Hemoglobin 27.7 pg (27.0-31.2); Mean Corpuscular Volume 86.3 fl (81-99); Nucleated Red Blood Cells % 0 %; Platelet Count 437 K/mm3 (142-424); Red Blood Count 4.15 M/mm3 (4.20-5.40); Red Cell Distribution Width-SD 47.3 fL; White Blood Count 7.0 K/mm3 (4.8-10.8)
[2025-04-11 11:08] LABS: Alanine Aminotransferase 16 U/L (12-78); Albumin Level 4.3 g/dl (3.5-5.0); Albumin/Globulin Ratio 1.9 (1.1-1.8); Alkaline Phosphatase 82 U/L (38-126); Anion Gap 14.1 mEq/L (5-15); Aspartate Amino Transferase 18 U/L (14-36); Bilirubin,Total 0.6 mg/dl (0.2-1.3); Blood Urea Nitrogen 23 mg/dl (7-17); Calcium 9.8 mg/dl (8.4-10.2); Carbon Dioxide 27 mmol/L (22.0-30.0); Chloride 101 mmol/L (98-107); Cholesterol 129 mg/dl (140-200); Creatinine,Serum 1.00 mg/dl (0.52-1.04); Estimated Glomerular Filt Rate 57 ml/min (>60); GFR (African American) 69 ML/MIN (>60); Globulin 2.3 g/dL (1.3-3.2); Glucose 90 mg/dl (74-100); HDL Cholesterol 54 mg/dl (40-60); Magnesium 1.9 mg/dl (1.6-2.3); Potassium 4.1 mmoL/L (3.5-5.1); Sodium 138 mmol/L (136-145); Total Protein,Serum 6.6 g/dl (6.3-8.2); Triglycerides 149 mg/dl (30-150)
[2025-04-11 11:39] LABS: Thyroid Stimulating Hormone 2.81 uIU/mL (0.465-4.68)
[2025-04-11 11:56] LABS: Hemoglobin A1C 5.8 % (4.0-6.0)
[2025-04-11 11:58] LABS: Vitamin B12 923 pg/mL (239-931)
== END 2025-04-11 23:59 | disposition home or self-care (01) ==
LOC: LAB 08:55
PROVIDERS: PCP Family Medicine; Visit Provider Family Medicine
DX: E53.8 Deficiency of other specified B group vitamins (principal); E03.9 Hypothyroidism, unspecified; E83.42 Hypomagnesemia; E78.5 Hyperlipidemia, unspecified; E11.9 Type 2 diabetes mellitus without complications
CPT/HCPCS: 36415; 80053; 80061; 82607; 83036; 83735; 84443; 85025